=== PATIENT | female | born 1945 | race Caucasian/White ===

== ENCOUNTER 2016-08-22 13:06 | Outpatient (CLI) | payer MEDICARE, OTHER | END 2016-08-22 13:07 | disposition home or self-care (01) | DX: R30.0 Dysuria (principal) ==

== ENCOUNTER 2016-08-28 08:00 | Outpatient (CLI) | payer MEDICARE, OTHER | END 2016-08-28 23:59 | disposition home or self-care (01) | DX: N39.0 Urinary tract infection, site not specified (principal) ==

== ENCOUNTER 2016-09-12 | Outpatient (CLI) | payer MEDICARE, OTHER | END 2016-09-12 18:53 | disposition EMS.NT | DX: Z03.89 Encounter for observation for other suspected diseases and conditions ruled out (principal) ==

== ENCOUNTER 2016-10-30 10:32 | Outpatient (CLI) | payer MEDICARE, OTHER | END 2016-10-30 23:59 | DX: R30.0 Dysuria (principal) ==

== ENCOUNTER 2016-11-16 08:00 | Outpatient (CLI) | payer MEDICARE, OTHER | END 2016-11-16 08:01 | disposition home or self-care (01) | DX: R30.0 Dysuria (principal) ==

== ENCOUNTER 2017-03-28 08:00 | Outpatient (CLI) | payer MEDICARE, OTHER | END 2017-03-28 08:01 | disposition home or self-care (01) | LOC: LAB.WCP 08:00 | PROVIDERS: ATTEND Family Medicine | DX: D39.0 Neoplasm of uncertain behavior of uterus (principal); R19.09 Other intra-abdominal and pelvic swelling, mass and lump | CPT/HCPCS: 36415; 86304 ==

== ENCOUNTER 2017-04-18 08:42 | Outpatient (CLI) | payer MEDICARE, OTHER ==
[2017-04-18 10:07] LABS: INR 1.1 (0.8-1.2); PT - PROTHROMBIN TIME 12.3 secs (9.9-12.6)
[2017-04-18 10:14] LABS: PARTIAL THROMBOPLASTIN TIME 26.4 secs (24.9-33.3)
[2017-04-18] MEDS ORDERED: BUFFERED LIDOCAINE 10 ML SYRINGE IU ONE (11:42)
--- NOTE | 2017-04-18 13:29 | Ultrasound Report ---
ULTRASOUND-GUIDED LEFT THORACENTESIS: 04/18/2017 CLINICAL INDICATION: Likely ovarian cancer, cytology for diagnosis. FINDINGS: Following obtaining informed consent, a suitable site on the patient's left posterior thor ax was selected with ultrasound. The skin was prepped and draped in the usual sterile fashion. The sk in and soft tissues were anesthetized with lidocaine. A Kix-B-[id number] catheter was inserted into the left pleural space, and 500 mL of pleural fluid was removed without difficulty. The patient tolerate d the procedure well. No immediate complications. Fluid was submitted to the lab for cytology. IMPRESSION: SUCCESSFUL LEFT ULTRASOUND-GUIDED THORACENTESIS, YIELDING 500 mL OF FLUID. FLUID SUBMITT ED TO THE LAB FOR CYTOLOGY. JOB #: [id number] EXT JOB #:[id number]
[2017-04-18 15:09] VITALS: BP 149/57
[2017-04-18] MEDS ORDERED: IOPAMIDOL-300 100 ML VIAL IVP ONE (16:05)
--- NOTE | 2017-04-19 08:30 | CT Report ---
CT CHEST WITH AND WITHOUT CONTRAST: 04/18/2017 CLINICAL INDICATION: Large pelvic mass, effusion, evaluate for pulmonary metastatic disease. TECHNIQUE: Axial CT images of the chest were obtained prior to and following 50 mL Isovue-[address] intrav [address] No previous CT is available for comparison. In accordance with CT protocol optimization, one or more of the following dose reduction techniques w ere utilized for this exam: automated exposure control, adjustment of mA and/or KV based on patient size, or use of iterative reconstructive technique. FINDINGS: The heart and great vessels demonstrate atherosclerotic calcifications. A small hiatal he rnia is present. Calcified mediastinal lymph nodes are present. No adenopathy is seen. There is a small residual left pleural effusion (ultrasound-guided left thoracentesis performed prior to CT). T here is a possible left pleural nodule, measuring 1.6 cm, in the lateral costophrenic angle, and left lower lobe atelectasis. Calcified granuloma is noted. No right effusion is seen. No right pulmona ry nodule or mass lesion is appreciated. Osseous structures demonstrate degenerative changes. A cys t is noted in the left lobe of the thyroid. IMPRESSION: POSSIBLE LEFT PLEURAL-BASED NODULE, MEASURING 1.6 CM. SMALL RESIDUAL EFFUSION AND LEFT LOWER LOBE ATELECTASIS. CHANGES OF OLD GRANULOMATOUS DISEASE. JOB #: [id number] EXT JOB #:[id number]
--- NOTE | 2017-04-19 08:38 | CT Report ---
CT ABDOMEN AND PELVIS WITH CONTRAST: 04/18/2017 CLINICAL INDICATION: Large pelvic mass. COMPARISON: Outside CT 02/28/2017. TECHNIQUE: Axial CT images of the abdomen and pelvis were obtained with 50 mL Isovue-300 intravenous ly. In accordance with CT protocol optimization, one or more of the following dose reduction techniques w ere utilized for this exam: automated exposure control, adjustment of mA and/or KV based on patient size, or use of iterative reconstructive technique. FINDINGS: The liver demonstrates changes of old granulomatous disease. A 6-mm hypodensity persists in the left lobe, and a small focus of fatty infiltration is seen adjacent to the falciform ligament. No new hepatic lesion is seen. The spleen demonstrates changes of old granulomatous disease. A sm all splenule is seen in the splenic hilum. Nodular enlargement of the left adrenal gland is stable. The right adrenal gland is unremarkable. The kidneys are unremarkable. The gallbladder is not dila anjali. An IVC filter is noted. No bowel dilatation, free gas, or free fluid is seen. No abdominal ad enopathy is appreciated. Pelvis: The pelvis is dominated by a heterogeneous mass, with its epicenter just left of midline, me asuring approximately 24 x 12 x 15 cm. It demonstrates heterogeneous internal enhancement and cystic spaces, and a few calcifications. Trace free fluid is noted adjacent to the mass and in the cul-de- sac. It likely arose from the left ovary, and has not changed significantly from previous CT. The u terus appears separate from the mass, and appears unremarkable. No definite pelvic sidewall adenopat hy is appreciated. The osseous structures demonstrate degenerative changes. IMPRESSION: LARGE, HETEROGENEOUS MASS IN THE PELVIS, LIKELY ARISING FROM THE LEFT OVARY. TRACE FREE FLUID. NONSPECIFIC 6-MM HYPODENSE NODULE IN THE LEFT LOBE OF THE LIVER, STABLE. JOB #: [id number] EXT JOB #:[id number]
== END 2017-04-18 08:43 | disposition home or self-care (01) ==
LOC: DI 08:42
PROVIDERS: ATTEND Obstetrics & Gynecology Gynecologic Oncology
DX: J90 Pleural effusion, not elsewhere classified (principal); J98.11 Atelectasis; R91.8 Other nonspecific abnormal finding of lung field; R19.04 Left lower quadrant abdominal swelling, mass and lump; K76.9 Liver disease, unspecified
CPT/HCPCS: 32555; 36415; 71270; 74177; 85610; 85730; Q9967

== ENCOUNTER 2017-06-05 08:20 | Outpatient (CLI) | payer MEDICARE, OTHER ==
--- NOTE | 2017-06-06 08:16 | XRAY Report ---
PELVIS AND LEFT HIP: 06/05/2017 COMPARISON STUDY: None. INDICATION: Left hip pain. TECHNIQUE: Two views of the pelvis and left hip. FINDINGS: Normal alignment. No evidence of acute fracture or other acute bone findings. No appreci able degenerative changes. Vascular calcifications are noted. IMPRESSION: ESSENTIALLY NEGATIVE HIP AND PELVIS. 08:9:16 JOB #: [id number] EXT JOB #:[id number]
== END 2017-06-05 08:21 | disposition home or self-care (01) ==
LOC: DI 08:20
PROVIDERS: ATTEND Family Medicine
DX: M25.552 Pain in left hip (principal)

== ENCOUNTER 2017-07-16 15:00 | Outpatient (CLI) | payer MEDICARE, OTHER | END 2017-07-16 15:01 | disposition home or self-care (01) | LOC: LAB.R 15:00 | PROVIDERS: ATTEND Family Medicine | DX: N39.0 Urinary tract infection, site not specified (principal) | CPT/HCPCS: 87086 ==

== ENCOUNTER 2017-08-20 09:59 | Outpatient (CLI) | payer MEDICARE, OTHER ==
[2017-08-20 12:48] LABS: BASOPHILS % (AUTO) 0.6 %; EOSINOPHILS # (AUTO) 0.2 10^3/uL (0.0-0.7); EOSINOPHILS % (AUTO) 2.1 %; HGB - HEMOGLOBIN 13.1 g/dL (12.0-16.0); LYMPHOCYTES # (AUTO) 1.1 10^3/uL (1.5-3.5); MEAN CORPUSCULAR HEMOGLOBIN 29.7 pg (27.0-31.0); MEAN CORPUSCULAR HGB CONC 33.9 g/dL (32.0-36.0); MEAN CORPUSCULAR VOLUME 87.7 fL (81.0-99.0); MONOCYTES # (AUTO) 0.4 10^3/uL (0.0-1.0); MONOCYTES % (AUTO) 4.8 %; NEUTROPHILS # (AUTO) 6.9 10^3/uL (1.5-6.6); NEUTROPHILS % (AUTO) 79.5 %; PLT - PLATELET COUNT 225 10^3/uL (130-450); RED BLOOD COUNT 4.42 10^6/uL (4.20-5.40); RED CELL DISTRIBUTION WIDTH 14.2 % (12.0-15.0); WHITE BLOOD COUNT 8.7 x10^3/uL (4.8-10.8)
[2017-08-20 13:23] LABS: ALBUMIN 3.6 g/dL (3.2-5.5); ALKALINE PHOSPHATASE 75 IU/L (42-121); ALT ALANINE AMINOTRANSFERASE 12 IU/L (10-60); AST ASPARTATE AMINOTRANSFERASE 15 IU/L (10-42); BILIRUBIN,TOTAL 0.2 mg/dL (0.2-1.0); BUN - BLOOD UREA NITROGEN 19 mg/dL (6-20); CALCIUM 8.8 mg/dL (8.5-10.3); CARBON DIOXIDE - CO2 25 mmol/L (21-32); CHLORIDE 104 mmol/L (101-111); CHOL/HDL RATIO 4.3 (<4.4); CHOLESTEROL 152 mg/dL; CREATININE 1.1 mg/dL (0.4-1.0); GFR - MDRD 49 (>89); GLUCOSE 154 mg/dL (70-100); HDL CHOLESTEROL 35 mg/dL; LDL CHOLESTEROL,CALCULATED 83 mg/dL; LDL/HDL RATIO 2.4 (<4.4); SODIUM 137 mmol/L (135-145); TOTAL PROTEIN 7.3 g/dL (6.7-8.2); VLDL CHOLESTEROL 34 mg/dL
== END 2017-08-20 10:00 | disposition home or self-care (01) ==
LOC: LAB.WCP 09:59
PROVIDERS: ATTEND Family Medicine
DX: I10 Essential (primary) hypertension (principal); E78.5 Hyperlipidemia, unspecified
CPT/HCPCS: 36415; 80053; 80061; 84443; 85025

== ENCOUNTER 2017-11-20 08:00 | Outpatient (CLI) | payer MEDICARE, OTHER ==
[2017-11-20 19:40] LABS: ALBUMIN 3.7 g/dL (3.2-5.5); ALBUMIN/GLOBULIN RATIO 1.1 (1.0-2.2); ALKALINE PHOSPHATASE 70 IU/L (42-121); ALT ALANINE AMINOTRANSFERASE 10 IU/L (10-60); AST ASPARTATE AMINOTRANSFERASE 16 IU/L (10-42); BILIRUBIN,TOTAL 0.4 mg/dL (0.2-1.0); BUN - BLOOD UREA NITROGEN 16 mg/dL (6-20); CALCIUM 8.8 mg/dL (8.5-10.3); CARBON DIOXIDE - CO2 27 mmol/L (21-32); CHLORIDE 103 mmol/L (101-111); CHOL/HDL RATIO 4.2 (<4.4); CHOLESTEROL 143 mg/dL; CREATININE 1.1 mg/dL (0.4-1.0); GFR - MDRD 49 (>89); GLUCOSE 122 mg/dL (70-100); HDL CHOLESTEROL 34 mg/dL; LDL CHOLESTEROL,CALCULATED 86 mg/dL; LDL/HDL RATIO 2.5 (<4.4); SODIUM 138 mmol/L (135-145); TOTAL PROTEIN 7.2 g/dL (6.7-8.2); VLDL CHOLESTEROL 23 mg/dL
[2017-11-20 19:48] LABS: BASOPHILS % (AUTO) 0.5 %; EOSINOPHILS # (AUTO) 0.2 10^3/uL (0.0-0.7); EOSINOPHILS % (AUTO) 2.6 %; HGB - HEMOGLOBIN 12.6 g/dL (12.0-16.0); LYMPHOCYTES # (AUTO) 1.6 10^3/uL (1.5-3.5); LYMPHOCYTES % (AUTO) 18.1 %; MEAN CORPUSCULAR HEMOGLOBIN 28.3 pg (27.0-31.0); MEAN CORPUSCULAR HGB CONC 32.3 g/dL (32.0-36.0); MEAN CORPUSCULAR VOLUME 87.7 fL (81.0-99.0); MEAN PLATELET VOLUME 9.1 fL (7.9-10.8); MONOCYTES # (AUTO) 0.4 10^3/uL (0.0-1.0); MONOCYTES % (AUTO) 4.8 %; NEUTROPHILS # (AUTO) 6.6 10^3/uL (1.5-6.6); PLT - PLATELET COUNT 255 10^3/uL (130-450); RED BLOOD COUNT 4.45 10^6/uL (4.20-5.40); RED CELL DISTRIBUTION WIDTH 14.8 % (12.0-15.0); WHITE BLOOD COUNT 8.9 x10^3/uL (4.8-10.8)
[2017-11-20 20:03] LABS: HEMOGLOBIN A1C 0.68 g/dL; HEMOGLOBIN A1C % 6.6 % (4.6-6.2)
== END 2017-11-20 08:01 | disposition home or self-care (01) ==
LOC: LAB.WCP 08:00
PROVIDERS: ATTEND Family Medicine
DX: I10 Essential (primary) hypertension (principal); E11.9 Type 2 diabetes mellitus without complications; E78.5 Hyperlipidemia, unspecified; R30.0 Dysuria
CPT/HCPCS: 36415; 80053; 80061; 82043; 83036; 83721; 85025; 87480; 87510; 87660

== ENCOUNTER 2017-11-20 08:00 | Outpatient (CLI) | payer MEDICARE, OTHER | END 2017-11-20 08:01 | disposition home or self-care (01) | LOC: LAB.R 08:00 | PROVIDERS: ATTEND Family Medicine | DX: R30.0 Dysuria (principal) | CPT/HCPCS: 87480; 87510; 87660 ==

== ENCOUNTER 2017-11-25 08:00 | Outpatient (CLI) | payer MEDICARE, OTHER | END 2017-11-25 23:59 | LOC: LAB.WCP 08:00 | PROVIDERS: ATTEND Family Medicine | DX: E11.9 Type 2 diabetes mellitus without complications (principal) | CPT/HCPCS: 82043 ==

== ENCOUNTER 2017-12-11 08:00 | Outpatient (CLI) | payer MEDICARE, OTHER | END 2017-12-11 23:59 | disposition home or self-care (01) | LOC: LAB.WCP 08:00 | PROVIDERS: ATTEND Family Medicine | DX: E11.9 Type 2 diabetes mellitus without complications (principal) | CPT/HCPCS: 82043 ==

== ENCOUNTER 2017-12-21 16:59 | Outpatient (CLI) | payer MEDICARE, OTHER ==
--- NOTE | 2017-12-23 01:43 | Ultrasound Report ---
EXAM: RENAL ULTRASOUND EXAM DATE: 12/21/2017 06:06 PM. CLINICAL HISTORY: Diabetes mellitus type 2, abnornal labs, hypertension. COMPARISON: 04/18/2017. TECHNIQUE: Real-time scanning was performed with static images obtained. FINDINGS: Right Kidney: 9.5 x 4.6 x 5 cm. Normal echotexture with no stones, contour-deforming masses, or hydro nephrosis. Left Kidney: 8.5 x 4.9 x 5.8 cm. Normal echotexture with no stones, contour-deforming masses, or hydr onephrosis. Bladder: Neither ureteral jet well-seen. Patient voided during the course of the study. Bladder is co mpressed by a large complex 19 cm pelvic mass. Other: Moderately echogenic liver. Study limited given limited mobility of this patient. Patient was unable to cooperate. IMPRESSION: 1. Technically limited study. Patient had limited mobility and was unable to cooperate. 2. No renal mass, stones or hydronephrosis. 3. Large complex 19 cm pelvic mass. [facility] Referring Provider Line: [phone] SITE ID: [id number]
== END 2017-12-21 17:00 | disposition home or self-care (01) ==
LOC: DI 16:59
PROVIDERS: ATTEND Family Medicine
DX: E11.9 Type 2 diabetes mellitus without complications (principal); R89.9 Unspecified abnormal finding in specimens from other organs, systems and tissues; I10 Essential (primary) hypertension; R19.00 Intra-abdominal and pelvic swelling, mass and lump, unspecified site
CPT/HCPCS: 76770

== ENCOUNTER 2018-03-21 22:55 | Outpatient (CLI) | payer MEDICARE, OTHER | END 2018-03-21 22:56 | disposition critical access hospital (66) | LOC: EMS 22:55 | PROVIDERS: ATTEND Surgery | DX: M25.552 Pain in left hip (principal); W19.XXXA Unspecified fall, initial encounter | CPT/HCPCS: A0425; A0427 ==

== ENCOUNTER 2018-03-21 23:18 | Emergency (ER) | payer MEDICARE, OTHER ==
--- NOTE | 2018-03-21 23:29 | ED Physician Documentation ---
PD HPI LOWER EXT INJURY - Stated complaint Stated Complaint: GLF /HIP PAIN - Chief complaint Chief Complaint: Trauma Ext - History obtained from History obtained from: Patient - History of Present Illness PD HPI LOW EXT INJURY LOCATION: Left, Hip Type of injury: Fall Where injury occurred: Home Timing - onset: Today (earlier this afternoon) Timing - details: Abrupt onset Pain level max: 8 Pain level now: 3 Worsened by: Moving Contributing factors: Anticoagulated Similar symptoms before: Has not had sx before Recently seen: Not recently seen - Additional information Additional information: fell earlier today, has had worsening left hip pain since then. Her baseline is wheelchair-bound due to CVA. Given 50mcg Fentanyl en route with good relief. Review of Systems Cardiac: reports: Reviewed and negative Respiratory: reports: Reviewed and negative GI: reports: Reviewed and negative Musculoskeletal: reports: Joint pain (left hip). denies: Neck pain, Back pain Neurologic: reports: Focal weakness (chronic due to CVA; no new weakness). denies: Confused, Altered mental status, Headache, Head injury, LOC PD PAST MEDICAL HISTORY - Past Medical History Endocrine/Autoimmune: Type 2 diabetes GI: GERD Psych: Depression Musculoskeletal: Hemiplegia - Past Surgical History Past Surgical History: Yes HEENT: Tonsil/Adenoidectomy - Present Medications Home Medications: Ambulatory Orders Medication Instructions Recorded Confirmed Aspirin [Aspirin EC] 325 mg PO DAILY 08/22/13 08/22/13 Atorvastatin Calcium [Lipitor] 10 mg PO DAILY 08/22/13 08/22/13 Clopidogrel [Plavix] 75 mg PO DAILY 08/22/13 08/22/13 Gabapentin [Gralise] 600 mg PO DAILY 08/22/13 08/22/13 Levetiracetam [Keppra Xr] 750 mg PO BID #60 tab.er.24h 08/22/13 Mirtazapine [Remeron] 15 mg PO HS 08/22/13 08/22/13 Oxybutynin [Ditropan] 2.5 mg PO DAILY 08/22/13 08/22/13 Pantoprazole Sodium [Protonix] 40 mg PO 08/22/13 08/22/13 Sucralfate [Carafate] 1 gm PO ACHS 08/22/13 08/22/13 - Allergies Allergies/Adverse Reactions: Allergies Allergy/AdvReac Type Severity Reaction Status Date / Time No Known Drug Allergies Allergy Verified 08/22/13 19:47 - Social History Does the pt smoke?: Yes Smoking Status: Current every day smoker Does the pt drink ETOH?: No Does the pt have substance abuse?: No - Immunizations Immunizations are current?: Yes PD ED PE NORMAL - Vitals Vital signs reviewed: Yes - General General: Alert and oriented X 3, No acute distress, Well developed/nourished - Cardiac Cardiac: RRR, No murmur - Respiratory Respiratory: No respiratory distress, Clear bilaterally - Abdomen Abdomen: Soft, Non tender PD ED PE EXPANDED - Extremities Extremities: Tenderness (left hip (to compression of pelvis)), Pedal edema bilateral, Pedal Pulses Present Results - Vitals Vitals: Vital Signs - 24 hr 03/21/18 03/22/18 03/22/18 23:20 00:30 01:30 Temperature 36.2 C L Heart Rate 68 66 66 Respiratory 18 18 18 Rate Blood Pressure 170/55 H 162/58 H 166/60 H O2 Saturation 93 95 95 Oxygen O2 Source Room air - Labs Labs: Laboratory Tests 03/21/18 03/21/18 23:20 23:20 WBC 11.1 H RBC 4.28 Hgb 12.5 Hct 37.2 MCV 86.8 MCH 29.1 MCHC 33.6 RDW 14.8 Plt Count 249 MPV 8.4 Neut # (Auto) 7.7 H Lymph # (Auto) 2.1 [place]ath[place] # (Auto) 0.7 Eos # (Auto) 0.3 Baso # (Auto) 0.3 H Absolute Nucleated RBC 0.01 Nucleated RBC % 0.1 Sodium 136 Potassium 4.2 Chloride 104 Carbon Dioxide 25 Anion Gap 7.0 BUN 21 H Creatinine 1.5 H Estimated GFR (MDRD) 34 L Glucose 175 H Calcium 8.9 - Rads (name of study) chest xray Radiology: Prelim report reviewed, See rad report CTH Radiology: Prelim report reviewed, See rad report left hip xrays Radiology: Prelim report reviewed, See rad report pelvis CT Radiology: Prelim report reviewed, See rad report PD MEDICAL DECISION MAKING - ED course Complexity details: reviewed results, re-evaluated patient, considered differential, d/w patient ED course: Results d/w patient; she is relieved and reassured by unremarkable tests (no fractures seen). She is comfortable going home. - Sepsis Event Vital Signs: Vital Signs - 24 hr 03/21/18 03/22/18 03/22/18 23:20 00:30 01:30 Temperature 36.2 C L Heart Rate 68 66 66 Respiratory 18 18 18 Rate Blood Pressure 170/55 H 162/58 H 166/60 H O2 Saturation 93 95 95 Oxygen O2 Source Room air Departure - Departure Disposition: 01 Home, Self Care Clinical Impression: Fall, Contusion of left hip Condition: Good Instructions: ED Mechanical Fall, ED Contusion Hip Follow-Up: Belem Doe MD [Primary Care Provider] - Discharge Date/Time: 03/22/18 02:53
[2018-03-21 23:47] LABS: BASOPHILS # (AUTO) 0.3 10^3/uL (0.0-0.1); BASOPHILS % (AUTO) 2.6 %; EOSINOPHILS # (AUTO) 0.3 10^3/uL (0.0-0.7); EOSINOPHILS % (AUTO) 2.9 %; HGB - HEMOGLOBIN 12.5 g/dL (12.0-16.0); LYMPHOCYTES # (AUTO) 2.1 10^3/uL (1.5-3.5); LYMPHOCYTES % (AUTO) 18.9 %; MEAN CORPUSCULAR HEMOGLOBIN 29.1 pg (27.0-31.0); MEAN CORPUSCULAR HGB CONC 33.6 g/dL (32.0-36.0); MEAN CORPUSCULAR VOLUME 86.8 fL (81.0-99.0); MEAN PLATELET VOLUME 8.4 fL (7.9-10.8); MONOCYTES # (AUTO) 0.7 10^3/uL (0.0-1.0); MONOCYTES % (AUTO) 6.4 %; NEUTROPHILS # (AUTO) 7.7 10^3/uL (1.5-6.6); NEUTROPHILS % (AUTO) 69.2 %; PLT - PLATELET COUNT 249 10^3/uL (130-450); RED BLOOD COUNT 4.28 10^6/uL (4.20-5.40); RED CELL DISTRIBUTION WIDTH 14.8 % (12.0-15.0); WHITE BLOOD COUNT 11.1 x10^3/uL (4.8-10.8)
[2018-03-21 23:52] LABS: CALCIUM 8.9 mg/dL (8.5-10.3); CREATININE 1.5 mg/dL (0.4-1.0)
--- NOTE | 2018-03-22 00:33 | CT Report ---
Procedure Date: 03/22/2018 Accession Number: [id number] / [id number] Procedure: CT - Head W/O CPT Code: FULL RESULT: EXAM: CT HEAD EXAM DATE: 03/22/2018 12:18 AM. CLINICAL HISTORY: Fall, takes clopidogrel. COMPARISON: HEAD W/O 08/22/2013. TECHNIQUE: Multiaxial CT images were obtained from the foramen magnum to the vertex. Reformats: Sagittal and coronal. IV contrast: None. In accordance with CT protocol optimization, one or more of the following dose reduction techniques were utilized for this exam: automated exposure control, adjustment of mA and/or KV based on patient size, or use of iterative reconstructive technique. FINDINGS: Parenchyma: Large, old right MCA territory infarct. Interval development of dystrophic calcification within the area of injury. Extraaxial Spaces: Normal for age. No subdural or epidural collections identified. Ventricles: Normal in size and position. Sinuses and Orbits: Imaged paranasal sinuses, orbits, and mastoids show no significant abnormality. Bones: No evidence of fracture or calvarial defect. Other: None. IMPRESSION: Large, old right MCA territory infarct. No acute intracranial process identified. [facility]
--- NOTE | 2018-03-22 00:57 | CT Report ---
Procedure Date: 03/22/2018 Accession Number: [id number] / [id number] Procedure: CT - Pelvis W/O CPT Code: FULL RESULT: EXAM: CT BONY PELVIS WITHOUT CONTRAST EXAM DATE: 03/22/2018 12:28 AM. CLINICAL HISTORY: Fall, left hip pain. COMPARISON: ABDOMEN/PELVIS W/ 04/18/2017. TECHNIQUE: Thin-section axial images were acquired of the pelvis without contrast. Post-processing: Coronal and sagittal reformats. Other: None. In accordance with CT protocol optimization, one or more of the following dose reduction techniques were utilized for this exam: automated exposure control, adjustment of mA and/or KV based on patient size, or use of iterative reconstructive technique. FINDINGS: Bones: Osteopenia, which decreases sensitivity for detection of fractures. No definite acute fracture seen. Sacroiliac Joints: Mild degenerative changes. Symphysis Pubis: Mild degenerative changes. Right Hip: No dislocation seen. Vrnt-mf-pceexscw degenerative joint disease. Left Hip: No dislocation seen. Obyy-zy-qcjkkqjm degenerative joint disease. Musculature: Atrophy consistent with age. Pelvic Cavity: Large heterogeneous partially cystic pelvic mass again seen. This contains some calcifications. There is a mild amount of associated free fluid. Other: Severe atherosclerosis. Degenerative changes in the lower lumbar spine with spinal stenosis. IMPRESSION: 1. Osteopenia. No definite acute fracture or dislocation seen. 2. Degenerative changes in the lower lumbar spine with spinal stenosis. 3. Large heterogeneous partially cystic pelvic mass again seen with some internal calcifications and a mild amount of associated free fluid. [facility]
--- NOTE | 2018-03-22 00:58 | XRAY Report ---
Procedure Date: 03/22/2018 Accession Number: [id number] / [id number] Procedure: XR - Hip w/Pelvis 2-3V LT CPT Code: FULL RESULT: EXAM: LEFT HIP AND PELVIS RADIOGRAPHY EXAM DATE: 03/22/2018 12:23 AM. HISTORY: Fall, left hip pain. COMPARISONS: HIP W/PELVIS 2-3V LT 06/05/2017. TECHNIQUE: 1 view of the pelvis and 1 view of the hip. FINDINGS: Bones: Osteopenia. No acute fracture identified. Joints: No dislocation. Ihva-er-cqnycvdd degenerative joint disease in the hips. Soft Tissues: Severe atherosclerosis. IMPRESSION: 1. Osteopenia. No acute fracture or dislocation seen. [facility]
--- NOTE | 2018-03-22 01:01 | XRAY Report ---
Procedure Date: 03/22/2018 Accession Number: [id number] / [id number] Procedure: XR - Chest 1 View X-Ray CPT Code: 54721 FULL RESULT: EXAM: CHEST RADIOGRAPHY EXAM DATE: 03/22/2018 12:26 AM. CLINICAL HISTORY: Fall. COMPARISON: XR CHEST 1 VIEWS 08/28/2012. TECHNIQUE: 1 view. FINDINGS: Lungs/Pleura: Left basilar atelectasis or infiltrate. Small left pleural effusion. Possible trace right effusion. No pneumothorax identified. Mediastinum: Within exam limitations, heart appears borderline enlarged. Aortic atherosclerosis. Mitral annulus calcification. Other: None. IMPRESSION: 1. Borderline heart size with left basilar atelectasis or infiltrate and small left pleural effusion. [facility]
[2018-03-22 02:07] VITALS: BP 166/60
== END 2018-03-22 02:53 | disposition home or self-care (01) ==
LOC: EDUNIT# → ED 23:18
DX: S70.02XA Contusion of left hip, initial encounter (principal); Z79.82 Long term (current) use of aspirin; I69.359 Hemiplegia and hemiparesis following cerebral infarction affecting unspecified side; E11.9 Type 2 diabetes mellitus without complications; F17.200 Nicotine dependence, unspecified, uncomplicated; Z79.02 Long term (current) use of antithrombotics/antiplatelets; Y92.009 Unspecified place in unspecified non-institutional (private) residence as the place of occurrence of the external cause; W06.XXXA Fall from bed, initial encounter
CPT/HCPCS: 36415; 70450; 71045; 72192; 80048; 85025; 99283

== ENCOUNTER 2018-05-27 14:10 | Outpatient (CLI) | payer MEDICARE, OTHER ==
[2018-05-27 18:56] LABS: BASOPHILS % (AUTO) 0.5 %; EOSINOPHILS # (AUTO) 0.2 10^3/uL (0.0-0.7); EOSINOPHILS % (AUTO) 2.3 %; HGB - HEMOGLOBIN 12.3 g/dL (12.0-16.0); LYMPHOCYTES # (AUTO) 1.6 10^3/uL (1.5-3.5); LYMPHOCYTES % (AUTO) 16.9 %; MEAN CORPUSCULAR HEMOGLOBIN 29.5 pg (27.0-31.0); MEAN CORPUSCULAR HGB CONC 33.3 g/dL (32.0-36.0); MEAN CORPUSCULAR VOLUME 88.8 fL (81.0-99.0); MEAN PLATELET VOLUME 8.5 fL (7.9-10.8); MONOCYTES # (AUTO) 0.5 10^3/uL (0.0-1.0); MONOCYTES % (AUTO) 5.8 %; NEUTROPHILS # (AUTO) 6.8 10^3/uL (1.5-6.6); NEUTROPHILS % (AUTO) 74.5 %; PLT - PLATELET COUNT 255 10^3/uL (130-450); RED BLOOD COUNT 4.18 10^6/uL (4.20-5.40); RED CELL DISTRIBUTION WIDTH 15.4 % (12.0-15.0); WHITE BLOOD COUNT 9.2 x10^3/uL (4.8-10.8)
[2018-05-27 19:18] LABS: ALBUMIN 3.3 g/dL (3.2-5.5); ALKALINE PHOSPHATASE 68 IU/L (42-121); ALT ALANINE AMINOTRANSFERASE 12 IU/L (10-60); AST ASPARTATE AMINOTRANSFERASE 16 IU/L (10-42); BILIRUBIN,TOTAL 0.3 mg/dL (0.2-1.0); BUN - BLOOD UREA NITROGEN 16 mg/dL (6-20); CARBON DIOXIDE - CO2 28 mmol/L (21-32); CHLORIDE 99 mmol/L (101-111); CHOL/HDL RATIO 3.4 (<4.4); CHOLESTEROL 131 mg/dL; GFR - MDRD 55 (>89); GLUCOSE 167 mg/dL (70-100); HDL CHOLESTEROL 38 mg/dL; LDL CHOLESTEROL,CALCULATED 56 mg/dL; LDL/HDL RATIO 1.5 (<4.4); SODIUM 136 mmol/L (135-145); TOTAL PROTEIN 6.7 g/dL (6.7-8.2); VLDL CHOLESTEROL 37 mg/dL
[2018-05-27 19:33] LABS: HB2 TOTAL 12.5 g/dL; HEMOGLOBIN A1C 0.64 g/dL; HEMOGLOBIN A1C % 6.8 % (4.6-6.2)
== END 2018-05-27 14:11 | disposition home or self-care (01) ==
LOC: LAB.WCP 14:10
PROVIDERS: ATTEND Family Medicine
DX: I10 Essential (primary) hypertension (principal); E11.9 Type 2 diabetes mellitus without complications; E78.5 Hyperlipidemia, unspecified
CPT/HCPCS: 36415; 80053; 80061; 83036; 83721; 85025

== ENCOUNTER 2018-07-02 07:46 | Outpatient (CLI) | payer MEDICARE, OTHER | END 2018-07-02 07:47 | disposition critical access hospital (66) | LOC: EMS 07:46 | PROVIDERS: ATTEND Surgery | DX: R06.02 Shortness of breath (principal) | CPT/HCPCS: A0425; A0427 ==

== ENCOUNTER 2018-07-02 08:16 | Inpatient (IN) | payer MEDICARE, OTHER ==
[2018-07-02] MEDS ORDERED: ALBUTEROL NEB 2.5 MG/3 ML INH STA ×2 (08:28→11:00)
[2018-07-02] MEDS ORDERED: IOVERSOL 320 100 ML VIAL IVP ONE ×3 (08:40→13:22)
[2018-07-02] MEDS ORDERED: FUROSEMIDE 40 MG/4 ML VIAL IVP STA (09:20)
[2018-07-02] MEDS ORDERED: NITROGLYCERIN SL 0.4 MG TABLET SL STA (09:21)
--- NOTE | 2018-07-02 09:24 | XRAY Report ---
Reason: dyspnea and cough Procedure Date: 07/02/2018 Accession Number: [id number] / [id number] Procedure: XR - Chest 1 View X-Ray CPT Code: 88844 FULL RESULT: EXAM: CHEST RADIOGRAPHY EXAM DATE: 07/02/2018 08:50 AM. CLINICAL HISTORY: Dyspnea and cough. COMPARISON: 03/21/2018. TECHNIQUE: 1 view. FINDINGS: Lungs/Pleura: Interval increase in the previously small left pleural effusion, now moderate with opacification of the left lung base. Coarse interstitial lung markings suggest interstitial pulmonary edema. Mediastinum: The cardiomediastinal silhouette is overall similar to prior with a calcified aortic arch and partial distortion by the hiatal hernia. Other: Large hiatal hernia. IMPRESSION: Interval development of pulmonary edema and increase in the left pleural effusion. [facility]
--- NOTE | 2018-07-02 09:26 | ED Physician Documentation ---
PD HPI DYSPNEA - Stated complaint Stated Complaint: RESPIRATORY DISTRESS - Chief complaint Chief Complaint: Resp - History obtained from History obtained from: Patient, Family (spouse), EMS - History of Present Illness Timing - onset: How many days ago (Her states she has been having increasing shortness of breath over the last several days with some increased cough and then significantly worse this morning.) Timing - onset during: Rest, Light activity Timing - details: Gradual onset, Still present (Worsened breathing today and she is also generally weaker and sleepy.) Inciting event(s): URI (some cough over baseline the past few days), Immobilization/travel. No: Out of meds Improved by: Inhaler/neb (enroute by EMS) Associated symptoms: Cough, Wheezing, Bilateral edema. No: Fever, Chest pain / discomfort Similar symptoms before: Has not had sx before Recently seen: Not recently seen Review of Systems Unable to obtain: AMS, Other (info from as well) Ten Systems: 10 systems reviewed and negative Constitutional: reports: Chills, Myalgias, Fatigue (for few days, increasing). denies: Fever Nose: denies: Rhinorrhea / runny nose, Congestion Throat: denies: Sore throat Cardiac: denies: Chest pain / pressure, Palpitations Respiratory: reports: Dyspnea, Cough, Wheezing GI: denies: Abdominal Pain, Nausea, Vomiting, Diarrhea, Bloody / black stool : denies: Dysuria, Frequency Musculoskeletal: reports: Extremity swelling (chronic) PD PAST MEDICAL HISTORY - Past Medical History Past Medical History: Yes Cardiovascular: Hypertension, High cholesterol Respiratory: COPD Neuro: CVA (with left hemiparesis) Endocrine/Autoimmune: Type 2 diabetes GI: GERD Psych: Depression Musculoskeletal: Hemiplegia - Past Surgical History Past Surgical History: Yes HEENT: Tonsil/Adenoidectomy - Present Medications Home Medications: Ambulatory Orders Medication Instructions Recorded Confirmed Aspirin [Aspirin EC] 325 mg PO DAILY 08/22/13 08/22/13 Atorvastatin Calcium [Lipitor] 10 mg PO DAILY 08/22/13 08/22/13 Clopidogrel [Plavix] 75 mg PO DAILY 08/22/13 08/22/13 Gabapentin [Gralise] 600 mg PO DAILY 08/22/13 08/22/13 Levetiracetam [Keppra Xr] 750 mg PO BID #60 tab.er.24h 08/22/13 Mirtazapine [Remeron] 15 mg PO HS 08/22/13 08/22/13 Oxybutynin [Ditropan] 5 mg PO DAILY 08/22/13 08/22/13 Pantoprazole Sodium [Protonix] 40 mg PO 08/22/13 08/22/13 Sucralfate [Carafate] 1 gm PO ACHS 08/22/13 08/22/13 Lisinopril 20 mg ORAL DAILY 07/02/18 07/02/18 amLODIPine [Norvasc] 5 mg PO ONCE 07/02/18 07/02/18 - Allergies Allergies/Adverse Reactions: Allergies Allergy/AdvReac Type Severity Reaction Status Date / Time No Known Drug Allergies Allergy Verified 07/02/18 08:24 - Living Situation Living Situation: reports: With spouse/s.o. Living Arrangement: reports: At home - Social History Does the pt smoke?: Yes Smoking Status: Current every day smoker Does the pt drink ETOH?: No Does the pt have substance abuse?: No - Family History Family history: reports: Non contributory - Immunizations Immunizations are current?: Yes - POLST Patient has POLST: Yes POLST Status: Limited Interventions (does not want intubation, and I affirmed that with her and her verbally here in ER.) PD ED PE NORMAL - Vitals Vital signs reviewed: Yes - General General: Well developed/nourished. No: Alert and oriented X 3 (resonds to tactile and verbal, with simple answers) - HEENT HEENT: Moist mucous membranes, Pharynx benign - Neck Neck: Supple, no meningeal sign, No adenopathy, Other (JVD noted at 60 degrees) - Cardiac Cardiac: RRR, No murmur - Respiratory Respiratory: No: Clear bilaterally (Diffuse wheezing and prolonged exp phase. No retractions. Fine crackles at bases as well. ) - Abdomen Abdomen: Soft, Non tender, Non distended - Female Female : Deferred - Rectal Rectal: Deferred - Back Back: No CVA TTP - Derm Derm: Normal color - Extremities Extremities: No calf tenderness / cord, Other (2+ edema in both legs up to knees. ) - Neuro Neuro: Normal speech, Other (left sided weakness from prior CVA.). No: Alert and oriented X 3 Eye Opening: To Voice Motor: Obeys Commands Verbal: Confused GCS Score: 13 - Psych Psych: No: Normal affect (flat) Results - Vitals Vitals: Vital Signs - 24 hr 07/02/18 07/02/18 07/02/18 08:18 08:40 09:10 Temperature 36.6 C Heart Rate 86 90 90 Respiratory 29 H 23 28 H Rate Blood Pressure 153/49 H 150/92 H O2 Saturation 100 92 07/02/18 07/02/18 09:28 10:18 Temperature Heart Rate 95 92 Respiratory 29 H 20 Rate Blood Pressure 137/89 H 126/83 H O2 Saturation 93 95 Oxygen O2 Source BIPAP Oxygen Flow Rate 4 - Labs Labs: Laboratory Tests 07/02/18 07/02/18 07/02/18 09:25 09:35 09:35 WBC 10.7 RBC 4.24 Hgb 12.4 Hct 38.1 MCV 89.9 MCH 29.3 MCHC 32.6 RDW 15.4 H Plt Count 268 MPV 7.6 L Neut # (Auto) 9.5 H Lymph # (Auto) 0.8 L [place] # (Auto) 0.3 Eos # (Auto) 0.0 Baso # (Auto) 0.1 Absolute Nucleated RBC 0.00 Nucleated RBC % 0.0 Bld Gas Analysis Time 0927 Sample Site RIGHT RADIAL ABG pH 7.23 L ABG pCO2 70 H* ABG pO2 67 L ABG HCO3 28.8 H ABG Total CO2 31.0 H ABG O2 Saturation 90 L ABG Base Excess -0.3 Navdeep Test POSITIVE O2 Delivery Device NASAL CANNULA O2 Liters/Min 4.00 Sodium 138 Potassium 4.3 Chloride 104 Carbon Dioxide 25 Anion Gap 9.0 BUN 19 Creatinine 1.2 H Estimated GFR (MDRD) 44 L Glucose 219 H Lactic Acid Calcium 8.9 Magnesium 2.2 Total Bilirubin 0.5 AST 16 ALT 14 Alkaline Phosphatase 80 Troponin I B-Natriuretic Peptide Total Protein 7.5 Albumin 3.8 Globulin 3.7 Albumin/Globulin Ratio 1.0 Lipase 32 Urine Color Urine Clarity Urine pH Ur Specific Portal Urine Protein Urine Glucose (UA) Urine Ketones Urine Occult Blood Urine Nitrite Urine Bilirubin Urine Urobilinogen Ur Leukocyte Esterase Urine RBC Urine WBC Urine WBC Clumps Ur Squamous Epith Cells Urine Bacteria Ur Microscopic Review Urine Culture Comments 07/02/18 07/02/18 07/02/18 09:35 09:35 09:35 WBC RBC Hgb Hct MCV MCH MCHC RDW Plt Count MPV Neut # (Auto) Lymph # (Auto) Rosebud # (Auto) Eos # (Auto) Baso # (Auto) Absolute Nucleated RBC Nucleated RBC % Bld Gas Analysis Time Sample Site ABG pH ABG pCO2 ABG pO2 ABG HCO3 ABG Total CO2 ABG O2 Saturation ABG Base Excess Navdeep Test O2 Delivery Device O2 Liters/Min Sodium Potassium Chloride Carbon Dioxide Anion Gap BUN Creatinine Estimated GFR (MDRD) Glucose Lactic Acid 1.1 Calcium Magnesium Total Bilirubin AST ALT Alkaline Phosphatase Troponin I < 0.04 B-Natriuretic Peptide 142 H Total Protein Albumin Globulin Albumin/Globulin Ratio Lipase Urine Color Urine Clarity Urine pH Ur Specific Portal Urine Protein Urine Glucose (UA) Urine Ketones Urine Occult Blood Urine Nitrite Urine Bilirubin Urine Urobilinogen Ur Leukocyte Esterase Urine RBC Urine WBC Urine WBC Clumps Ur Squamous Epith Cells Urine Bacteria Ur Microscopic Review Urine Culture Comments 07/02/18 10:23 WBC RBC Hgb Hct MCV MCH MCHC RDW Plt Count MPV Neut # (Auto) Lymph # (Auto) [place] # (Auto) Eos # (Auto) Baso # (Auto) Absolute Nucleated RBC Nucleated RBC % Bld Gas Analysis Time Sample Site ABG pH ABG pCO2 ABG pO2 ABG HCO3 ABG Total CO2 ABG O2 Saturation ABG Base Excess Navdeep Test O2 Delivery Device O2 Liters/Min Sodium Potassium Chloride Carbon Dioxide Anion Gap BUN Creatinine Estimated GFR (MDRD) Glucose Lactic Acid Calcium Magnesium Total Bilirubin AST ALT Alkaline Phosphatase Troponin I B-Natriuretic Peptide Total Protein Albumin Globulin Albumin/Globulin Ratio Lipase Urine Color YELLOW Urine Clarity CLOUDY Urine pH 5.0 Ur Specific Portal >=1.030 H Urine Protein 100 H Urine Glucose (UA) NEGATIVE Urine Ketones NEGATIVE Urine Occult Blood SMALL H Urine Nitrite POSITIVE H Urine Bilirubin NEGATIVE Urine Urobilinogen 0.2 (NORMAL) Ur Leukocyte Esterase MODERATE H Urine RBC 0-5 Urine WBC >25 H Urine WBC Clumps PRESENT Ur Squamous Epith Cells FEW Squamous Urine Bacteria Moderate H Ur Microscopic Review INDICATED Urine Culture Comments INDICATED - Rads (name of study) chest xray Radiology: Prelim report reviewed (Interstitial edema consistent with CHF. There is small effusion noted. There is a moderate sized hiatal hernia not seen on prior x-ray. There are no focal infiltrates.) PD MEDICAL DECISION MAKING - ED course Complexity details: reviewed results (Her chest x-ray appears more like CHF. Interval findings are a possibly new hiatal hernia. There are no focal infiltrates seen to suggest pneumonia. She does have a normal white count and lactate and no fever. She has have a leg edema and some fine crackles at the bases of her lungs so there could be some element of pulmonary edema or congestive heart failure. She does have diffuse wheezing as well. So again some elements to sound like COPD, CHF, infectious process. We are treating along the lines of all of these. Her blood gas had shown some respiratory failure with a PCO2 of 70 and she was placed on BiPAP and is starting to have an improved alertness.), re-evaluated patient, considered differential (She has elements that sound like CHF as well as COPD and consider infectious cause as well. Has been gradual onset with worsening today. She does appear sleepy and harder to arouse. She has edema in both legs that her says is common. She has diffuse wheezing as well.), d/w patient - Critical Care Time(min): 45 Time Includes: Direct patient care, Coordinate care, Medical consult, Family consult for jul Data interpretation: Labs, Pulse ox, ABG, CXR Departure - Departure Disposition: 66 CAH DC/Xfer Clinical Impression: Respiratory distress, Acute exacerbation of COPD with asthma CHF (congestive heart failure) Qualifiers: Heart failure type: unspecified Heart failure chronicity: unspecified Qualified Code(s): I50.9 - Heart failure, unspecified Condition: Fair Record reviewed to determine appropriate education?: Yes
[2018-07-02 09:30] LABS: ABG PH 7.23 (7.35-7.45)
[2018-07-02 09:31] LABS: ABG BASE EXCESS -0.3 mmol/L (-2.0-3.0); ABG HCO3 28.8 mmol/L (22.0-26.0); ABG OXYGEN SATURATION 90 % (94-98); ABG PO2 67 mmHg (80-100); ALLEN TEST POSITIVE
[2018-07-02 09:34] LABS: ABG PCO2 70 mmHg (34-45)
[2018-07-02 09:38] LABS: BASOPHILS # (AUTO) 0.1 10^3/uL (0.0-0.1); BASOPHILS % (AUTO) 0.5 %; EOSINOPHILS % (AUTO) 0.5 %; HGB - HEMOGLOBIN 12.4 g/dL (12.0-16.0); LYMPHOCYTES # (AUTO) 0.8 10^3/uL (1.5-3.5); LYMPHOCYTES % (AUTO) 7.3 %; MEAN CORPUSCULAR HEMOGLOBIN 29.3 pg (27.0-31.0); MEAN CORPUSCULAR HGB CONC 32.6 g/dL (32.0-36.0); MEAN CORPUSCULAR VOLUME 89.9 fL (81.0-99.0); MEAN PLATELET VOLUME 7.6 fL (7.9-10.8); MONOCYTES # (AUTO) 0.3 10^3/uL (0.0-1.0); MONOCYTES % (AUTO) 3.2 %; NEUTROPHILS # (AUTO) 9.5 10^3/uL (1.5-6.6); NEUTROPHILS % (AUTO) 88.5 %; PLT - PLATELET COUNT 268 10^3/uL (130-450); RED BLOOD COUNT 4.24 10^6/uL (4.20-5.40); RED CELL DISTRIBUTION WIDTH 15.4 % (12.0-15.0); WHITE BLOOD COUNT 10.7 x10^3/uL (4.8-10.8)
[2018-07-02] MEDS ORDERED: DEXAMETHASONE 10 MG/ML VIAL IVP STA (09:50)
[2018-07-02 09:57] LABS: ALBUMIN 3.8 g/dL (3.2-5.5); BILIRUBIN,TOTAL 0.5 mg/dL (0.2-1.0); CALCIUM 8.9 mg/dL (8.5-10.3); CREATININE 1.2 mg/dL (0.4-1.0); MAGNESIUM 2.2 mg/dL (1.7-2.8); TOTAL PROTEIN 7.5 g/dL (6.7-8.2)
[2018-07-02] MEDS ORDERED: cefTRIAXone 1 GM VIAL IVP STA (10:26)
[2018-07-02] MEDS ORDERED: AZITHROMYCIN INJ 500 MG in SODIUM CHLORIDE 0.9% 250 ML IV STA (10:26)
[2018-07-02 10:36] LABS: BILIRUBIN,URINE NEGATIVE (NEGATIVE); GLUCOSE, URINE (UA) NEGATIVE (NEGATIVE); KETONES,URINE (UA) NEGATIVE (NEGATIVE); LEUKOCYTE ESTERASE, URINE MODERATE (NEGATIVE); NITRITE,URINE POSITIVE (NEGATIVE); OCCULT BLOOD,URINE SMALL (NEGATIVE); PROTEIN,URINE 100 mg/dL (NEGATIVE); UROBILINOGEN,URINE 0.2 (NORMAL) E.U./dL (NORMAL)
[2018-07-02 10:37] LABS: CLARITY,URINE CLOUDY (CLEAR)
[2018-07-02 10:46] LABS: BACTERIA,URINE Moderate /HPF (None Seen); RBC,URINE 0-5 /HPF (0-5); SQUAMOUS EPITHELIAL CELL,UR FEW Squamous (<= Few)
[2018-07-02 10:47] LABS: WBC CLUMPS,URINE PRESENT
[2018-07-02] MEDS ORDERED: PROMETHAZINE 25 MG/1 ML VIAL IM PRN (10:57)
[2018-07-02] MEDS ORDERED: ONDANSETRON 4 MG/2 ML VIAL IVP PRN (10:57)
[2018-07-02] MEDS ORDERED: PROCHLORPERAZINE 10 MG/2 ML VIAL IVP PRN (10:57)
[2018-07-02] MEDS ORDERED: amLODIPine 5 MG TABLET PO SCH (11:00)
--- NOTE | 2018-07-02 11:10 | HISTORY & PHYSICAL EXAMINATION ---
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 The patient is unable to provide me with history as she is on BiPAP and sedated at the time I saw her. The history is provided by the patient's . The patient's states that for the last 3-4 days he is noted that his has been having increasing lethargy. He states that she has been falling asleep in her wheelchair more and more frequently throughout the day. He also states that she is having increasing shortness of breath and audible wheezing. He states that she is got a productive cough that is been getting worse over the last 2-3 days. He states that today he became very concerned when the patient was not only lethargic but very weak. He states that normally he is able to get her to transfer out of her wheelchair with her using her right side to support him. He states today she was unable to help him at all. He also noticed that she became increasingly short of breath and lethargic throughout the morning. He noticed that she was having very loud wheezing and looked as though she was going to stop breathing. He states that her blood pressure was in the 190s this morning. He states that he became concerned and was not sure if she was going to make it so he called 911. He states that she was recently diagnosed with an ovarian tumor but she is not a surgical candidate so he states that at this point she is just waiting to from this tumor. He states that she continues to smoke 1 cigarette every 30 minutes while she is awake. He states that he is her primary caregiver and takes care of her activities of daily living alone at home. He states that she has been previously followed by palliative care but at this point he is not requiring any help in her care. Patient is unable to provide a review of systems due to being on BiPAP and sedated. On presentation to the emergency department the patient was afebrile, hypertensive with a blood pressure 153/49, tachypneic with respiratory rate of 29 and was brought in hypoxic on a nonrebreather. She was very lethargic on presentation to the emergency department and underwent an ABG which revealed that she was hypercapnic with a PCO2 of 70 and pH of 7.23. She was placed on BiPAP for hypercapnic respiratory failure. The patient's lab work revealed no leukocytosis, she did have a mildly elevated creatinine which was not far from her baseline and she was hyperglycemic with a glucose of 219. The patient's lactic acid was normal. She had a negative troponin and her BNP was 142. The patient's urinalysis was positive for nitrites, leukocyte esterase, greater than 25 WBCs and moderate bacteria. The patient underwent a chest x-ray which revealed pulmonary edema and increased left pleural effusion. The patient's chest CT angiogram revealed no evidence of a pulmonary embolism but did reveal a loculated moderate sized left pleural effusion and small to moderate simple appearing right pleural effusion with consolidation in the left lower lobe. The patient also had a 2.6 cm hypodense left thyroid nodule. The patient was admitted to the intensive care unit for hypercapnic respiratory failure secondary to pneumonia with parapneumonic effusion, pulmonary edema and COPD exacerbation. 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 Thyroid nodule - Past Surgical History HEENT: reports: Tonsil/Adenoidectomy - Family & Social History Family History: Mother: , Diabetes, Type 2, Father: , [place], Sister: Cancer (Sister had breast cancer) Living arrangement: At home Living Situation: With spouse/s.o. Social History Notes: Patient lives in [place] with her to whom she has been to for 46 years. They have 1 daughter who is 46 years old. 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 She was born in [place] and moved to [facility] 40 years ago. She is currently wheelchair bound and requires help with most of her activities of daily living from her . She is a smoker and smokes a pack a day has been doing so for over 50 years. She does not drink alcohol or use any illicit drugs. - POLST Patient has POLST: Yes POLST Status: Limited Interventions (does not want intubation, and I affirmed that with her and her verbally here in ER.) Meds/Allgy - Home Medications Home Medications: Ambulatory Orders Medication Instructions Recorded Confirmed Aspirin [Aspirin EC] 325 mg PO DAILY 08/22/13 08/22/13 Atorvastatin Calcium [Lipitor] 10 mg PO DAILY 08/22/13 08/22/13 Clopidogrel [Plavix] 75 mg PO DAILY 08/22/13 08/22/13 Gabapentin [Gralise] 600 mg PO DAILY 08/22/13 08/22/13 Levetiracetam [Keppra Xr] 750 mg PO BID #60 tab.er.24h 08/22/13 Mirtazapine [Remeron] 15 mg PO HS 08/22/13 08/22/13 Oxybutynin [Ditropan] 5 mg PO DAILY 08/22/13 08/22/13 Pantoprazole Sodium [Protonix] 40 mg PO 08/22/13 08/22/13 Sucralfate [Carafate] 1 gm PO ACHS 08/22/13 08/22/13 Lisinopril 20 mg ORAL DAILY 07/02/18 07/02/18 amLODIPine [Norvasc] 5 mg PO ONCE 07/02/18 07/02/18 - Allergies Allergies/Adverse Reactions: Allergies Allergy/AdvReac Type Severity Reaction Status Date / Time No Known Drug Allergies Allergy Verified 07/02/18 08:24 Review of Systems - Other Findings Other Findings: Patient unable to provide a complaints of review of systems secondary to being sedated and on BiPAP. The pertinent positives and negatives were provided by the patient's and are stated above in the HPI. Prior Level of Functionality: Patient is wheelchair-bound as she had a stroke 5 years ago and has severe left- sided weakness. She is dependent on her for her activities of daily living. Exam - Vital Signs Reviewed Vital Signs: Yes Vital Signs: Vital Signs x48h Temp Pulse Resp BP Pulse Ox 07/02/18 10:18 92 20 126/83 H 95 07/02/18 09:28 95 29 H 137/89 H 93 07/02/18 09:10 90 28 H 150/92 H 92 07/02/18 08:40 90 23 07/02/18 08:18 36.6 C 86 29 H 153/49 H 100 - Physical Exam General Appearance: positive: Other (Patient is on BiPAP and difficult to arouse. Currently she is not following commands.) Eyes Bilateral: positive: Normal inspection, PERRL, EOMI, No lid inflammation, Conjunctivae nml, No scleral icterus ENT: positive: ENT inspection nml, Pharynx nml, No signs of dehydration. negative: Purulent nasal drainage, Pharyngeal erythema, Oral lesions Neck: positive: Nml inspection, Thyroid nml, No JVD, Trachea midline. negative: Thyromegaly, Lymphadenopathy (R), Lymphadenopathy (L), Stiff neck, Carotid bruit, Tracheal deviation Respiratory: positive: Chest non-tender, Wheezes (Scattered throughout, expir atory), Rales (Bilateral worse in the left lung), Rhonchi (Left lower lobe), Other (On BiPAP) Cardiovascular: positive: Regular rate & rhythm, No gallop, Systolic murmur Peripheral Pulses: positive: 2+ Abdomen: positive: No organomegaly, Nml bowel sounds, Tenderness (Abdomen is tender on palpation diffusely, distended with palpable mass in the lower abdomen.), Guarding. negative: Rebound, Hepatomegaly Back: positive: Nml inspection. negative: CVA tenderness (R), CVA tenderness (L) Skin: positive: Color nml, No rash, Warm, Dry. negative: Diaphoresis, Pallor, Skin rash Extremities: positive: Non-tender, Full ROM, Pedal edema (Bilateral lower extremity edema 2+ pitting) Neurologic/Psychiatric: positive: Other (Unable to fully assess a neurologic exam due to patient being lethargic and sedated on BiPAP.) Conclusion/Plan - Problem List (1) Acute respiratory failure with hypercapnia Conclusion/Plan: Patient presented with several days of increasing shortness of breath, coughing increasing lethargy and weakness. On presentation the patient was found to be hypercapnic with a PCO2 of 70 and pH of 7.23. The patient's hypercapnia was thought to likely be multifactorial as the patient did appear to have a COPD exacerbation, also had pulmonary edema, a loculated left pleural effusion and consolidation concerning for pneumonia. The patient was placed on BiPAP in the emergency department. Plan: BiPAP Monitor ABGs IV antibiotics with ceftriaxone and azithromycin IV Lasix twice daily Supplemental oxygen DuoNeb's [id number] and as needed IV steroids Consider surgical consult for chest tube placement for the loculated effusion (2) Loculated pleural effusion Conclusion/Plan: The patient has a loculated left pleural effusion as is noted on the CT of her chest. This appears most likely to be a parapneumonic effusion given her underlying consolidation and presentation with hypercapnic respiratory failure. We will treat the patient with IV antibiotics and BiPAP for now. If the patient does not show improvement we will need to consult surgery for possible chest tube placement and further recommendations for this loculated pleural effusion. (3) CAP (community acquired pneumonia) Conclusion/Plan: The patient presented with hypercapnic respiratory failure. She has been having increasing shortness of breath, increasing cough with sputum production and lethargy over the last few days. The patient's CT scan shows that she has con solidation in the left lower lobe. This is consistent with pneumonia which is likely contributing to her hypercapnic respiratory failure. The patient will be treated with IV ceftriaxone and azithromycin and will be continued on treatment for COPD exacerbation. The patient appears to have a parapneumonic effusion in the left lung. We will need to consult surgery for possible chest tube placement once patient is off of BiPAP. Qualifiers: Laterality: left Lung location: lower lobe of lung Qualified Code(s): J18 .1 - Lobar pneumonia, unspecified organism (4) COPD exacerbation Conclusion/Plan: The patient has a history of COPD secondary to tobacco abuse. The patient is very wheezy on examination and has hypercapnic respiratory failure requiring BiPAP. Plan: Continue BiPAP Duo nebs [id number] and as needed IV Solu-Medrol 40 mg every 6 hours Supplemental oxygen IV azithromycin (5) Pulmonary edema Conclusion/Plan: The patient has bilateral pulmonary edema which appears likely secondary to hypertension and was likely flash pulmonary edema. The patient's echocardiogram does not show evidence of systolic or diastolic heart failure. The patient was given a dose of IV Lasix in the emergency department and placed on BiPAP for hypercapnic respiratory failure. Plan: IV Lasix twice daily Monitor BMP Continue BiPAP Qualifiers: Chronicity: acute Qualified Code(s): J81.0 - Acute pulmonary edema (6) UTI (urinary tract infection) Conclusion/Plan: The patient presented with acute respiratory failure and hypercapnia. The patient has been lethargic for the last 2-3 days along with having shortness of breath. The patient's urine analysis did reveal that she has a ongoing urinary tract infection. This may be partly why she has been lethargic for the last few days. Plan: IV ceftriaxone Await urine cultures Qualifiers: Urinary tract infection type: acute cystitis (7) Thyroid nodule Conclusion/Plan: The patient was found to have a incidental thyroid nodule on CT of her thorax. The nodule measures 2.6 cm. Plan: Thyroid ultrasound TSH, T3, T4 (8) Tobacco abuse Conclusion/Plan: The patient continues to smoke 1 pack/day. She likely has COPD. The patient will be counseled on the need to quit smoking once she is more awake and alert. We will place the patient on a nicotine patch while she is hospitalized. (9) Hypertension Conclusion/Plan: The patient has a history of uncontrolled hypertension. The patient's states that this morning the patient's blood pressure was elevated at 196 systolic. On presentation to the emergency department the patient's blood pressure was improved. The patient did have finding of pulmonary edema on her chest x-ray. This may have been secondary to uncontrolled hypertension. The patient's echocardiogram of appears to be normal without any systolic heart failure or significant valvular disease. The patient may have developed flash pulmonary edema from hypertension. Plan: Patient will be continued on her home antihypertensives once she is more alert and able to swallow. If patient continues to be lethargic we will need to place her on IV antihypertensives as needed We will continue to monitor the patient's blood pressure and titrate medications as needed. Qualifiers: Hypertension type: essential hypertension Qualified Code(s): I10 - Essen tial (primary) hypertension (10) Diabetes Conclusion/Plan: The patient has a history of diabetes but does not appear to be on any medications at home. On presentation to the emergency department she is hyperglycemic with a blood glucose of 219. The patient is going to be on steroids for treatment of COPD therefore expect that she will continue to be in creasingly hyperglycemic. Plan: Place patient on sliding scale insulin Check hemoglobin A1c Check blood glucose before meals at bedtime Diabetic diet Qualifiers: Diabetes mellitus type: type 2 Diabetes mellitus terminal operator insulin use: without fdc use Diabetes mellitus complication status: with hyperglycemia Qualified Code(s): E11.65 - Type 2 diabetes mellitus with hyperglycemia (11) Ovarian mass Conclusion/Plan: The patient has an ovarian mass for which she has been evaluated by oncology. The mass is 22 cm and she has an elevated CA 125 of 365. The recommendation was for her to have surgical removal of this mass however the patient's neurologist did not clear her for the procedure as he felt that there was too high risk of the patient developing another stroke. At this point the patient is not a surgical candidate. It appears that the patient discussed chemotherapy options with the oncologist but is also not a candidate for systemic chemotherapy. She was recommended for palliative care only. Plan: Consult palliative care (12) History of CVA (cerebrovascular accident) Conclusion/Plan: The patient has a history of a CVA about 5 years ago from which she has severe left-sided weakness and is wheelchair bound. Plan: Patient will be continued on her home doses of aspirin, Plavix and Lipitor. 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 (13) Goals of care, counseling/discussion Conclusion/Plan: Patient does not want to be intubated or resuscitated. She is a DNR/DNI. She has an ovarian mass which is likely cancerous but she is not a candidate for chemotherapy or surgery. She is being admitted for hypercapnic respiratory failure and has a loculated left pleural effusion. She has a very complicated patient and has a very high risk of mortality. If patient is not improving over the next couple of days we will need to discuss further with the family the goals of her care as it may not be of any benefit to the patient to aggressively care for the loculated pleural effusion. We will hold off on consulting surgery at this time until patient has either stabilized or in the case the pat ient is not improving. We will also consult palliative care as they have been involved in her case in the past. - Lab Results Lab results reviewed: Yes Fish Bones: 07/02/18 09:35 07/02/18 09:35 Other Lab Results: Laboratory Tests 07/02/18 07/02/18 07/02/18 09:25 09:35 09:35 WBC 10.7 RBC 4.24 Hgb 12.4 Hct 38.1 MCV 89.9 MCH 29.3 MCHC 32.6 RDW 15.4 H Plt Count 268 MPV 7.6 L Neut # (Auto) 9.5 H Lymph # (Auto) 0.8 L Rains # (Auto) 0.3 Eos # (Auto) 0.0 Baso # (Auto) 0.1 Absolute Nucleated RBC 0.00 Nucleated RBC % 0.0 Bld Gas Analysis Time 09 Sample Site RIGHT RADIAL ABG pH 7.23 L ABG pCO2 70 H* ABG pO2 67 L ABG HCO3 28.8 H ABG Total CO2 31.0 H ABG O2 Saturation 90 L ABG Base Excess -0.3 Navdeep Test POSITIVE O2 Delivery Device NASAL CANNULA O2 Liters/Min 4.00 Sodium 138 Potassium 4.3 Chloride 104 Carbon Dioxide 25 Anion Gap 9.0 BUN 19 Creatinine 1.2 H Estimated GFR (MDRD) 44 L Glucose 219 H Lactic Acid Calcium 8.9 Magnesium 2.2 Total Bilirubin 0.5 AST 16 ALT 14 Alkaline Phosphatase 80 Troponin I B-Natriuretic Peptide Total Protein 7.5 Albumin 3.8 Globulin 3.7 Albumin/Globulin Ratio 1.0 Lipase 32 Urine Color Urine Clarity Urine pH Ur Specific Caraway Urine Protein Urine Glucose (UA) Urine Ketones Urine Occult Blood Urine Nitrite Urine Bilirubin Urine Urobilinogen Ur Leukocyte Esterase Urine RBC Urine WBC Urine WBC Clumps Ur Squamous Epith Cells Urine Bacteria Ur Microscopic Review Urine Culture Comments 07/02/18 07/02/18 07/02/18 09:35 09:35 09:35 WBC RBC Hgb Hct MCV MCH MCHC RDW Plt Count MPV Neut # (Auto) Lymph # (Auto) Rains # (Auto) Eos # (Auto) Baso # (Auto) Absolute Nucleated RBC Nucleated RBC % Bld Gas Analysis Time Sample Site ABG pH ABG pCO2 ABG pO2 ABG HCO3 ABG Total CO2 ABG O2 Saturation ABG Base Excess Navdeep Test O2 Delivery Device O2 Liters/Min Sodium Potassium Chloride Carbon Dioxide Anion Gap BUN Creatinine Estimated GFR (MDRD) Glucose Lactic Acid 1.1 Calcium Magnesium Total Bilirubin AST ALT Alkaline Phosphatase Troponin I < 0.04 B-Natriuretic Peptide 142 H Total Protein Albumin Globulin Albumin/Globulin Ratio Lipase Urine Color Urine Clarity Urine pH Ur Specific Caraway Urine Protein Urine Glucose (UA) Urine Ketones Urine Occult Blood Urine Nitrite Urine Bilirubin Urine Urobilinogen Ur Leukocyte Esterase Urine RBC Urine WBC Urine WBC Clumps Ur Squamous Epith Cells Urine Bacteria Ur Microscopic Review Urine Culture Comments 07/02/18 10:23 WBC RBC Hgb Hct MCV MCH MCHC RDW Plt Count MPV Neut # (Auto) Lymph # (Auto) Rains # (Auto) Eos # (Auto) Baso # (Auto) Absolute Nucleated RBC Nucleated RBC % Bld Gas Analysis Time Sample Site ABG pH ABG pCO2 ABG pO2 ABG HCO3 ABG Total CO2 ABG O2 Saturation ABG Base Excess Navdeep Test O2 Delivery Device O2 Liters/Min Sodium Potassium Chloride Carbon Dioxide Anion Gap BUN Creatinine Estimated GFR (MDRD) Glucose Lactic Acid Calcium Magnesium Total Bilirubin AST ALT Alkaline Phosphatase Troponin I B-Natriuretic Peptide Total Protein Albumin Globulin Albumin/Globulin Ratio Lipase Urine Color YELLOW Urine Clarity CLOUDY Urine pH 5.0 Ur Specific Caraway >=1.030 H Urine Protein 100 H Urine Glucose (UA) NEGATIVE Urine Ketones NEGATIVE Urine Occult Blood SMALL H Urine Nitrite POSITIVE H Urine Bilirubin NEGATIVE Urine Urobilinogen 0.2 (NORMAL) Ur Leukocyte Esterase MODERATE H Urine RBC 0-5 Urine WBC >25 H Urine WBC Clumps PRESENT Ur Squamous Epith Cells FEW Squamous Urine Bacteria Moderate H Ur Microscopic Review INDICATED Urine Culture Comments INDICATED - Diagnostic Imaging Results Diagnostic Imaging Results: positive: Final report reviewed Diagnostic Imaging Results Comments: Chest x-ray Impression: Interval development of pulmonary edema and increase in the left pleural effusion CT/thorax angiogram Impression: Loculated moderate sized left pleural effusion and small to moderate simple appearing right pleural effusion. Consolidation in the left lower lobe. No pulmonary emboli. There is a 2.6 cm hypodense left thyroid nodule, recommend characterization by ultrasound if this has not been done. - EKG Results EKG Interpreted Independently: Yes EKG Findings: Anterior Q waves suggesting old anterior MT. No ST elevations or acute changes Core Measures - Anticipated LOS I expect patient to be DC'd or transferred within 96 hours.: Yes - DVT/VTE - Prophylaxis VTE/DVT Prophylaxis med ordered at admit?: Yes
[2018-07-02 11:22] LABS: ABG BASE EXCESS -2.6 mmol/L (-2.0-3.0); ABG HCO3 25.3 mmol/L (22.0-26.0); ABG PCO2 59 mmHg (34-45); ABG PH 7.25 (7.35-7.45); ABG PO2 65 mmHg (80-100); ABG TCO2 27.1 MMOL/L (21.0-29.0)
[2018-07-02 11:23] LABS: ABG OXYGEN SATURATION 90 % (94-98); ALLEN TEST POSITIVE
--- NOTE | 2018-07-02 13:02 | CT Report ---
Reason: Acute respiratory failure Procedure Date: 07/02/2018 Accession Number: [id number] / [id number] Procedure: CT - Chest Angio (PE) CPT Code: FULL RESULT: EXAM: CT ANGIOGRAM CHEST EXAM DATE: 07/02/2018 12:08 PM. CLINICAL HISTORY: Acute respiratory failure. COMPARISON: CHEST W/WO 04/18/2017 1:18 PM. TECHNIQUE: Routine helical imaging was performed through the chest in the pulmonary arterial phase. IV Contrast: ISOVUE 300 80mL. Reconstructions: Coronal 3-D MIP reconstructions.Sagittal and coronal. In accordance with CT protocol optimization, one or more of the following dose reduction techniques were utilized for this exam: automated exposure control, adjustment of mA and/or KV based on patient size, or use of iterative reconstructive technique. FINDINGS: Pulmonary Arteries: Diagnostic quality: Adequate through the segmental arteries. No evidence for acute or chronic pulmonary emboli. RV/LV is within normal limits. There is no interventricular septal bowing. There is no reflux of contrast material in the IVC. Lungs/Pleura: Loculated moderate-sized left pleural effusion and small to moderate simple-appearing right pleural effusion. Consolidation in the left lower lobe. Mediastinum: Marked three-vessel coronary calcifications, normal size of cardiac chambers. Thoracic Aorta: Markedly atherosclerotic without aneurysm. Upper Abdomen: Marked atherosclerotic disease as well as thickening of the left adrenal gland, stable compared to 2017. Prior granulomatous disease in liver and spleen is again seen. Other: There is a 2.3 x 2.6 cm hypodense left thyroid nodule. IMPRESSION: No pulmonary emboli. New right pleural effusion with the complex left pleural effusion stable to mildly increased in size, persistent consolidation in the left lower lobe compared to 2017. There is a 2.6 cm hypodense left thyroid nodule, recommend catheterization by ultrasound if this has not been done. RADIA
[2018-07-02] MEDS: methylPREDNISolone SUCCINATE 40 MG/ML VIAL IVP SCH ×2 (13:07→18:12)
[2018-07-02] MEDS: SODIUM CHLORIDE FLUSH 0.9% 10 ML SYRINGE IVP SCH ×2 (13:08→18:12)
[2018-07-02] MEDS ORDERED: IOPAMIDOL-300 100 ML VIAL IVP ONE (13:13)
[2018-07-02] MEDS: INSULIN REGULAR HUMAN 100 UNIT/1 ML 10 ML MDV SUBQ SCH ×2 (13:46→18:33)
[2018-07-02] MEDS: GABAPENTIN 300 MG CAPSULE PO STA ×2 (15:47→15:58)
[2018-07-02] MEDS: ACETAMINOPHEN 500 MG TABLET PO STA ×2 (15:47→15:57)
[2018-07-02] MEDS: INSULIN ASPART 300 UNIT/3 ML PEN SUBQ SCH ×2 (15:52→18:32)
[2018-07-02 17:19] LABS: ABG PH 7.29 (7.35-7.45)
[2018-07-02 17:20] LABS: ABG PO2 93 mmHg (80-100)
[2018-07-02 17:21] LABS: ABG BASE EXCESS 0.7 mmol/L (-2.0-3.0); ABG HCO3 28.4 mmol/L (22.0-26.0); ABG OXYGEN SATURATION 96 % (94-98); ABG TCO2 30.2 MMOL/L (21.0-29.0); ALLEN TEST POSITIVE
[2018-07-02 17:27] LABS: ABG PCO2 60 mmHg (34-45)
[2018-07-02] MEDS: SACCHAROMYCES BOULARDII 250 MG CAPSULE PO SCH (18:33)
[2018-07-02] MEDS ORDERED: BISACODYL 10 MG SUPP PR ONE (18:44)
[2018-07-02] MEDS: IPRATROPIUM/ALBUTEROL 3 ML NEB INH SCH ×2 (19:46→20:13)
[2018-07-02] MEDS ORDERED: FUROSEMIDE 40 MG/4 ML VIAL IVP SCH (21:00)
[2018-07-02] MEDS: FAMOTIDINE 20 MG/50 ML 50 ML IV SCH (21:14)
[2018-07-03] MEDS: INSULIN GLARGINE 300 UNIT/3 ML PEN SUBQ SCH ×2 (00:41→21:16)
[2018-07-03] MEDS: INSULIN REGULAR HUMAN 100 UNIT/1 ML 10 ML MDV SUBQ SCH ×3 (00:41→12:36)
[2018-07-03] MEDS: methylPREDNISolone SUCCINATE 40 MG/ML VIAL IVP SCH ×4 (00:42→18:07)
[2018-07-03] MEDS: SODIUM CHLORIDE FLUSH 0.9% 10 ML SYRINGE IVP SCH ×3 (00:44→17:03)
[2018-07-03] MEDS: INSULIN ASPART 300 UNIT/3 ML PEN SUBQ SCH ×5 (00:45→21:17)
[2018-07-03 05:08] LABS: BASOPHILS % (AUTO) 0.1 %; HGB - HEMOGLOBIN 11.4 g/dL (12.0-16.0); LYMPHOCYTES # (AUTO) 0.5 10^3/uL (1.5-3.5); LYMPHOCYTES % (AUTO) 7.6 %; MEAN CORPUSCULAR HGB CONC 31.6 g/dL (32.0-36.0); MEAN CORPUSCULAR VOLUME 91.6 fL (81.0-99.0); MEAN PLATELET VOLUME 7.9 fL (7.9-10.8); MONOCYTES # (AUTO) 0.1 10^3/uL (0.0-1.0); MONOCYTES % (AUTO) 2.1 %; NEUTROPHILS # (AUTO) 5.5 10^3/uL (1.5-6.6); NEUTROPHILS % (AUTO) 90.2 %; PLT - PLATELET COUNT 258 10^3/uL (130-450); RED BLOOD COUNT 3.93 10^6/uL (4.20-5.40); WHITE BLOOD COUNT 6.1 x10^3/uL (4.8-10.8)
[2018-07-03 05:11] LABS: INR 1.1 (0.8-1.2); PT - PROTHROMBIN TIME 12.9 secs (9.9-12.6)
[2018-07-03 05:20] LABS: ALBUMIN 3.3 g/dL (3.2-5.5); ALBUMIN/GLOBULIN RATIO 0.9 (1.0-2.2); BILIRUBIN,TOTAL 0.5 mg/dL (0.2-1.0); CALCIUM 8.7 mg/dL (8.5-10.3); CREATININE 1.4 mg/dL (0.4-1.0); MAGNESIUM 2.2 mg/dL (1.7-2.8); PHOSPHORUS 5.4 mg/dL (2.5-4.6); TOTAL PROTEIN 6.9 g/dL (6.7-8.2)
[2018-07-03 05:27] LABS: HB2 TOTAL 11.7 g/dL; HEMOGLOBIN A1C 0.56 g/dL; HEMOGLOBIN A1C % 6.5 % (4.6-6.2)
[2018-07-03] MEDS: IPRATROPIUM/ALBUTEROL 3 ML NEB INH SCH (07:45)
[2018-07-03] MEDS ORDERED: NICOTINE 21 MG PATCH TOP SCH (09:00)
[2018-07-03 09:17] LABS: ABG BASE EXCESS 1.8 mmol/L (-2.0-3.0); ABG OXYGEN SATURATION 96 % (94-98); ABG PCO2 51 mmHg (34-45); ABG PH 7.36 (7.35-7.45); ABG PO2 88 mmHg (80-100); ABG TCO2 29.5 MMOL/L (21.0-29.0); ALLEN TEST POSITIVE
[2018-07-03] MEDS: POTASSIUM CHLORIDE 20 MEQ TABLET PO SCH (09:25)
[2018-07-03] MEDS: SACCHAROMYCES BOULARDII 250 MG CAPSULE PO SCH ×2 (09:30→17:08)
[2018-07-03] MEDS: AZITHROMYCIN INJ 500 MG in SODIUM CHLORIDE 0.9% 250 ML IV SCH (09:45)
[2018-07-03] MEDS: cefTRIAXone 2 GM in SODIUM CHLORIDE 0.9% MINIBAG 100 ML IV SCH (09:46)
[2018-07-03] MEDS: SODIUM CHLORIDE FLUSH 0.9% 10 ML SYRINGE IVP PRN ×2 (09:46→10:52)
[2018-07-03] MEDS: FAMOTIDINE 20 MG/50 ML 50 ML IV SCH (10:30)
[2018-07-03] MEDS: ENOXAPARIN 40 MG/0.4 ML SYRINGE SUBQ SCH (10:35)
[2018-07-03] MEDS: MIN OIL/DIMETHICON/COCONUT OIL 92 GM TUBE TOP PRN (10:46)
[2018-07-03] MEDS: levETIRAcetam 250 MG TABLET PO SCH ×2 (10:56→21:15)
[2018-07-03] MEDS: SUCRALFATE 1 GM/10 ML UDC PO SCH ×3 (10:59→21:15)
[2018-07-03] MEDS ORDERED: LISINOPRIL 20 MG TABLET PO SCH (11:00)
[2018-07-03] MEDS ORDERED: SODIUM CHLORIDE 0.9% 1,000 ML IV SCH (11:00)
--- NOTE | 2018-07-03 12:02 | PROVIDER PROGRESS NOTE ---
Assessment/Plan - Problem List (1) Acute respiratory failure with hypercapnia Assessment/Plan: Patient presented with several days of increasing shortness of breath, coughing increasing lethargy and weakness. On presentation the patient was found to be hypercapnic with a PCO2 of 70 and pH of 7.23. The patient's hypercapnia was thought to likely be multifactorial as the patient did appear to have a COPD exacerbation, also had pulmonary edema, a loculated left pleural effusion and consolidation concerning for pneumonia. The patient was placed on BiPAP and admitted to ICU. Overnight the patient remained on BiPAP she was much more alert this am Repeat ABG shows PCO2 of 51 with pH of 7.36 which is much improved Will take patient off BiPAP this am and monitor May need to place patient back on BiPAP tonight therefore will keep her in ICU Plan: BiPAP prn IV antibiotics with ceftriaxone and azithromycin Supplemental oxygen DuoNeb's prn IV steroids (2) Loculated pleural effusion Conclusion/Plan: The patient has a loculated left pleural effusion as is noted on the CT of her chest. This appears most likely to be a parapneumonic effusion given her underl ashtyn consolidation and presentation with hypercapnic respiratory failure. We will treat the patient with IV antibiotics and BiPAP for now. Contacted surgery who recommends thoracentesis for removal of fluid by IR if needed. For now will continue treatment as above and monitor patients respiratory status to determine need for thoracentesis. Repeat CXR to monitor in the am (3) CAP (community acquired pneumonia) Conclusion/Plan: The patient presented with hypercapnic respiratory failure. She has been having increasing shortness of breath, increasing cough with sputum production and lethargy over the last few days. The patient's CT scan shows that she has consolidation in the left lower lobe. This is consistent with pneumonia which is likely contributing to her hypercapnic respiratory failure. The patient will be treated with IV ceftriaxone and azithromycin and will be continued on treatment for COPD exacerbation. The patient appears to have a parapneumonic effusion in the left lung. Plan: IV ceftriaxone and azithro day 2 IVFs Duonebs BiPAP as needed Thoracentesis if effusion persists Qualifiers: Laterality: left Lung location: lower lobe of lung Qualified Code(s): J18.1 - Lobar pneumonia, unspecified organism (4) COPD exacerbation Conclusion/Plan: The patient has a history of COPD secondary to tobacco abuse. The patient is very wheezy on examination and has hypercapnic respiratory failure requiring BiPAP. Off BiPAP this am Improving slowly Plan: Continue BiPAP Duo nebs [id number] and as needed IV Solu-Medrol 40 mg every 6 hours Supplemental oxygen IV azithromycin (5) Pulmonary edema Conclusion/Plan: Resolved Echo shows normal EF Will give IVFs as patient appears dry Qualifiers: Chronicity: acute Qualified Code(s): J81.0 - Acute pulmonary edema (6) UTI (urinary tract infection) Conclusion/Plan: The patient presented with acute respiratory failure and hypercapnia. The patient has been lethargic for the last 2-3 days along with having shortness of breath. The patient's urine analysis did reveal that she has a ongoing urinary tract infection. This may be partly why she has been lethargic for the last few days. Plan: IV ceftriaxone Urine cx growing E Coli with susceptibilities pending Qualifiers: Urinary tract infection type: acute cystitis (7) Thyroid nodule Conclusion/Plan: The patient was found to have a incidental thyroid nodule on CT of her thorax. The nodule measures 2.6 cm. Plan: Thyroid ultrasound as outpatient TSH normal Low T3 and T4 (8) Tobacco abuse Conclusion/Plan: The patient continues to smoke 1 pack/day. She likely has COPD. Patient counselled on need to quit smoking. We will place the patient on a nicotine patch while she is hospitalized. (9) Hypertension Conclusion/Plan: BP was elevated on presentation now it is low normal Will start patient on IVFs Will restart home PO BP meds Qualifiers: Hypertension type: essential hypertension Qualified Code(s): I10 - Essential (primary) hypertension (10) Diabetes Conclusion/Plan: The patient has a history of diabetes but does not appear to be on any medications at home. On presentation to the emergency department she is hyperglycemic with a blood glucose of 219. The patient is going to be on steroids for treatment of COPD therefore expect that she will continue to be increasingly hyperglycemic. BG is 188 this am Plan: Patient on Lantus 10 units nightly at home which is controlled Placed patient on sliding scale insulin hemoglobin A1c is 6.5 Check blood glucose before meals at bedtime Diabetic diet Qualifiers: Diabetes mellitus type: type 2 Diabetes mellitus intermediate card tender insulin use: without [facility] use Diabetes mellitus complication status: with hyperglycemia Qualified Code(s): E11.65 - Type 2 diabetes mellitus with hyperglycemia (11) Ovarian mass Conclusion/Plan: The patient has an ovarian mass for which she has been evaluated by oncology. The mass is 22 cm and she has an elevated CA 125 of 365. The recommendation was for her to have surgical removal of this mass however the patient's neurologist did not clear her for the procedure as he felt that there was too high risk of the patient developing another stroke. At this point the patient is not a surgical candidate. It appears that the patient discussed chemotherapy options with the oncologist but is also not a candidate for systemic chemotherapy. She was recommended for palliative care only. Plan: Consulted palliative care (12) History of CVA (cerebrovascular accident) Conclusion/Plan: The patient has a history of a CVA about 5 years ago from which she has severe left-sided weakness and is wheelchair bound. Plan: Patient will be continued on her home doses of aspirin, Plavix and Lipitor. 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 - Current Meds Current Meds: Current Medications Generic Name Dose Route Start Last Admin Trade Name Freq PRN Reason Stop Dose Admin Enoxaparin Sodium 40 mg 07/03/18 09:00 07/03/18 10:35 Lovenox SUBQ 40 mg DAILY DELMY Administration Azithromycin 500 mg/ Sodium 250 mls @ 250 mls/hr 07/03/18 09:00 07/03/18 10:54 Chloride IV Infused DAILY DELMY Infusion Ceftriaxone Sodium 2 gm/ 100 mls @ 200 mls/hr 07/03/18 09:00 07/03/18 10:16 Sodium Chloride IV Infused DAILY DELMY Infusion Famotidine 50 mls @ 100 mls/hr 07/02/18 21:00 07/03/18 11:06 Pepcid 20 Mg/50 Ml IV Infused DAILY DELMY Infusion Sodium Chloride 1,000 mls @ 83.333 mls/hr 07/03/18 11:00 07/03/18 10:58 Normal Saline 0.9% IV 07/03/18 22:59 83.333 mls/hr .Q12H DELMY Administration Insulin Aspart 1 - 5 unit 07/02/18 12:00 07/03/18 09:25 Novolog SUBQ Not Given 0800,1200,1700,2100 DELMY Protocol Insulin Glargine 10 unit 07/02/18 21:00 07/03/18 00:41 Lantus Solostar SUBQ 10 unit QPM DELMY Administration Insulin Human Regular 1 - 9 unit 07/03/18 00:00 07/03/18 06:12 Novolin R SUBQ 3 unit Q6HR DELMY Administration Protocol Levetiracetam 750 mg 07/03/18 10:30 07/03/18 10:56 Keppra PO 750 mg BID DELMY Administration Lisinopril 40 mg 07/03/18 11:00 07/03/18 11:01 Zestril PO Not Given DAILY DELMY Methylprednisolone 40 mg 07/02/18 12:00 07/03/18 06:12 Solu-Medrol (40mg Vial) IVP 40 mg Q6HR DELMY Administration Mineral Oil 1 applic 07/02/18 18:42 07/03/18 10:46 Cavilon TOP 1 applic PRN PRN Administration Skin Care Nicotine 1 patch 07/03/18 09:00 07/03/18 10:33 Nicoderm TOP 1 patch DAILY DELMY Administration Potassium Chloride 20 meq 07/03/18 08:00 07/03/18 09:25 K-Dur PO Not Given DAILYWM DELMY Saccharomyces Boulardii 250 mg 07/02/18 17:00 07/03/18 09:30 Florastor PO 250 mg BIDWM DELMY Administration Sodium Chloride 10 ml 07/02/18 17:00 07/03/18 10:37 Normal Saline Flush 0.9% IVP Not Given 0100,0900,1700 DELMY Sodium Chloride 10 ml 07/02/18 10:57 07/03/18 10:52 Normal Saline Flush 0.9% IVP 10 ml PRN PRN Administration NEEDED PER PROVIDER ORDERS Sucralfate 1 gm 07/03/18 11:00 07/03/18 10:59 Carafate PO 1 gm ACHS DELMY Administration - Lab Result Lab results reviewed: Yes Fish Bone Diagrams: 07/03/18 04:30 07/03/18 04:30 - Diagnostic Imaging Results Diagnostic Imaging Results: Final report reviewed - Additional Planning Condition/Complexity: Guarded My Orders: My Active Orders 07/02/18 10:57 Echo Transthoracic Complete [ECHO] Stat Acetaminophen [Tylenol] 650 mg PO Q4HR PRN Ipratropium/Albuterol [Duoneb] 3 ml INH RTQID PRN Ondansetron Inj [Zofran Inj] 4 mg IVP Q6HR PRN Prochlorperazine Inj [Compazine Inj] 10 mg IVP Q6HR PRN Promethazine Inj [Phenergan Inj] 25 mg IM Q6HR PRN Sodium Chloride Flush 0.9% [Normal Saline Flush 0.9%] 10 ml IVP PRN PRN 07/02/18 10:58 Activity Orders [RC] Routine CHF Class Post-Discharge [RC] .ONCE Daily Weight [RC] 0600 IO [RC] Q1HR Initiate Bowel Care Protocol [RC] QSHIFT Initiate ICU Electrolyte Prot. [RC] .protocol Initiate Line Care Protocol [RC] .protocol Initiate Personal Care Protoco [RC] .protocol Vital Signs [RC] Q1HR Code Status [OTHERS] Routine Condition of Patient [OTHERS] Routine DVT Prophylaxis [OTHERS] Routine 07/02/18 11:00 Alaniz Insertion [RC] Routine Oral Care - Nursing [RC] Routine Telemetry- [RC] Routine 07/02/18 11:03 Alaniz Insertion [RC] Routine 07/02/18 11:06 Blood Glucose Checks - Eating [RC] 0800,1200,1700,2100 Initiate Hypoglycemia Protocol [RC] .protocol 07/02/18 12:00 Insulin Aspart [NovoLOG] 1 - 5 unit SUBQ 0800,1200,1700,2100 methylPREDNISolone SUCCINATE [SOLU-Medrol (40MG VIAL)] 40 mg IVP Q6HR 07/02/18 17:00 Saccharomyces Boulardii [Florastor] 250 mg PO BIDWM Sodium Chloride Flush 0.9% [Normal Saline Flush 0.9%] 10 ml IVP 0100,0900,1700 07/02/18 18:13 Nebulizer/MDI Tx. [RC] QID 07/02/18 18:42 Min Oil/Dimeth/Coconut Oil Crm [Cavilon] 1 applic TOP PRN PRN 07/02/18 21:00 Famotidine 20 mg/50 ml [Pepcid 20 mg/50 ml] 50 ml IV DAILY Insulin Glargine [Lantus Solostar] 10 unit SUBQ QPM 07/02/18 Lunch Carb-controlled Diet [DIET] 07/03/18 00:00 Insulin Regular Human [NovoLIN R] 1 - 9 unit SUBQ Q6HR 07/03/18 08:00 Potassium Chloride [K-Dur] 20 meq PO DAILYWM 07/03/18 09:00 Azithromycin Inj [Zithromax Inj] 500 mg Sodium Chloride 0.9% [Normal Saline 0.9%] 250 ml IV DAILY Enoxaparin [Lovenox] 40 mg SUBQ DAILY Nicotine 21 mg Patch [Nicoderm] 1 patch TOP DAILY cefTRIAXone [Rocephin] 2 gm Sodium Chloride 0.9% Minibag [Normal Saline 0.9% Minibag] 100 ml IV DAILY 07/03/18 09:20 RT [Oxygen Therapy] [RC] .PRN 07/03/18 10:30 levETIRAcetam [Keppra] 750 mg PO BID 07/03/18 11:00 Lisinopril [Zestril] 40 mg PO DAILY Sodium Chloride 0.9% [Normal Saline 0.9%] 1,000 ml IV 83.333 mls/hr Sucralfate [Carafate] 1 gm PO ACHS 07/03/18 14:00 Gabapentin [Neurontin] 600 mg PO TID 07/03/18 21:00 Atorvastatin [Lipitor] 20 mg PO QPM Mirtazapine [Remeron] 15 mg PO QPM 07/04/18 05:00 BNP - B-NATRIURETIC PEPTIDE [IAI] DAILYLAB CBC - COMP BLD CT W/AUTO DIFF [HEME] DAILYLAB COMPREHENSIVE METABOLIC PANEL [CHEM] DAILYLAB MAGNESIUM [CHEM] DAILYLAB PHOSPHORUS [CHEM] DAILYLAB 07/04/18 08:00 Aspirin [Bassam] 325 mg PO DAILYWM 07/04/18 09:00 Clopidogrel [Plavix] 75 mg PO DAILY Oxybutynin [Ditropan] 2.5 mg PO DAILY amLODIPine [Norvasc] 10 mg PO DAILY 07/05/18 05:00 BNP - B-NATRIURETIC PEPTIDE [IAI] DAILYLAB CBC - COMP BLD CT W/AUTO DIFF [HEME] DAILYLAB COMPREHENSIVE METABOLIC PANEL [CHEM] DAILYLAB MAGNESIUM [CHEM] DAILYLAB PHOSPHORUS [CHEM] DAILYLAB 07/06/18 05:00 BNP - B-NATRIURETIC PEPTIDE [IAI] DAILYLAB CBC - COMP BLD CT W/AUTO DIFF [HEME] DAILYLAB COMPREHENSIVE METABOLIC PANEL [CHEM] DAILYLAB MAGNESIUM [CHEM] DAILYLAB PHOSPHORUS [CHEM] DAILYLAB 07/07/18 05:00 BNP - B-NATRIURETIC PEPTIDE [IAI] DAILYLAB CBC - COMP BLD CT W/AUTO DIFF [HEME] DAILYLAB COMPREHENSIVE METABOLIC PANEL [CHEM] DAILYLAB MAGNESIUM [CHEM] DAILYLAB PHOSPHORUS [CHEM] DAILYLAB 07/08/18 05:00 COMPREHENSIVE METABOLIC PANEL [CHEM] DAILYLAB Plan Discussed with:: Patient, Spouse Time Spent: 31-60 minutes Subjective - Subjective Patient Reports: Feeling Better, Cough (Improved), Shortness of Breath (Improved), Other (More alert and awake) Nursing Reports: No Complaints Objective Vital Signs: Vital Signs - 24 hr 07/02/18 07/02/18 07/02/18 12:20 13:00 13:39 Temperature 36.8 C Heart Rate Heart Rate [ 78 71 81 Monitoring electrodes] Respiratory 19 18 22 Rate Blood Pressure 95/80 111/77 101/66 [Left Brachial artery] O2 Saturation 99 99 99 07/02/18 07/02/18 07/02/18 14:00 15:00 16:00 Temperature 36.2 C L Heart Rate Heart Rate [ 85 76 78 Monitoring electrodes] Respiratory 26 H 21 23 Rate Blood Pressure 106/69 101/61 90/60 [Left Brachial artery] O2 Saturation 96 98 100 07/02/18 07/02/18 07/02/18 17:00 18:00 18:30 Temperature Heart Rate 74 Heart Rate [ 66 66 Monitoring electrodes] Respiratory 20 21 Rate Blood Pressure 84/57 L 80/52 L [Left Brachial artery] O2 Saturation 97 97 07/02/18 07/02/18 07/02/18 19:00 20:00 20:13 Temperature Heart Rate 62 Heart Rate [ 72 63 Monitoring electrodes] Respiratory 22 20 20 Rate Blood Pressure 122/74 82/54 L [Left Brachial artery] O2 Saturation 98 97 07/02/18 07/02/18 07/02/18 21:00 22:00 22:14 Temperature 36.4 C L Heart Rate 66 Heart Rate [ 70 61 Monitoring electrodes] Respiratory 19 18 Rate Blood Pressure 87/54 L 106/74 [Left Brachial artery] O2 Saturation 98 98 07/02/18 07/03/18 07/03/18 23:00 00:00 00:14 Temperature 36.7 C Heart Rate 63 Heart Rate [ 57 L 66 Monitoring electrodes] Respiratory 13 20 Rate Blood Pressure 118/79 94/63 [Left Brachial artery] O2 Saturation 97 97 07/03/18 07/03/18 07/03/18 01:00 02:00 02:08 Temperature Heart Rate 62 Heart Rate [ 62 62 Monitoring electrodes] Respiratory 20 20 Rate Blood Pressure 101/70 102/64 [Left Brachial artery] O2 Saturation 99 98 07/03/18 07/03/18 07/03/18 03:00 03:57 04:00 Temperature 36.8 C Heart Rate 67 Heart Rate [ 62 66 Monitoring electrodes] Respiratory 22 27 H Rate Blood Pressure 110/70 112/67 [Left Brachial artery] O2 Saturation 99 98 07/03/18 07/03/18 07/03/18 05:00 05:57 06:00 Temperature Heart Rate 59 L Heart Rate [ 58 L 67 Monitoring electrodes] Respiratory 20 25 H Rate Blood Pressure 95/58 L 112/73 [Left Brachial artery] O2 Saturation 98 100 07/03/18 07/03/18 07/03/18 07:45 08:00 08:45 Temperature 36.5 C Heart Rate 71 Heart Rate [ 67 66 Monitoring electrodes] Respiratory 23 19 23 Rate Blood Pressure 104/69 104/69 [Left Brachial artery] O2 Saturation 98 98 07/03/18 07/03/18 07/03/18 09:18 10:00 11:00 Temperature 36.8 C Heart Rate Heart Rate [ 69 88 71 Monitoring electrodes] Respiratory 12 28 H 26 H Rate Blood Pressure 91/62 94/64 [Left Brachial artery] O2 Saturation 96 98 99 Oxygen O2 Source Nasal cannula Oxygen Flow Rate 4 I&O (Last 24 Hrs): Intake and Output Totals x24h 07/01/18 07/02/18 07/03/18 23:59 23:59 23:59 Intake Total 300 1040 Output Total 391 302 Balance -91 738 General: Alert, Oriented x3, Cooperative, No acute distress, Other (Off BiPAP) HEENT: Atraumatic, PERRLA, EOMI, Other (Dry mucus membranes) Neck: Supple, No JVD, No thyromegaly, +2 carotid pulse wo bruit, No LAD Lymphatic: no adenopathy Neuro: Alert, Non Focal, CN 2-12 Grossly Intact, Oriented Times 3 Cardiovascular: Regular rate, Normal S1, Normal S2, No murmurs Respiratory: Chest non-tender, Wheezes (Improved), Rales (Bilateral lower lungs), Rhonchi (Left lung) Abdomen: Normal bowel sounds, Soft, No tenderness, No hepatospenomegaly Extremities: No clubbing, No cyanosis, Normal pulses, Other (Bilateral LE edema) Skin: No rashes, No breakdown - Results Results: Laboratory Results WBC 6.1 x10^3/uL (4.8-10.8) 07/03/18 04:30 RBC 3.93 10^6/uL (4.20-5.40) L 07/03/18 04:30 Hgb 11.4 g/dL (12.0-16.0) L 07/03/18 04:30 Hct 36.0 % (37.0-47.0) L 07/03/18 04:30 MCV 91.6 fL (81.0-99.0) 07/03/18 04:30 MCH 29.0 pg (27.0-31.0) 07/03/18 04:30 MCHC 31.6 g/dL (32.0-36.0) L 07/03/18 04:30 RDW 15.0 % (12.0-15.0) 07/03/18 04:30 Plt Count 258 10^3/uL (130-450) 07/03/18 04:30 MPV 7.9 fL (7.9-10.8) 07/03/18 04:30 Neut # (Auto) 5.5 10^3/uL (1.5-6.6) 07/03/18 04:30 Lymph # (Auto) 0.5 10^3/uL (1.5-3.5) L 07/03/18 04:30 [place] # (Auto) 0.1 10^3/uL (0.0-1.0) 07/03/18 04:30 Eos # (Auto) 0.0 10^3/uL (0.0-0.7) 07/03/18 04:30 Baso # (Auto) 0.0 10^3/uL (0.0-0.1) 07/03/18 04:30 Absolute Nucleated RBC 0.01 x10^3/uL 07/03/18 04:30 Nucleated RBC % 0.1 /100WBC 07/03/18 04:30 PT 12.9 secs (9.9-12.6) H 07/03/18 04:30 INR 1.1 (0.8-1.2) 07/03/18 04:30 Bld Gas Analysis Time 0845 07/03/18 08:45 Sample Site RIGHT RADIAL 07/03/18 08:45 ABG pH 7.36 (7.35-7.45) 07/03/18 08:45 ABG pCO2 51 mmHg (34-45) H 07/03/18 08:45 ABG pO2 88 mmHg (80-100) 07/03/18 08:45 ABG HCO3 28.0 mmol/L (22.0-26.0) H 07/03/18 08:45 ABG Total CO2 29.5 MMOL/L (21.0-29.0) H 07/03/18 08:45 ABG O2 Saturation 96 % (94-98) 07/03/18 08:45 ABG Base Excess 1.8 mmol/L (-2.0-3.0) 07/03/18 08:45 Navdeep Test POSITIVE 07/03/18 08:45 Respiration Rate 23 b/min 07/03/18 08:45 O2 Delivery Device BiPAP 07/03/18 08:45 O2 Liters/Min 4.00 LPM 07/02/18 09:25 Vent Mode SYNCHRONOUS/TIMES 07/03/18 08:45 FiO2 40.00 07/03/18 08:45 Tidal Volume 618 mL 07/03/18 08:45 Pressure Support Vent 8 cmH2O 07/03/18 08:45 EPAP 6 cmH2O 07/03/18 08:45 IPAP 14 cmH2O 07/03/18 08:45 Sodium 140 mmol/L (135-145) 07/03/18 04:30 Potassium 5.1 mmol/L (3.5-5.0) H 07/03/18 04:30 Chloride 103 mmol/L (101-111) 07/03/18 04:30 Carbon Dioxide 27 mmol/L (21-32) 07/03/18 04:30 Anion Gap 10.0 (6-13) 07/03/18 04:30 BUN 24 mg/dL (6-20) H 07/03/18 04:30 Creatinine 1.4 mg/dL (0.4-1.0) H 07/03/18 04:30 Estimated GFR (MDRD) 37 (>89) L 07/03/18 04:30 Glucose 200 mg/dL (70-100) H 07/03/18 04:30 Glycated Hemoglobin 6.5 % (4.6-6.2) H 07/03/18 04:30 Estim Average Glucose 140 (70-100) H 07/03/18 04:30 Lactic Acid 1.1 mmol/L (0.5-2.2) 07/02/18 09:35 Calcium 8.7 mg/dL (8.5-10.3) 07/03/18 04:30 Phosphorus 5.4 mg/dL (2.5-4.6) H 07/03/18 04:30 Magnesium 2.2 mg/dL (1.7-2.8) 07/03/18 04:30 Total Bilirubin 0.5 mg/dL (0.2-1.0) 07/03/18 04:30 AST 13 IU/L (10-42) 07/03/18 04:30 ALT 12 IU/L (10-60) 07/03/18 04:30 Alkaline Phosphatase 66 IU/L (42-121) 07/03/18 04:30 Troponin I < 0.04 ng/mL (<0.49) 07/02/18 20:45 B-Natriuretic Peptide 231 pg/mL (5-100) H 07/03/18 04:30 Total Protein 6.9 g/dL (6.7-8.2) 07/03/18 04:30 Albumin 3.3 g/dL (3.2-5.5) 07/03/18 04:30 Globulin 3.6 g/dL (2.1-4.2) 07/03/18 04:30 Albumin/Globulin Ratio 0.9 (1.0-2.2) L 07/03/18 04:30 Lipase 32 U/L (22-51) 07/02/18 09:35 TSH 1.12 uIU/mL (0.34-5.60) 07/03/18 04:30 Free T3 pg/mL 2.36 pg/mL (2.5-3.9) L 07/03/18 04:30 Total T3 0.47 ng/mL (0.87-1.78) L 07/03/18 04:30 Urine Color YELLOW 07/02/18 10:23 Urine Clarity CLOUDY (CLEAR) 07/02/18 10:23 Urine pH 5.0 PH (5.0-7.5) 07/02/18 10:23 Ur Specific [place] >=1.030 (1.002-1.030) H 07/02/18 10:23 Urine Protein 100 mg/dL (NEGATIVE) H 07/02/18 10:23 Urine Glucose (UA) NEGATIVE mg/dL (NEGATIVE) 07/02/18 10:23 Urine Ketones NEGATIVE mg/dL (NEGATIVE) 07/02/18 10:23 Urine Occult Blood SMALL (NEGATIVE) H 07/02/18 10:23 Urine Nitrite POSITIVE (NEGATIVE) H 07/02/18 10:23 Urine Bilirubin NEGATIVE (NEGATIVE) 07/02/18 10:23 Urine Urobilinogen 0.2 (NORMAL) E.U./dL (NORMAL) 07/02/18 10:23 Ur Leukocyte Esterase MODERATE (NEGATIVE) H 07/02/18 10:23 Urine RBC 0-5 /HPF (0-5) 07/02/18 10:23 Urine WBC >25 /HPF (0-5) H 07/02/18 10:23 Urine WBC Clumps PRESENT 07/02/18 10:23 Ur Squamous Epith Cells FEW Squamous (<= Few) 07/02/18 10:23 Urine Bacteria Moderate /HPF (None Seen) H 07/02/18 10:23 Ur Microscopic Review INDICATED 07/02/18 10:23 Urine Culture Comments INDICATED 07/02/18 10:23 Influenza A (Rapid) Negative (Negative) 07/02/18 13:30 Influenza B (Rapid) Negative (Negative) 07/02/18 13:30 ABX Reporting Has patient been on IV antibiotics over the past 48 hours?: No Current Medications - Current Medications Current Medications: Active Medications Generic Name Dose Route Start Last Admin Trade Name Freq PRN Reason Stop Dose Admin Acetaminophen 650 mg 07/02/18 10:57 Tylenol PO Q4HR PRN Pain 1 to 4 Albuterol/Ipratropium 3 ml 07/02/18 10:57 Duoneb INH RTQID PRN Wheezing Amlodipine Besylate 10 mg 07/04/18 09:00 Norvasc PO DAILY DELMY Aspirin 325 mg 07/04/18 08:00 Bassam PO DAILYWM DELMY Atorvastatin Calcium 20 mg 11/21/18 21:00 Lipitor PO QPM DELMY Clopidogrel Bisulfate 75 mg 07/04/18 09:00 Plavix PO DAILY DELMY Enoxaparin Sodium 40 mg 07/03/18 09:00 07/03/18 10:35 Lovenox SUBQ 40 mg DAILY DELMY Administration Gabapentin 600 mg 07/03/18 14:00 Neurontin PO TID DELMY Azithromycin 500 mg/ Sodium 250 mls @ 250 mls/hr 07/03/18 09:00 07/03/18 10:54 Chloride IV Infused DAILY DELMY Infusion Ceftriaxone Sodium 2 gm/ 100 mls @ 200 mls/hr 07/03/18 09:00 07/03/18 10:16 Sodium Chloride IV Infused DAILY DELMY Infusion Famotidine 50 mls @ 100 mls/hr 07/02/18 21:00 07/03/18 11:06 Pepcid 20 Mg/50 Ml IV Infused DAILY DELMY Infusion Sodium Chloride 1,000 mls @ 83.333 mls/hr 07/03/18 11:00 07/03/18 10:58 Normal Saline 0.9% IV 07/03/18 22:59 83.333 mls/hr .Q12H DELMY Administration Insulin Aspart 1 - 5 unit 07/02/18 12:00 07/03/18 09:25 Novolog SUBQ Not Given 0800,1200,1700,2100 [facility] Protocol Insulin Glargine 10 unit 07/02/18 21:00 07/03/18 00:41 Lantus Solostar SUBQ 10 unit QPM DELMY Administration Insulin Human Regular 1 - 9 unit 07/03/18 00:00 07/03/18 06:12 Novolin R SUBQ 3 unit Q6HR DELMY Administration Protocol Levetiracetam 750 mg 07/03/18 10:30 07/03/18 10:56 Keppra PO 750 mg BID DELMY Administration Lisinopril 40 mg 07/03/18 11:00 07/03/18 11:01 Zestril PO Not Given DAILY [facility] Methylprednisolone 40 mg 07/02/18 12:00 07/03/18 06:12 Solu-Medrol (40mg Vial) IVP 40 mg Q6HR DELMY Administration Mineral Oil 1 applic 07/02/18 18:42 07/03/18 10:46 Cavilon TOP 1 applic PRN PRN Administration Skin Care Mirtazapine 15 mg 07/03/18 21:00 Remeron PO QPM [facility] Nicotine 1 patch 07/03/18 09:00 07/03/18 10:33 Nicoderm TOP 1 patch DAILY DELMY Administration Ondansetron HCl 4 mg 07/02/18 10:57 Zofran Inj IVP Q6HR PRN Nausea / Vomiting Oxybutynin Chloride 2.5 mg 07/04/18 09:00 Ditropan PO DAILY [facility] Potassium Chloride 20 meq 07/03/18 08:00 07/03/18 09:25 K-Dur PO Not Given DAILYWM DELMY Prochlorperazine Edisylate 10 mg 07/02/18 10:57 Compazine Inj IVP Q6HR PRN Nausea / Vomiting Promethazine HCl 25 mg 07/02/18 10:57 Phenergan Inj IM Q6HR PRN Nausea / Vomiting Saccharomyces Boulardii 250 mg 07/02/18 17:00 07/03/18 09:30 Florastor PO 250 mg BIDWM DELMY Administration Sodium Chloride 10 ml 07/02/18 17:00 07/03/18 10:37 Normal Saline Flush 0.9% IVP Not Given 0100,0900,1700 DELMY Sodium Chloride 10 ml 07/02/18 10:57 07/03/18 10:52 Normal Saline Flush 0.9% IVP 10 ml PRN PRN Administration NEEDED PER PROVIDER ORDERS Sucralfate 1 gm 07/03/18 11:00 07/03/18 10:59 Carafate PO 1 gm ACHS [facility] Administration Aspirin [Aspirin EC] 325 mg PO DAILY 08/22/13 Clopidogrel [Plavix] 75 mg PO DAILY 08/22/13 Mirtazapine [Remeron] 15 mg PO QPM 08/22/13 Pantoprazole Sodium [Protonix] 40 mg PO QDAC 08/22/13 Sucralfate [Carafate] 1 gm PO ACHS 08/22/13 Fluticasone/Salmeterol [Advair 100-50 Diskus] 1 inh IH BID 07/02/18 Gabapentin [Neurontin] 600 mg PO TID 07/02/18 Insulin Glargine [Lantus Solostar] 10 unit SQ QPM 07/02/18 Lisinopril 20 mg PO BID 07/02/18 Oxybutynin [Ditropan] 2.5 mg PO DAILY 07/02/18 RX: Atorvastatin Calcium 20 mg PO QPM 07/02/18 Amlodipine Besylate 10 mg PO DAILY 07/03/18 RX: Albuterol Sulfate [Proair Hfa Inhaler] 2 puffs INH Q4H PRN 07/03/18 levETIRAcetam [Levetiracetam] 750 mg PO BID 07/03/18
[2018-07-03] MEDS: GABAPENTIN 300 MG CAPSULE PO SCH ×2 (14:15→21:15)
[2018-07-03] MEDS: IPRATROPIUM/ALBUTEROL 3 ML NEB INH PRN (18:16)
[2018-07-03] MEDS ORDERED: SODIUM CHLORIDE 0.9% 500 ML IV ONE (18:48)
[2018-07-03] MEDS ORDERED: INSULIN GLARGINE 300 UNIT/3 ML PEN SUBQ SCH (21:00)
[2018-07-03] MEDS: MIRTAZAPINE 15 MG TABLET PO SCH (21:15)
[2018-07-03] MEDS: ATORVASTATIN 10 MG TABLET PO SCH (21:15)
[2018-07-03] MEDS: ACETAMINOPHEN 325 MG TABLET PO PRN (23:32)
[2018-07-04] MEDS: methylPREDNISolone SUCCINATE 40 MG/ML VIAL IVP SCH ×5 (00:04→23:54)
[2018-07-04] MEDS ORDERED: NAPROXEN 250 MG TABLET PO PRN (02:05)
[2018-07-04 04:39] LABS: HGB - HEMOGLOBIN 11.4 g/dL (12.0-16.0); LYMPHOCYTES # (AUTO) 0.5 10^3/uL (1.5-3.5); LYMPHOCYTES % (AUTO) 4.8 %; MEAN CORPUSCULAR HEMOGLOBIN 29.2 pg (27.0-31.0); MEAN CORPUSCULAR HGB CONC 32.1 g/dL (32.0-36.0); MEAN CORPUSCULAR VOLUME 90.8 fL (81.0-99.0); MEAN PLATELET VOLUME 8.2 fL (7.9-10.8); MONOCYTES # (AUTO) 0.2 10^3/uL (0.0-1.0); MONOCYTES % (AUTO) 2.1 %; NEUTROPHILS # (AUTO) 9.7 10^3/uL (1.5-6.6); NEUTROPHILS % (AUTO) 93.1 %; PLT - PLATELET COUNT 277 10^3/uL (130-450); RED CELL DISTRIBUTION WIDTH 14.8 % (12.0-15.0); WHITE BLOOD COUNT 10.4 x10^3/uL (4.8-10.8)
[2018-07-04 04:52] LABS: ALBUMIN 3.1 g/dL (3.2-5.5); BILIRUBIN,TOTAL 0.4 mg/dL (0.2-1.0); CREATININE 1.5 mg/dL (0.4-1.0); MAGNESIUM 2.1 mg/dL (1.7-2.8); PHOSPHORUS 3.9 mg/dL (2.5-4.6); TOTAL PROTEIN 6.1 g/dL (6.7-8.2)
[2018-07-04] MEDS: LACTATED RINGERS 1,000 ML IV SCH ×2 (04:56→18:30)
[2018-07-04] MEDS: SODIUM CHLORIDE FLUSH 0.9% 10 ML SYRINGE IVP SCH ×4 (06:37→23:55)
[2018-07-04] MEDS: GABAPENTIN 300 MG CAPSULE PO SCH ×3 (06:38→20:41)
[2018-07-04] MEDS: IPRATROPIUM/ALBUTEROL 3 ML NEB INH PRN (07:54)
[2018-07-04] MEDS ORDERED: ASPIRIN 325 MG TABLET PO SCH (08:00)
[2018-07-04] MEDS: SUCRALFATE 1 GM/10 ML UDC PO SCH ×4 (08:06→20:42)
[2018-07-04] MEDS: INSULIN ASPART 300 UNIT/3 ML PEN SUBQ SCH ×4 (08:40→20:39)
[2018-07-04] MEDS ORDERED: CLOPIDOGREL 75 MG TABLET PO SCH (09:00)
[2018-07-04] MEDS: cefTRIAXone 2 GM in SODIUM CHLORIDE 0.9% MINIBAG 100 ML IV SCH (09:23)
[2018-07-04] MEDS: NICOTINE 14 MG PATCH TOP SCH (09:51)
[2018-07-04] MEDS: FAMOTIDINE 20 MG/50 ML 50 ML IV SCH (10:03)
[2018-07-04] MEDS: ENOXAPARIN 40 MG/0.4 ML SYRINGE SUBQ SCH (10:38)
[2018-07-04] MEDS: AZITHROMYCIN INJ 500 MG in SODIUM CHLORIDE 0.9% 250 ML IV SCH (10:57)
[2018-07-04] MEDS: levETIRAcetam 250 MG TABLET PO SCH ×2 (11:08→20:42)
[2018-07-04] MEDS: CLOPIDOGREL 75 MG TABLET PO SCH (11:11)
[2018-07-04] MEDS: amLODIPine 5 MG TABLET PO SCH (11:18)
[2018-07-04] MEDS: ASPIRIN EC 325 MG TABLET PO SCH (11:42)
[2018-07-04] MEDS: OXYBUTYNIN 5MG TABLET PO SCH (11:42)
[2018-07-04] MEDS: SODIUM CHLORIDE FLUSH 0.9% 10 ML SYRINGE IVP PRN (12:02)
[2018-07-04] MEDS: POTASSIUM CHLORIDE 20 MEQ TABLET PO SCH (12:22)
[2018-07-04] MEDS: SACCHAROMYCES BOULARDII 250 MG CAPSULE PO SCH ×2 (12:22→16:47)
--- NOTE | 2018-07-04 13:01 | XRAY Report ---
Reason: Monitor effusion and pneumonia Procedure Date: 07/04/2018 Accession Number: [id number] / [id number] Procedure: XR - Chest 1 View X-Ray CPT Code: 27002 FULL RESULT: EXAM: CHEST RADIOGRAPHY EXAM DATE: 07/04/2018 09:33 AM. CLINICAL HISTORY: Monitor effusion and pneumonia. COMPARISON: 07/02/2018 chest x-ray and CT. TECHNIQUE: 1 view. FINDINGS: Lungs/Pleura: Left greater than right pleural effusion with atelectasis versus consolidation greater at left lung base. Overall degree of pulmonary vascular distention, interstitial prominence and hazy airspace opacity decreased. No new consolidation. No pneumothorax. Mediastinum: Mild cardiomegaly with calcified atherosclerosis and valvular calcification. Other: None. IMPRESSION: 1. Decreased vascular, airspace and interstitial opacities bilaterally. 2. Persistent left greater than right pleural effusion and consolidation, not significantly changed. 3. Exam otherwise as above. RADIA
[2018-07-04 15:38] LABS: ABG PCO2 46 mmHg (34-45); ABG PO2 72 mmHg (80-100)
[2018-07-04 15:39] LABS: ABG BASE EXCESS 0.8 mmol/L (-2.0-3.0); ABG HCO3 26.4 mmol/L (22.0-26.0); ABG OXYGEN SATURATION 94 % (94-98); ABG TCO2 27.8 MMOL/L (21.0-29.0); ALLEN TEST POSITIVE
--- NOTE | 2018-07-04 16:58 | PROVIDER PROGRESS NOTE ---
Assessment/Plan - Problem List (1) Acute respiratory failure with hypercapnia Assessment/Plan: Patient continues to require BiPAP off and on. When taken off BiPAP patient seems to tolerate well for a few hours but with any kind of exertion like PT today she becomes tired out and requires BiPAP again. Patients ABGs look improved as PCO2 has improved from 70 down to 46 but she continued to be wheezy with respiratory distress today while on O2 alone therefore was placed back on BiPAP. Will need to continue to monitor in ICU with BiPAP as needed Plan: BiPAP prn IV antibiotics with ceftriaxone and azithromycin day 3 Supplemental oxygen DuoNeb's prn IV steroids Thoracentesis tomorrow as patient has persistent large left pleural effusion (2) Loculated pleural effusion Conclusion/Plan: The patient has a loculated left pleural effusion as is noted on the CT of her chest. This appears most likely to be a parapneumonic effusion given her underlying consolidation and presentation with hypercapnic respiratory failure. We will treat the patient with IV antibiotics and BiPAP for now. Contacted surgery who recommends thoracentesis for removal of fluid by IR if needed. CXR this morning shows persistent left lung pleural effusion Thoracentesis tomorrow will send fluid for analysis. (3) CAP (community acquired pneumonia) Conclusion/Plan: The patient presented with hypercapnic respiratory failure. She has been having increasing shortness of breath, increasing cough with sputum production and lethargy over the last few days. The patient's CT scan shows that she has consolidation in the left lower lobe. This is consistent with pneumonia which is likely contributing to her hypercapnic respiratory failure. The patient will be treated with IV ceftriaxone and azithromycin and will be continued on treatment for COPD exacerbation. The patient appears to have a parapneumonic effusion in the left lung. Guarded condition. Plan: IV ceftriaxone and azithro day 3 IVFs Duonebs BiPAP as needed Thoracentesis tomorrow Qualifiers: Laterality: left Lung location: lower lobe of lung Qualified Code(s): J18.1 - Lobar pneumonia, unspecified organism (4) COPD exacerbation Conclusion/Plan: The patient has a history of COPD secondary to tobacco abuse. The patient is very wheezy on examination and has hypercapnic respiratory failure requiring BiPAP. Off BiPAP this am but did not tolerate well and had to be placed back on BiPAP Improving very slowly Plan: Continue BiPAP prn Duo nebs as needed IV Solu-Medrol 40 mg every 6 hours Supplemental oxygen IV azithromycin (5) Pulmonary edema Conclusion/Plan: Resolved Echo shows normal EF Continue IVFs as patient appears dry Qualifiers: Chronicity: acute Qualified Code(s): J81.0 - Acute pulmonary edema (6) UTI (urinary tract infection) Conclusion/Plan: The patient presented with acute respiratory failure and hypercapnia. The patient has been lethargic for the last 2-3 days along with having shortness of breath. The patient's urine analysis did reveal that she has a ongoing urinary tract infection. This may be partly why she has been lethargic for the last few days. Plan: IV ceftriaxone day 3 Urine cx growing E Coli pansusceptible Qualifiers: Urinary tract infection type: acute cystitis (7) Thyroid nodule Conclusion/Plan: The patient was found to have a incidental thyroid nodule on CT of her thorax. The nodule measures 2.6 cm. Plan: Thyroid ultrasound as outpatient TSH normal Low T3 and T4 (8) Tobacco abuse Conclusion/Plan: The patient continues to smoke 1 pack/day. She likely has COPD. Patient counselled on need to quit smoking. We will place the patient on a nicotine patch while she is hospitalized. (9) Hypertension Conclusion/Plan: Stable Continue home meds Qualifiers: Hypertension type: essential hypertension Qualified Code(s): I10 - Essential (primary) hypertension (10) Diabetes Conclusion/Plan: The patient has a history of diabetes but does not appear to be on any medications at home. On presentation to the emergency department she is hyperglycemic with a blood glucose of 219. The patient is going to be on steroids for treatment of COPD therefore expect that she will continue to be increasingly hyperglycemic. 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 The mass is 22 cm and she has an elevated CA 125 of 365. The recommendation was for her to have surgical removal of this mass however the patient's neurologist did not clear her for the procedure as he felt that there was too high risk of the patient developing another stroke. At this point the patient is not a surgical candidate. It appears that the patient discussed chemotherapy options with the oncologist but is also not a candidate for systemic chemotherapy. She was recommended for palliative care only. Plan: Consulted palliative care (12) History of CVA (cerebrovascular accident) Conclusion/Plan: The patient has a history of a CVA about 5 years ago from which she has severe left-sided weakness and is wheelchair bound. Plan: Patient will be continued on her home doses of aspirin, Plavix and Lipitor. 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 - Current Meds Current Meds: Current Medications Generic Name Dose Route Start Last Admin Trade Name Freq PRN Reason Stop Dose Admin Acetaminophen 650 mg 07/02/18 10:57 07/03/18 23:32 Tylenol PO 650 mg Q4HR PRN Administration Pain 1 to 4 Albuterol/Ipratropium 3 ml 07/02/18 10:57 07/04/18 07:54 Duoneb INH 3 ml RTQID PRN Administration Wheezing Amlodipine Besylate 10 mg 07/04/18 09:00 07/04/18 11:18 Norvasc PO Not Given DAILY DELMY Aspirin 325 mg 07/04/18 09:00 07/04/18 11:42 Ecotrin PO 325 mg DAILY DELMY Administration Atorvastatin Calcium 20 mg 07/03/18 21:00 07/03/18 21:15 Lipitor PO 20 mg QPM DELMY Administration Clopidogrel Bisulfate 75 mg 07/04/18 09:00 07/04/18 11:11 Plavix PO 75 mg DAILY DELMY Administration Enoxaparin Sodium 40 mg 07/03/18 09:00 07/04/18 10:38 Lovenox SUBQ 40 mg DAILY DELMY Administration Gabapentin 600 mg 07/03/18 14:00 07/04/18 14:38 Neurontin PO 600 mg TID DELMY Administration Azithromycin 500 mg/ Sodium 250 mls @ 250 mls/hr 07/03/18 09:00 07/04/18 12:00 Chloride IV Infused DAILY DELMY Infusion Ceftriaxone Sodium 2 gm/ 100 mls @ 200 mls/hr 07/03/18 09:00 07/04/18 10:55 Sodium Chloride IV Infused DAILY DELMY Infusion Famotidine 50 mls @ 100 mls/hr 07/02/18 21:00 07/04/18 10:35 Pepcid 20 Mg/50 Ml IV Infused DAILY DELMY Infusion Lactated Ringer's 1,000 mls @ 83.333 mls/hr 07/04/18 03:00 07/04/18 04:56 Lr IV 83.333 mls/hr .Q12H DELMY Administration Insulin Glargine 10 unit 07/02/18 21:00 07/03/18 21:16 Lantus Solostar SUBQ 10 unit QPM DELMY Administration Levetiracetam 750 mg 07/03/18 10:30 07/04/18 11:08 Keppra PO 750 mg BID DELMY Administration Methylprednisolone 40 mg 07/02/18 12:00 07/04/18 12:14 Solu-Medrol (40mg Vial) IVP 40 mg Q6HR DELMY Administration Mineral Oil 1 applic 07/02/18 18:42 07/03/18 10:46 Cavilon TOP 1 applic PRN PRN Administration Skin Care Mirtazapine 15 mg 07/03/18 21:00 07/03/18 21:15 Remeron PO 15 mg QPM DELMY Administration Nicotine 1 patch 07/04/18 09:00 07/04/18 09:51 Nicoderm TOP 1 patch DAILY DELMY Administration Oxybutynin Chloride 2.5 mg 07/04/18 09:00 07/04/18 11:42 Ditropan PO 2.5 mg DAILY DELMY Administration Potassium Chloride 20 meq 07/03/18 08:00 07/04/18 12:22 K-Dur PO 20 meq DAILYWM DELMY Administration Saccharomyces Boulardii 250 mg 07/02/18 17:00 07/04/18 16:47 Florastor PO 250 mg BIDWM DELMY Administration Sodium Chloride 10 ml 07/02/18 17:00 07/04/18 09:54 Normal Saline Flush 0.9% IVP 10 ml 0100,0900,1700 DELMY Administration Sodium Chloride 10 ml 07/02/18 10:57 07/04/18 12:02 Normal Saline Flush 0.9% IVP 10 ml PRN PRN Administration NEEDED PER PROVIDER ORDERS Sucralfate 1 gm 07/03/18 11:00 07/04/18 16:47 Carafate PO 1 gm ACHS DELMY Administration - Lab Result Lab results reviewed: Yes Fish Bone Diagrams: 07/04/18 04:10 07/04/18 04:10 - Diagnostic Imaging Results Diagnostic Imaging Results: Final report reviewed - Additional Planning Condition/Complexity: Guarded My Orders: My Active Orders 07/03/18 21:00 Atorvastatin [Lipitor] 20 mg PO QPM Mirtazapine [Remeron] 15 mg PO QPM 07/04/18 01:00 Evaluate and Treat PT [PT] Routine 07/04/18 09:00 Aspirin EC [Ecotrin] 325 mg PO DAILY Clopidogrel [Plavix] 75 mg PO DAILY Oxybutynin [Ditropan] 2.5 mg PO DAILY amLODIPine [Norvasc] 10 mg PO DAILY 07/04/18 17:00 Insulin Aspart [NovoLOG] 2 - 10 unit SUBQ 0800,1200,1700,2100 07/05/18 05:00 BNP - B-NATRIURETIC PEPTIDE [IAI] DAILYLAB CBC - COMP BLD CT W/AUTO DIFF [HEME] DAILYLAB COMPREHENSIVE METABOLIC PANEL [CHEM] DAILYLAB MAGNESIUM [CHEM] DAILYLAB PHOSPHORUS [CHEM] DAILYLAB 07/05/18 09:00 Thoracentesis Puncture [US] Routine CELL COUNT, BF [BF] Routine CUL, ANAEROBIC (QUEST) [REFLAB] Routine CUL,BODY FLUID(AEROBIC) [RM] Routine Miscellaneous Laboratory Order [LAB] Urgent 07/06/18 05:00 BNP - B-NATRIURETIC PEPTIDE [IAI] DAILYLAB CBC - COMP BLD CT W/AUTO DIFF [HEME] DAILYLAB COMPREHENSIVE METABOLIC PANEL [CHEM] DAILYLAB MAGNESIUM [CHEM] DAILYLAB PHOSPHORUS [CHEM] DAILYLAB 07/07/18 05:00 BNP - B-NATRIURETIC PEPTIDE [IAI] DAILYLAB CBC - COMP BLD CT W/AUTO DIFF [HEME] DAILYLAB COMPREHENSIVE METABOLIC PANEL [CHEM] DAILYLAB MAGNESIUM [CHEM] DAILYLAB PHOSPHORUS [CHEM] DAILYLAB 07/08/18 05:00 COMPREHENSIVE METABOLIC PANEL [CHEM] DAILYLAB Plan Discussed with:: Patient, Spouse Time Spent: Greater than 60 minutes Subjective - Subjective Patient Reports: Fatigue, Shortness of Breath (With minimal exertion), Other (Wheezing, still feels weak) Nursing Reports: No Complaints Objective Vital Signs: Vital Signs - 24 hr 07/03/18 07/03/18 07/03/18 17:00 17:15 18:00 Temperature 37.6 C H Heart Rate 69 Heart Rate [ Activity] Heart Rate [ 68 86 Monitoring electrodes] Respiratory 26 H 22 Rate Respiratory Rate [With Activity] Blood Pressure [Activity] Blood Pressure 108/55 L 87/54 L [Left Brachial artery] O2 Saturation 98 96 O2 Saturation [ With Activity] 07/03/18 07/03/18 07/03/18 18:10 18:16 20:00 Temperature 36.3 C L Heart Rate 72 70 Heart Rate [ Activity] Heart Rate [ 69 Monitoring electrodes] Respiratory 28 H 25 H Rate Respiratory Rate [With Activity] Blood Pressure [Activity] Blood Pressure 97/51 L [Left Brachial artery] O2 Saturation 97 O2 Saturation [ With Activity] 07/03/18 07/03/18 07/03/18 21:00 22:00 23:00 Temperature Heart Rate Heart Rate [ Activity] Heart Rate [ 67 65 81 Monitoring electrodes] Respiratory 25 H 24 16 Rate Respiratory Rate [With Activity] Blood Pressure [Activity] Blood Pressure 103/60 99/58 L 102/55 L [Left Brachial artery] O2 Saturation 96 97 96 O2 Saturation [ With Activity] 07/04/18 07/04/18 07/04/18 00:00 01:00 02:00 Temperature Heart Rate Heart Rate [ Activity] Heart Rate [ 63 60 67 Monitoring electrodes] Respiratory 26 H 20 22 Rate Respiratory Rate [With Activity] Blood Pressure [Activity] Blood Pressure 107/58 L 111/57 L 115/61 [Left Brachial artery] O2 Saturation 96 96 93 O2 Saturation [ With Activity] 07/04/18 07/04/18 07/04/18 03:00 04:00 05:00 Temperature Heart Rate Heart Rate [ Activity] Heart Rate [ 61 62 61 Monitoring electrodes] Respiratory 25 H 20 21 Rate Respiratory Rate [With Activity] Blood Pressure [Activity] Blood Pressure 94/53 L 102/46 L 95/48 L [Left Brachial artery] O2 Saturation 91 L 97 93 O2 Saturation [ With Activity] 07/04/18 07/04/18 07/04/18 06:00 06:58 07:58 Temperature 37.1 C Heart Rate 72 Heart Rate [ Activity] Heart Rate [ 64 6 L Monitoring electrodes] Respiratory 22 25 H 24 Rate Respiratory Rate [With Activity] Blood Pressure [Activity] Blood Pressure 88/52 L 114/54 L [Left Brachial artery] O2 Saturation 94 93 O2 Saturation [ With Activity] 07/04/18 07/04/18 07/04/18 08:00 09:00 10:00 Temperature 36.7 C Heart Rate Heart Rate [ Activity] Heart Rate [ 62 74 65 Monitoring electrodes] Respiratory 20 28 H 22 Rate Respiratory Rate [With Activity] Blood Pressure [Activity] Blood Pressure 114/75 104/60 103/56 L [Left Brachial artery] O2 Saturation 94 93 91 L O2 Saturation [ With Activity] 07/04/18 07/04/18 07/04/18 12:06 12:28 13:00 Temperature 37.4 C Heart Rate Heart Rate [ 92 Activity] Heart Rate [ 79 68 Monitoring electrodes] Respiratory 30 H 18 Rate Respiratory 22 Rate [With Activity] Blood Pressure 116/68 [Activity] Blood Pressure 104/70 107/56 L [Left Brachial artery] O2 Saturation 88 L 96 O2 Saturation [ 94 With Activity] 07/04/18 07/04/18 07/04/18 13:01 15:00 15:38 Temperature 36.8 C Heart Rate 75 65 Heart Rate [ Activity] Heart Rate [ 65 Monitoring electrodes] Respiratory 19 Rate Respiratory Rate [With Activity] Blood Pressure [Activity] Blood Pressure 124/66 [Left Brachial artery] O2 Saturation 98 O2 Saturation [ With Activity] 07/04/18 16:00 Temperature Heart Rate Heart Rate [ Activity] Heart Rate [ 65 Monitoring electrodes] Respiratory 25 H Rate Respiratory Rate [With Activity] Blood Pressure [Activity] Blood Pressure 119/54 L [Left Brachial artery] O2 Saturation 93 O2 Saturation [ With Activity] Oxygen O2 Source [With Activity] Nasal cannula O2 Source Nasal cannula Oxygen Flow Rate 4 I&O (Last 24 Hrs): Intake and Output Totals x24h 07/02/18 07/03/18 07/04/18 23:59 23:59 23:59 Intake Total 300 2501.108 1050 Output Total 020 975 2809 Balance -91 1938.108 37 General: Alert, Moderate distress (Tachypnic using accessormy muscles of breathing when off the BiPAP), Other (Morbidly obese, pleasant) HEENT: Atraumatic, PERRLA, EOMI, Mucous membr. moist/pink Neck: Supple, No JVD, No thyromegaly, +2 carotid pulse wo bruit, No LAD Lymphatic: no adenopathy Neuro: Alert, Focal Deficits (LEft sided weakness), Oriented Times 3 Cardiovascular: Regular rate, Normal S1, Normal S2, No murmurs Respiratory: Wheezes (Diffuse, worse in upper airway), Rales (Worse at left base), Rhonchi (LEft lung) Abdomen: Normal bowel sounds, Soft, Other (Tenderness and Left lower quadrant mass palpated) Extremities: No clubbing, No cyanosis, Normal pulses, Other (Bilateral LE edema) Skin: No rashes, No breakdown - Results Results: Laboratory Results WBC 10.4 x10^3/uL (4.8-10.8) 07/04/18 04:10 RBC 3.90 10^6/uL (4.20-5.40) L 07/04/18 04:10 Hgb 11.4 g/dL (12.0-16.0) L 07/04/18 04:10 Hct 35.4 % (37.0-47.0) L 07/04/18 04:10 MCV 90.8 fL (81.0-99.0) 07/04/18 04:10 MCH 29.2 pg (27.0-31.0) 07/04/18 04:10 MCHC 32.1 g/dL (32.0-36.0) 07/04/18 04:10 RDW 14.8 % (12.0-15.0) 07/04/18 04:10 Plt Count 277 10^3/uL (130-450) 07/04/18 04:10 MPV 8.2 fL (7.9-10.8) 07/04/18 04:10 Neut # (Auto) 9.7 10^3/uL (1.5-6.6) H 07/04/18 04:10 Lymph # (Auto) 0.5 10^3/uL (1.5-3.5) L 07/04/18 04:10 [place] # (Auto) 0.2 10^3/uL (0.0-1.0) 07/04/18 04:10 Eos # (Auto) 0.0 10^3/uL (0.0-0.7) 07/04/18 04:10 Baso # (Auto) 0.0 10^3/uL (0.0-0.1) 07/04/18 04:10 Absolute Nucleated RBC 0.00 x10^3/uL 07/04/18 04:10 Nucleated RBC % 0.0 /100WBC 07/04/18 04:10 PT 12.9 secs (9.9-12.6) H 07/03/18 04:30 INR 1.1 (0.8-1.2) 07/03/18 04:30 Bld Gas Analysis Time 1536 07/04/18 15:30 Sample Site RIGHT RADIAL 07/04/18 15:30 ABG pH 7.40 (7.35-7.45) 07/04/18 15:30 ABG pCO2 46 mmHg (34-45) H 07/04/18 15:30 ABG pO2 72 mmHg (80-100) L 07/04/18 15:30 ABG HCO3 26.4 mmol/L (22.0-26.0) H 07/04/18 15:30 ABG Total CO2 27.8 MMOL/L (21.0-29.0) 07/04/18 15:30 ABG O2 Saturation 94 % (94-98) 07/04/18 15:30 ABG Base Excess 0.8 mmol/L (-2.0-3.0) 07/04/18 15:30 Navdeep Test POSITIVE 07/04/18 15:30 Respiration Rate 23 b/min 07/03/18 08:45 O2 Delivery Device BiPAP 07/04/18 15:30 O2 Liters/Min 4.00 LPM 07/02/18 09:25 Vent Mode SYNCHRONOUS/TIMES 07/03/18 08:45 FiO2 35.00 07/04/18 15:30 Tidal Volume 618 mL 07/03/18 08:45 Pressure Support Vent 8 cmH2O 07/03/18 08:45 EPAP 5 cmH2O 07/04/18 15:30 IPAP 12 cmH2O 07/04/18 15:30 Sodium 137 mmol/L (135-145) 07/04/18 04:10 Potassium 4.7 mmol/L (3.5-5.0) 07/04/18 04:10 Chloride 103 mmol/L (101-111) 07/04/18 04:10 Carbon Dioxide 26 mmol/L (21-32) 07/04/18 04:10 Anion Gap 8.0 (6-13) 07/04/18 04:10 BUN 36 mg/dL (6-20) H 07/04/18 04:10 Creatinine 1.5 mg/dL (0.4-1.0) H 07/04/18 04:10 Estimated GFR (MDRD) 34 (>89) L 07/04/18 04:10 Glucose 229 mg/dL (70-100) H 07/04/18 04:10 POC Whole Bld Glucose 305 mg/dL (70 - 100) H 07/04/18 11:55 Glycated Hemoglobin 6.5 % (4.6-6.2) H 07/03/18 04:30 Estim Average Glucose 140 (70-100) H 07/03/18 04:30 Lactic Acid 1.1 mmol/L (0.5-2.2) 07/02/18 09:35 Calcium 8.0 mg/dL (8.5-10.3) L 07/04/18 04:10 Phosphorus 3.9 mg/dL (2.5-4.6) 07/04/18 04:10 Magnesium 2.1 mg/dL (1.7-2.8) 07/04/18 04:10 Total Bilirubin 0.4 mg/dL (0.2-1.0) 07/04/18 04:10 AST 25 IU/L (10-42) 07/04/18 04:10 ALT 22 IU/L (10-60) 07/04/18 04:10 Alkaline Phosphatase 59 IU/L (42-121) 07/04/18 04:10 Troponin I < 0.04 ng/mL (<0.49) 07/02/18 20:45 B-Natriuretic Peptide 163 pg/mL (5-100) H 07/04/18 04:10 Total Protein 6.1 g/dL (6.7-8.2) L 07/04/18 04:10 Albumin 3.1 g/dL (3.2-5.5) L 07/04/18 04:10 Globulin 3.0 g/dL (2.1-4.2) 07/04/18 04:10 Albumin/Globulin Ratio 1.0 (1.0-2.2) 07/04/18 04:10 Lipase 32 U/L (22-51) 07/02/18 09:35 TSH 1.12 uIU/mL (0.34-5.60) 07/03/18 04:30 Free T3 pg/mL 2.36 pg/mL (2.5-3.9) L 07/03/18 04:30 Total T3 0.47 ng/mL (0.87-1.78) L 07/03/18 04:30 Urine Color YELLOW 07/02/18 10:23 Urine Clarity CLOUDY (CLEAR) 07/02/18 10:23 Urine pH 5.0 PH (5.0-7.5) 07/02/18 10:23 Ur Specific [place] >=1.030 (1.002-1.030) H 07/02/18 10:23 Urine Protein 100 mg/dL (NEGATIVE) H 07/02/18 10:23 Urine Glucose (UA) NEGATIVE mg/dL (NEGATIVE) 07/02/18 10:23 Urine Ketones NEGATIVE mg/dL (NEGATIVE) 07/02/18 10:23 Urine Occult Blood SMALL (NEGATIVE) H 07/02/18 10:23 Urine Nitrite POSITIVE (NEGATIVE) H 07/02/18 10:23 Urine Bilirubin NEGATIVE (NEGATIVE) 07/02/18 10:23 Urine Urobilinogen 0.2 (NORMAL) E.U./dL (NORMAL) 07/02/18 10:23 Ur Leukocyte Esterase MODERATE (NEGATIVE) H 07/02/18 10:23 Urine RBC 0-5 /HPF (0-5) 07/02/18 10:23 Urine WBC >25 /HPF (0-5) H 07/02/18 10:23 Urine WBC Clumps PRESENT 07/02/18 10:23 Ur Squamous Epith Cells FEW Squamous (<= Few) 07/02/18 10:23 Urine Bacteria Moderate /HPF (None Seen) H 07/02/18 10:23 Ur Microscopic Review INDICATED 07/02/18 10:23 Urine Culture Comments INDICATED 07/02/18 10:23 Influenza A (Rapid) Negative (Negative) 07/02/18 13:30 Influenza B (Rapid) Negative (Negative) 07/02/18 13:30 ABX Reporting Has patient been on IV antibiotics over the past 48 hours?: Yes Current Medications - Current Medications Current Medications: Active Medications Generic Name Dose Route Start Last Admin Trade Name Freq PRN Reason Stop Dose Admin Acetaminophen 650 mg 07/02/18 10:57 07/03/18 23:32 Tylenol PO 650 mg Q4HR PRN Administration Pain 1 to 4 Albuterol/Ipratropium 3 ml 07/02/18 10:57 07/04/18 07:54 Duoneb INH 3 ml RTQID PRN Administration Wheezing Amlodipine Besylate 10 mg 07/04/18 09:00 07/04/18 11:18 Norvasc PO Not Given DAILY DELMY Aspirin 325 mg 07/04/18 09:00 07/04/18 11:42 Ecotrin PO 325 mg DAILY DELMY Administration Atorvastatin Calcium 20 mg 07/03/18 21:00 07/03/18 21:15 Lipitor PO 20 mg QPM DELMY Administration Clopidogrel Bisulfate 75 mg 07/04/18 09:00 07/04/18 11:11 Plavix PO 75 mg DAILY DELMY Administration Enoxaparin Sodium 40 mg 07/03/18 09:00 07/04/18 10:38 Lovenox SUBQ 40 mg DAILY DELMY Administration Gabapentin 600 mg 07/03/18 14:00 07/04/18 14:38 Neurontin PO 600 mg TID DELMY Administration Azithromycin 500 mg/ Sodium 250 mls @ 250 mls/hr 07/03/18 09:00 07/04/18 12:00 Chloride IV Infused DAILY DELMY Infusion Ceftriaxone Sodium 2 gm/ 100 mls @ 200 mls/hr 07/03/18 09:00 07/04/18 10:55 Sodium Chloride IV Infused DAILY DELMY Infusion Famotidine 50 mls @ 100 mls/hr 07/02/18 21:00 07/04/18 10:35 Pepcid 20 Mg/50 Ml IV Infused DAILY DELMY Infusion Lactated Ringer's 1,000 mls @ 83.333 mls/hr 07/04/18 03:00 07/04/18 04:56 Lr IV 83.333 mls/hr .Q12H DELMY Administration Insulin Aspart 2 - 10 unit 07/04/18 17:00 Novolog SUBQ 0800,1200,1700,2100 DELMY Protocol Insulin Glargine 15 unit 07/04/18 21:00 Lantus Solostar SUBQ QPM DELMY Levetiracetam 750 mg 07/03/18 10:30 07/04/18 11:08 Keppra PO 750 mg BID DELMY Administration Methylprednisolone 40 mg 07/02/18 12:00 07/04/18 12:14 Solu-Medrol (40mg Vial) IVP 40 mg Q6HR DELMY Administration Mineral Oil 1 applic 07/02/18 18:42 07/03/18 10:46 Cavilon TOP 1 applic PRN PRN Administration Skin Care Mirtazapine 15 mg 07/03/18 21:00 07/03/18 21:15 Remeron PO 15 mg QPM DELMY Administration Naproxen 250 mg 07/04/18 02:05 Naprosyn PO TID PRN PAIN Nicotine 1 patch 07/04/18 09:00 07/04/18 09:51 Nicoderm TOP 1 patch DAILY DELMY Administration Ondansetron HCl 4 mg 07/02/18 10:57 Zofran Inj IVP Q6HR PRN Nausea / Vomiting Oxybutynin Chloride 2.5 mg 07/04/18 09:00 07/04/18 11:42 Ditropan PO 2.5 mg DAILY DELMY Administration Potassium Chloride 20 meq 07/03/18 08:00 07/04/18 12:22 K-Dur PO 20 meq DAILYWM DELMY Administration Prochlorperazine Edisylate 10 mg 07/02/18 10:57 Compazine Inj IVP Q6HR PRN Nausea / Vomiting Promethazine HCl 25 mg 07/02/18 10:57 Phenergan Inj IM Q6HR PRN Nausea / Vomiting Saccharomyces Boulardii 250 mg 07/02/18 17:00 07/04/18 16:47 Florastor PO 250 mg BIDWM DELMY Administration Sodium Chloride 10 ml 07/02/18 17:00 07/04/18 16:49 Normal Saline Flush 0.9% IVP 10 ml 0100,0900,1700 DELMY Administration Sodium Chloride 10 ml 07/02/18 10:57 07/04/18 12:02 Normal Saline Flush 0.9% IVP 10 ml PRN PRN Administration NEEDED PER PROVIDER ORDERS Sucralfate 1 gm 07/03/18 11:00 07/04/18 16:47 Carafate PO 1 gm ACHS DELMY Administration Aspirin [Aspirin EC] 325 mg PO DAILY 08/22/13 Clopidogrel [Plavix] 75 mg PO DAILY 08/22/13 Mirtazapine [Remeron] 15 mg PO QPM 08/22/13 Pantoprazole Sodium [Protonix] 40 mg PO QDAC 08/22/13 Sucralfate [Carafate] 1 gm PO ACHS 08/22/13 Atorvastatin Calcium 20 mg PO QPM 07/02/18 Fluticasone/Salmeterol [Advair 100-50 Diskus] 1 inh IH BID 07/02/18 Gabapentin [Neurontin] 600 mg PO TID 07/02/18 Insulin Glargine [Lantus Solostar] 10 unit SQ QPM 07/02/18 Lisinopril 20 mg PO BID 07/02/18 Oxybutynin [Ditropan] 2.5 mg PO DAILY 07/02/18 Albuterol Sulfate [Proair Hfa Inhaler] 2 puffs INH Q4H PRN 07/03/18 Amlodipine Besylate 10 mg PO DAILY 07/03/18 levETIRAcetam [Levetiracetam] 750 mg PO BID 07/03/18
[2018-07-04] MEDS: INSULIN GLARGINE 300 UNIT/3 ML PEN SUBQ SCH (20:40)
[2018-07-04] MEDS: ATORVASTATIN 10 MG TABLET PO SCH (20:41)
[2018-07-04] MEDS: MIRTAZAPINE 15 MG TABLET PO SCH (20:42)
[2018-07-05 05:02] LABS: BASOPHILS % (AUTO) 0.2 %; HGB - HEMOGLOBIN 11.4 g/dL (12.0-16.0); LYMPHOCYTES # (AUTO) 0.4 10^3/uL (1.5-3.5); LYMPHOCYTES % (AUTO) 5.6 %; MEAN CORPUSCULAR HEMOGLOBIN 29.2 pg (27.0-31.0); MEAN CORPUSCULAR HGB CONC 32.4 g/dL (32.0-36.0); MEAN CORPUSCULAR VOLUME 90.1 fL (81.0-99.0); MEAN PLATELET VOLUME 8.4 fL (7.9-10.8); MONOCYTES # (AUTO) 0.2 10^3/uL (0.0-1.0); MONOCYTES % (AUTO) 3.2 %; NEUTROPHILS # (AUTO) 6.7 10^3/uL (1.5-6.6); PLT - PLATELET COUNT 258 10^3/uL (130-450); RED BLOOD COUNT 3.92 10^6/uL (4.20-5.40); RED CELL DISTRIBUTION WIDTH 15.1 % (12.0-15.0); WHITE BLOOD COUNT 7.3 x10^3/uL (4.8-10.8)
[2018-07-05 05:08] LABS: ALBUMIN 2.9 g/dL (3.2-5.5); ALBUMIN/GLOBULIN RATIO 0.9 (1.0-2.2); BILIRUBIN,TOTAL 0.3 mg/dL (0.2-1.0); CALCIUM 7.8 mg/dL (8.5-10.3); CREATININE 1.4 mg/dL (0.4-1.0); MAGNESIUM 2.3 mg/dL (1.7-2.8); PHOSPHORUS 3.2 mg/dL (2.5-4.6); TOTAL PROTEIN 6.2 g/dL (6.7-8.2)
[2018-07-05] MEDS: GABAPENTIN 300 MG CAPSULE PO SCH ×3 (06:11→21:12)
[2018-07-05] MEDS: methylPREDNISolone SUCCINATE 40 MG/ML VIAL IVP SCH ×3 (06:11→21:16)
[2018-07-05] MEDS: SUCRALFATE 1 GM/10 ML UDC PO SCH ×4 (06:11→21:15)
[2018-07-05] MEDS: LACTATED RINGERS 1,000 ML IV SCH (06:23)
--- NOTE | 2018-07-05 09:21 | XRAY Report ---
Reason: Eval size of pleural effusion Procedure Date: 07/05/2018 Accession Number: [id number] / [id number] Procedure: XR - Chest 1 View X-Ray CPT Code: 83684 FULL RESULT: EXAM: CHEST RADIOGRAPHY EXAM DATE: 07/05/2018 09:03 AM. CLINICAL HISTORY: Eval size of pleural effusion. COMPARISON: CHEST 1 VIEW 07/04/2018 9:22 AM. TECHNIQUE: Upright AP view. FINDINGS: Lungs/Pleura: Small left pleural effusion, as before. Mild left basilar airspace opacity as before. Right lung essentially clear. No interstitial abnormality. No pneumothorax. Mediastinum: Within exam limitations, the cardiomediastinal contour is normal. Mitral annulus calcification. Moderate aortic arch calcification. Other: None. IMPRESSION: 1. Small left pleural effusion without significant change. 2. Mild left basilar airspace consolidation, as before. RADIA
[2018-07-05] MEDS: INSULIN ASPART 300 UNIT/3 ML PEN SUBQ SCH ×4 (09:23→21:07)
[2018-07-05] MEDS: ASPIRIN EC 325 MG TABLET PO SCH (09:28)
[2018-07-05] MEDS: OXYBUTYNIN 5MG TABLET PO SCH (09:28)
[2018-07-05] MEDS: SACCHAROMYCES BOULARDII 250 MG CAPSULE PO SCH ×2 (09:29→17:27)
[2018-07-05] MEDS: CLOPIDOGREL 75 MG TABLET PO SCH (09:29)
[2018-07-05] MEDS: levETIRAcetam 250 MG TABLET PO SCH ×2 (09:31→21:11)
[2018-07-05] MEDS: amLODIPine 5 MG TABLET PO SCH (09:31)
[2018-07-05] MEDS: AZITHROMYCIN INJ 500 MG in SODIUM CHLORIDE 0.9% 250 ML IV SCH (09:32)
[2018-07-05] MEDS: POTASSIUM CHLORIDE 20 MEQ TABLET PO SCH (09:32)
[2018-07-05] MEDS: MIN OIL/DIMETHICON/COCONUT OIL 92 GM TUBE TOP PRN ×2 (09:57→21:08)
[2018-07-05] MEDS: cefTRIAXone 2 GM in SODIUM CHLORIDE 0.9% MINIBAG 100 ML IV SCH (09:57)
[2018-07-05] MEDS: ENOXAPARIN 40 MG/0.4 ML SYRINGE SUBQ SCH (09:57)
[2018-07-05] MEDS: NICOTINE 14 MG PATCH TOP SCH (10:43)
[2018-07-05] MEDS: SODIUM CHLORIDE FLUSH 0.9% 10 ML SYRINGE IVP PRN ×3 (10:46→12:53)
[2018-07-05] MEDS: POLYETHYLENE GLYCOL 3350 17 GM PACKET PO SCH (10:46)
[2018-07-05] MEDS: FAMOTIDINE 20 MG/50 ML 50 ML IV SCH (11:23)
[2018-07-05] MEDS: SODIUM CHLORIDE FLUSH 0.9% 10 ML SYRINGE IVP SCH ×3 (11:29→21:12)
--- NOTE | 2018-07-05 11:35 | XRAY Report ---
Reason: post-thoracentesis Procedure Date: 07/05/2018 Accession Number: [id number] / [id number] Procedure: XR - Chest 1 View X-Ray CPT Code: 78950 FULL RESULT: EXAM: CHEST RADIOGRAPHY EXAM DATE: 07/05/2018 11:15 AM. CLINICAL HISTORY: Post-thoracentesis. COMPARISON: Chest 1 view 07/05/2018 8:51 AM. TECHNIQUE: 1 view. FINDINGS: Lungs/Pleura: There are bibasilar opacities left greater than right with bilateral small pleural effusions, greater on the right, where it may be loculated. The left pleural effusion is decreased. No pneumothorax is detected. Mediastinum: Cardiomediastinal silhouette is stable with persistent aortic arch calcifications. Other: None. IMPRESSION: No pneumothorax. RADIA
[2018-07-05 11:46] LABS: CC,BF RBC 31952 /mm^3
[2018-07-05] MEDS: guaiFENesin 600 MG TABLET PO SCH ×2 (11:46→21:15)
--- NOTE | 2018-07-05 11:54 | Ultrasound Report ---
Reason: Left lung effusion loculated, SOB and pneumonia Procedure Date: 07/05/2018 Accession Number: [id number] / [id number] Procedure: US - Thoracentesis Puncture CPT Code: FULL RESULT: EXAM: ULTRASOUND-GUIDED THORACENTESIS EXAM DATE: 07/05/2018 09:39 AM. CLINICAL HISTORY: Left lung effusion loculated, shortness of breath pneumonia. COMPARISON: 07/05/2018 11:41 AM. TECHNIQUE: Risks, benefits and alternatives to the procedure were discussed with the patient. All questions answered. Written and verbal consent obtained. Patient was placed in the sitting position and the skin overlying the effusion marked with sonographic guidance. The skin was sterilely prepped and draped, and 1% buffered lidocaine was used for local anesthesia. A 17-gauge Yueh was advanced into the pleural space and fluid aspirated. Upon completion, the catheter was removed. FINDINGS: A total of 650 mL of fluid was removed without immediate complication. Patient tolerated procedure well. A sample was submitted to pathology for analysis. IMPRESSION: Ultrasound-guided thoracentesis without immediate complications. RADIA
[2018-07-05 13:19] LABS: BF SOURCE PLEURAL; LYMPHOCYTES %,BODY FLUID 78; MESOTHELIAL %, BF 6 %
[2018-07-05 13:20] LABS: BF COLOR BLOODY
--- NOTE | 2018-07-05 13:38 | XRAY Report ---
Reason: post=thoracentesis Procedure Date: 07/05/2018 Accession Number: [id number] / [id number] Procedure: XR - Chest 1 View X-Ray CPT Code: 50052 FULL RESULT: EXAM: CHEST RADIOGRAPHY EXAM DATE: 07/05/2018 01:26 PM. CLINICAL HISTORY: Post-thoracentesis. COMPARISON: Prior radiograph obtained today. TECHNIQUE: 1 view. FINDINGS: Lungs/Pleura: Bilateral small pleural effusions are again seen, left is mildly increased compared to 2 hours ago. Lung zelaya are unchanged. Mediastinum: The cardiomediastinal silhouette with aortic arch calcification and mild cardiomegaly is unchanged. Other: None. IMPRESSION: Stable radiograph without pneumothorax. RADIA
--- NOTE | 2018-07-05 14:07 | PROVIDER PROGRESS NOTE ---
Assessment/Plan - Problem List (1) CAP (community acquired pneumonia) Qualifiers: Laterality: left Lung location: lower lobe of lung Qualified Code(s): J18.1 - Lobar pneumonia, unspecified organism Assessment/Plan: Pt on iv antibiotics. Will transition to po antibiotics tomorrow and plan a 7 day course. Also, Mucinex ordered for persistent wet cough. (2) Pleural effusion Assessment/Plan: Pt underwent successful thoracenresis, 700 cc of dark fluid removed and sent for studies, CXR showed no pneumothorax. Her resp status improved. Await cultures and protein analysis of pleural fluid. Will cancel BIPAP and decrease steroids. (3) History of CVA (cerebrovascular accident) Assessment/Plan: Pt has longstanding L sided weakness from a remote stroke. Pt did recommend physical therapy for strengthening the L side as much as can be dose, therefore will place a Home Health referral for Home RN, PT and OT. (4) Ovarian mass Assessment/Plan: Pt has pain in LLQ when tries to stand (plus old stroke with L leg weakness) make for difficult movement. (5) CKD (chronic kidney disease) stage 3, GFR 30-59 ml/min Assessment/Plan: Monitor BMP daily and stop daily K replacement. (6) Acute exacerbation of COPD with asthma Assessment/Plan: Resolved. Will decrease iv steroid frequency. Will plan DCh with Medrol dose Matt, for a tapering down schedule (possible DCh tomorrow). (7) CHF exacerbation Assessment/Plan: Resolved and Pt off diuretic. - Current Meds Current Meds: Current Medications Generic Name Dose Route Start Last Admin Trade Name Freq PRN Reason Stop Dose Admin Acetaminophen 650 mg 07/02/18 10:57 07/03/18 23:32 Tylenol PO 650 mg Q4HR PRN Administration Pain 1 to 4 Albuterol/Ipratropium 3 ml 07/02/18 10:57 07/04/18 07:54 Duoneb INH 3 ml RTQID PRN Administration Wheezing Amlodipine Besylate 10 mg 07/04/18 09:00 07/05/18 09:31 Norvasc PO 10 mg DAILY DELMY Administration Aspirin 325 mg 07/04/18 09:00 07/05/18 09:28 Ecotrin PO 325 mg DAILY DELMY Administration Atorvastatin Calcium 20 mg 07/03/18 21:00 07/04/18 20:41 Lipitor PO 20 mg QPM DELMY Administration Clopidogrel Bisulfate 75 mg 07/04/18 09:00 07/05/18 09:29 Plavix PO 75 mg DAILY DELMY Administration Enoxaparin Sodium 40 mg 07/03/18 09:00 07/05/18 09:57 Lovenox SUBQ 40 mg DAILY DELMY Administration Gabapentin 600 mg 07/03/18 14:00 07/05/18 13:46 Neurontin PO 600 mg TID DELMY Administration Guaifenesin 600 mg 07/05/18 11:15 07/05/18 11:46 Mucinex PO 600 mg BID DELMY Administration Azithromycin 500 mg/ Sodium 250 mls @ 250 mls/hr 07/03/18 09:00 07/05/18 11:22 Chloride IV Infused DAILY DELMY Infusion Ceftriaxone Sodium 2 gm/ 100 mls @ 200 mls/hr 07/03/18 09:00 07/05/18 11:22 Sodium Chloride IV Infused DAILY DELMY Infusion Famotidine 50 mls @ 100 mls/hr 07/02/18 21:00 07/05/18 11:54 Pepcid 20 Mg/50 Ml IV Infused DAILY DELMY Infusion Insulin Aspart 3 - 11 unit 07/05/18 12:00 07/05/18 12:53 Novolog SUBQ 9 unit 0800,1200,1700,2100 DELMY Administration Protocol Insulin Glargine 15 unit 07/04/18 21:00 07/04/18 20:40 Lantus Solostar SUBQ 15 unit QPM DELMY Administration Levetiracetam 750 mg 07/03/18 10:30 07/05/18 09:31 Keppra PO 750 mg BID DELMY Administration Methylprednisolone 40 mg 07/02/18 12:00 07/05/18 12:53 Solu-Medrol (40mg Vial) IVP 40 mg Q6HR DELMY Administration Mineral Oil 1 applic 07/02/18 18:42 07/05/18 09:57 Cavilon TOP 1 applic PRN PRN Administration Skin Care Mirtazapine 15 mg 07/03/18 21:00 07/04/18 20:42 Remeron PO 15 mg QPM DELMY Administration Nicotine 1 patch 07/04/18 09:00 07/05/18 10:43 Nicoderm TOP 1 patch DAILY DELMY Administration Oxybutynin Chloride 2.5 mg 07/04/18 09:00 07/05/18 09:28 Ditropan PO 2.5 mg DAILY DELMY Administration Polyethylene Glycol 17 gm 07/05/18 09:00 07/05/18 10:46 Miralax PO Not Given DAILY DELMY Saccharomyces Boulardii 250 mg 07/02/18 17:00 07/05/18 09:29 Florastor PO 250 mg BIDWM DELMY Administration Sodium Chloride 10 ml 07/02/18 17:00 07/05/18 11:29 Normal Saline Flush 0.9% IVP Not Given 0100,0900,1700 DELMY Sodium Chloride 10 ml 07/02/18 10:57 07/05/18 12:53 Normal Saline Flush 0.9% IVP 10 ml PRN PRN Administration NEEDED PER PROVIDER ORDERS Sucralfate 1 gm 07/03/18 11:00 07/05/18 11:46 Carafate PO 1 gm ACHS DELMY Administration - Lab Result Fish Bone Diagrams: 07/05/18 04:10 07/05/18 04:10 - Additional Planning My Orders: My Active Orders 07/05/18 Home Health Referral [CONS] Routine 07/05/18 11:15 guaiFENesin [Mucinex] 600 mg PO BID 07/05/18 13:53 Transfer [Admit \ Transfer \ Status] [RC] .ONCE Subjective - Subjective Patient Reports: Feeling Better, Resting Comfortably Nursing Reports: Other (Pt was able to sit up, dangling, when she had thoracentesis) Objective Vital Signs: Vital Signs - 24 hr 07/04/18 07/04/18 07/04/18 15:00 15:38 16:00 Temperature 36.8 C Heart Rate 65 Heart Rate [ 65 65 Monitoring electrodes] Respiratory 19 25 H Rate Blood Pressure 124/66 119/54 L [Left Brachial artery] O2 Saturation 98 93 07/04/18 07/04/18 07/04/18 17:00 17:01 18:00 Temperature 36.8 C Heart Rate 65 Heart Rate [ 65 92 Monitoring electrodes] Respiratory 24 Rate Blood Pressure 124/68 135/67 H [Left Brachial artery] O2 Saturation 96 95 92 07/04/18 07/04/18 07/04/18 19:00 19:21 20:00 Temperature 37 C Heart Rate 70 Heart Rate [ 71 68 66 Monitoring electrodes] Respiratory 20 26 H Rate Blood Pressure 86/64 L 115/73 [Left Brachial artery] O2 Saturation 92 95 95 07/04/18 07/04/18 07/04/18 21:00 22:00 23:00 Temperature Heart Rate 64 Heart Rate [ 69 65 65 Monitoring electrodes] Respiratory 20 22 24 Rate Blood Pressure 123/69 102/63 120/56 L [Left Brachial artery] O2 Saturation 99 94 93 07/05/18 07/05/18 07/05/18 00:00 01:00 02:00 Temperature 36.5 C Heart Rate Heart Rate [ 60 59 L 57 L Monitoring electrodes] Respiratory 23 20 20 Rate Blood Pressure 104/54 L 116/68 109/49 L [Left Brachial artery] O2 Saturation 96 96 97 07/05/18 07/05/18 07/05/18 02:31 03:00 04:00 Temperature 37 C Heart Rate 55 L Heart Rate [ 62 57 L Monitoring electrodes] Respiratory 19 20 Rate Blood Pressure 103/51 L 120/54 L [Left Brachial artery] O2 Saturation 94 96 07/05/18 07/05/18 07/05/18 05:00 05:49 06:00 Temperature Heart Rate 65 Heart Rate [ 58 L 57 L Monitoring electrodes] Respiratory 20 19 Rate Blood Pressure 121/48 L 121/56 L [Left Brachial artery] O2 Saturation 97 97 07/05/18 07/05/18 07/05/18 07:00 08:00 09:00 Temperature 36.4 C L Heart Rate Heart Rate [ 61 68 68 Monitoring electrodes] Respiratory 21 22 26 H Rate Blood Pressure 129/57 L 137/59 H 144/69 H [Left Brachial artery] O2 Saturation 90 L 94 96 07/05/18 07/05/18 07/05/18 10:00 11:00 12:00 Temperature Heart Rate Heart Rate [ 70 71 Monitoring electrodes] Respiratory 25 H 26 H 22 Rate Blood Pressure 129/61 108/48 L 131/69 H [Left Brachial artery] O2 Saturation 96 96 97 07/05/18 07/05/18 12:45 13:00 Temperature 37 C Heart Rate Heart Rate [ 71 Monitoring electrodes] Respiratory 16 Rate Blood Pressure 138/64 H [Left Brachial artery] O2 Saturation 94 Oxygen O2 Source [With Activity] Nasal cannula O2 Source Nasal cannula Oxygen Flow Rate 4 I&O (Last 24 Hrs): Intake and Output Totals x24h 07/03/18 07/04/18 07/05/18 23:59 23:59 23:59 Intake Total 2501.108 2763.877 2043.015 Output Total 563 1587 1184 Balance 6671.310 2726.877 859.015 HEENT: Mucous membr. moist/pink Neck: Supple, Other (obese) Neuro: Other (L side weak) Cardiovascular: Regular rate, No murmurs Respiratory: No respiratory distress, Breath sounds nml Abdomen: Soft, Other (Obese) Extremities: Other (Trace edema) - Results Results: Laboratory Results WBC 7.3 x10^3/uL (4.8-10.8) 07/05/18 04:10 RBC 3.92 10^6/uL (4.20-5.40) L 07/05/18 04:10 Hgb 11.4 g/dL (12.0-16.0) L 07/05/18 04:10 Hct 35.3 % (37.0-47.0) L 07/05/18 04:10 MCV 90.1 fL (81.0-99.0) 07/05/18 04:10 MCH 29.2 pg (27.0-31.0) 07/05/18 04:10 MCHC 32.4 g/dL (32.0-36.0) 07/05/18 04:10 RDW 15.1 % (12.0-15.0) H 07/05/18 04:10 Plt Count 258 10^3/uL (130-450) 07/05/18 04:10 MPV 8.4 fL (7.9-10.8) 07/05/18 04:10 Neut # (Auto) 6.7 10^3/uL (1.5-6.6) H 07/05/18 04:10 Lymph # (Auto) 0.4 10^3/uL (1.5-3.5) L 07/05/18 04:10 [place] # (Auto) 0.2 10^3/uL (0.0-1.0) 07/05/18 04:10 Eos # (Auto) 0.0 10^3/uL (0.0-0.7) 07/05/18 04:10 Baso # (Auto) 0.0 10^3/uL (0.0-0.1) 07/05/18 04:10 Absolute Nucleated RBC 0.00 x10^3/uL 07/05/18 04:10 Nucleated RBC % 0.0 /100WBC 07/05/18 04:10 PT 12.9 secs (9.9-12.6) H 07/03/18 04:30 INR 1.1 (0.8-1.2) 07/03/18 04:30 Bld Gas Analysis Time 1536 07/04/18 15:30 Sample Site RIGHT RADIAL 07/04/18 15:30 ABG pH 7.40 (7.35-7.45) 07/04/18 15:30 ABG pCO2 46 mmHg (34-45) H 07/04/18 15:30 ABG pO2 72 mmHg (80-100) L 07/04/18 15:30 ABG HCO3 26.4 mmol/L (22.0-26.0) H 07/04/18 15:30 ABG Total CO2 27.8 MMOL/L (21.0-29.0) 07/04/18 15:30 ABG O2 Saturation 94 % (94-98) 07/04/18 15:30 ABG Base Excess 0.8 mmol/L (-2.0-3.0) 07/04/18 15:30 Navdeep Test POSITIVE 07/04/18 15:30 Respiration Rate 23 b/min 07/03/18 08:45 O2 Delivery Device BiPAP 07/04/18 15:30 O2 Liters/Min 4.00 LPM 07/02/18 09:25 Vent Mode SYNCHRONOUS/TIMES 07/03/18 08:45 FiO2 35.00 07/04/18 15:30 Tidal Volume 618 mL 07/03/18 08:45 Pressure Support Vent 8 cmH2O 07/03/18 08:45 EPAP 5 cmH2O 07/04/18 15:30 IPAP 12 cmH2O 07/04/18 15:30 Sodium 136 mmol/L (135-145) 07/05/18 04:10 Potassium 4.9 mmol/L (3.5-5.0) 07/05/18 04:10 Chloride 105 mmol/L (101-111) 07/05/18 04:10 Carbon Dioxide 27 mmol/L (21-32) 07/05/18 04:10 Anion Gap 4.0 (6-13) L 07/05/18 04:10 BUN 42 mg/dL (6-20) H 07/05/18 04:10 Creatinine 1.4 mg/dL (0.4-1.0) H 07/05/18 04:10 Estimated GFR (MDRD) 37 (>89) L 07/05/18 04:10 Glucose 257 mg/dL (70-100) H 07/05/18 04:10 POC Whole Bld Glucose 304 mg/dL (70 - 100) H 07/05/18 12:39 Glycated Hemoglobin 6.5 % (4.6-6.2) H 07/03/18 04:30 Estim Average Glucose 140 (70-100) H 07/03/18 04:30 Lactic Acid 1.1 mmol/L (0.5-2.2) 07/02/18 09:35 Calcium 7.8 mg/dL (8.5-10.3) L 07/05/18 04:10 Phosphorus 3.2 mg/dL (2.5-4.6) 07/05/18 04:10 Magnesium 2.3 mg/dL (1.7-2.8) 07/05/18 04:10 Total Bilirubin 0.3 mg/dL (0.2-1.0) 07/05/18 04:10 AST 28 IU/L (10-42) 07/05/18 04:10 ALT 32 IU/L (10-60) 07/05/18 04:10 Alkaline Phosphatase 53 IU/L (42-121) 07/05/18 04:10 Troponin I < 0.04 ng/mL (<0.49) 07/02/18 20:45 B-Natriuretic Peptide 253 pg/mL (5-100) H 07/05/18 04:10 Total Protein 6.2 g/dL (6.7-8.2) L 07/05/18 04:10 Albumin 2.9 g/dL (3.2-5.5) L 07/05/18 04:10 Globulin 3.3 g/dL (2.1-4.2) 07/05/18 04:10 Albumin/Globulin Ratio 0.9 (1.0-2.2) L 07/05/18 04:10 Lipase 32 U/L (22-51) 07/02/18 09:35 TSH 1.12 uIU/mL (0.34-5.60) 07/03/18 04:30 Free T3 pg/mL 2.36 pg/mL (2.5-3.9) L 07/03/18 04:30 Total T3 0.47 ng/mL (0.87-1.78) L 07/03/18 04:30 Urine Color YELLOW 07/02/18 10:23 Urine Clarity CLOUDY (CLEAR) 07/02/18 10:23 Urine pH 5.0 PH (5.0-7.5) 07/02/18 10:23 Ur Specific [place] >=1.030 (1.002-1.030) H 07/02/18 10:23 Urine Protein 100 mg/dL (NEGATIVE) H 07/02/18 10:23 Urine Glucose (UA) NEGATIVE mg/dL (NEGATIVE) 07/02/18 10:23 Urine Ketones NEGATIVE mg/dL (NEGATIVE) 07/02/18 10:23 Urine Occult Blood SMALL (NEGATIVE) H 07/02/18 10:23 Urine Nitrite POSITIVE (NEGATIVE) H 07/02/18 10:23 Urine Bilirubin NEGATIVE (NEGATIVE) 07/02/18 10:23 Urine Urobilinogen 0.2 (NORMAL) E.U./dL (NORMAL) 07/02/18 10:23 Ur Leukocyte Esterase MODERATE (NEGATIVE) H 07/02/18 10:23 Urine RBC 0-5 /HPF (0-5) 07/02/18 10:23 Urine WBC >25 /HPF (0-5) H 07/02/18 10:23 Urine WBC Clumps PRESENT 07/02/18 10:23 Ur Squamous Epith Cells FEW Squamous (<= Few) 07/02/18 10:23 Urine Bacteria Moderate /HPF (None Seen) H 07/02/18 10:23 Ur Microscopic Review INDICATED 07/02/18 10:23 Urine Culture Comments INDICATED 07/02/18 10:23 Fluid Source PLEURAL 07/05/18 11:20 Fluid Color BLOODY 07/05/18 11:20 Fluid Clarity BLOODY 07/05/18 11:20 Fluid WBC 326 /mm^3 07/05/18 11:20 Fluid RBC 76159 /mm^3 07/05/18 11:20 Fluid Neutrophils % 16 % 07/05/18 11:20 Fluid Lymphocytes % 78 07/05/18 11:20 Fld Mesothelial Cell % 6 % 07/05/18 11:20 Influenza A (Rapid) Negative (Negative) 07/02/18 13:30 Influenza B (Rapid) Negative (Negative) 07/02/18 13:30
[2018-07-05] MEDS ORDERED: BUFFERED LIDOCAINE 10 ML SYRINGE IU ONE (17:18)
[2018-07-05] MEDS: IPRATROPIUM/ALBUTEROL 3 ML NEB INH PRN (18:04)
[2018-07-05] MEDS: INSULIN GLARGINE 300 UNIT/3 ML PEN SUBQ SCH (21:07)
[2018-07-05] MEDS: MIRTAZAPINE 15 MG TABLET PO SCH (21:12)
[2018-07-05] MEDS: FAMOTIDINE 20 MG TABLET PO SCH (21:12)
[2018-07-05] MEDS: ATORVASTATIN 10 MG TABLET PO SCH (21:12)
[2018-07-06] MEDS: ACETAMINOPHEN 325 MG TABLET PO PRN (02:18)
[2018-07-06] MEDS: SODIUM CHLORIDE FLUSH 0.9% 10 ML SYRINGE IVP PRN ×3 (02:22→09:09)
[2018-07-06 05:12] LABS: BASOPHILS % (AUTO) 0.3 %; HGB - HEMOGLOBIN 11.8 g/dL (12.0-16.0); LYMPHOCYTES # (AUTO) 0.5 10^3/uL (1.5-3.5); LYMPHOCYTES % (AUTO) 5.3 %; MEAN CORPUSCULAR HEMOGLOBIN 29.2 pg (27.0-31.0); MEAN CORPUSCULAR VOLUME 91.4 fL (81.0-99.0); MEAN PLATELET VOLUME 8.4 fL (7.9-10.8); MONOCYTES # (AUTO) 0.4 10^3/uL (0.0-1.0); MONOCYTES % (AUTO) 4.3 %; NEUTROPHILS # (AUTO) 7.7 10^3/uL (1.5-6.6); NEUTROPHILS % (AUTO) 90.1 %; PLT - PLATELET COUNT 254 10^3/uL (130-450); RED BLOOD COUNT 4.02 10^6/uL (4.20-5.40); RED CELL DISTRIBUTION WIDTH 14.7 % (12.0-15.0); WHITE BLOOD COUNT 8.6 x10^3/uL (4.8-10.8)
[2018-07-06 05:20] LABS: ALBUMIN 2.9 g/dL (3.2-5.5); ALBUMIN/GLOBULIN RATIO 0.9 (1.0-2.2); BILIRUBIN,TOTAL 0.3 mg/dL (0.2-1.0); CALCIUM 7.9 mg/dL (8.5-10.3); CREATININE 1.2 mg/dL (0.4-1.0); MAGNESIUM 2.3 mg/dL (1.7-2.8); PHOSPHORUS 2.9 mg/dL (2.5-4.6); TOTAL PROTEIN 6.1 g/dL (6.7-8.2)
[2018-07-06] MEDS: methylPREDNISolone SUCCINATE 40 MG/ML VIAL IVP SCH (06:36)
[2018-07-06] MEDS: GABAPENTIN 300 MG CAPSULE PO SCH (06:40)
[2018-07-06] MEDS: SUCRALFATE 1 GM/10 ML UDC PO SCH (06:50)
[2018-07-06 07:45] VITALS: BP 143/72
--- NOTE | 2018-07-06 08:54 | Discharge Plan ---
Discharge Plan Disposition: Home, Self Care Condition: Stable Prescriptions: Azithromycin [Zithromax] 250 mg PO BID #8 tablet Ciprofloxacin [Cipro] 250 mg PO BID #8 tablet Fluticasone/Salmeterol [Advair 250-50 Diskus] 2 each IH BID #45 blst.w.dev guaiFENesin [Mucinex] 600 mg PO BID #10 tablet Methylprednisolone [Medrol] 4 mg PO DAILY #1 tab.ds.pk Tiotropium [place] [Spiriva] 2 puffs IH BID #45 cap.w.dev Diet: Diabetic Activity Restrictions: Activity as Tolerated Shower Restrictions: No Driving Restrictions: Yes Weight Bearing: Partial Weight (Pivot) Additional Instructions or Follow Up instructions: You were admitted for a urinary tract infection that caused lethargy, and a pneumonia causing a COPD exacerbation. You are being discharged and should complete the prescribed courses of antibiotics for the UTI (using Cipro for 4 more days) and the pneumonia (using Zithromax for 4 more days). A tapering-down prescription of oral steroids for your lungs was also prescribed and Mucinex for the mucous production. You also have new prescriptions for 2 inhalers that you should use every day, residential and get refills from your PCP. Resume your other pre-hospital medications. You now need to be on supplemental oxygen at home, set at 2 L/min, via nasal cannula. This was ordered for you. Home Health visits from a nurse and Physical Therapist have been arranged for you. You should see your PCP in 1-2 weeks in follow-up. If you have new or worsening symptoms, come to the ER. Follow-Up Care: Home Health - PT, Home Health - OT No Smoking: If you smoke, Please STOP! Call for help. Follow-up with: Belem Doe MD [Primary Care Provider] -
[2018-07-06] MEDS: ENOXAPARIN 40 MG/0.4 ML SYRINGE SUBQ SCH (09:09)
[2018-07-06] MEDS: SODIUM CHLORIDE FLUSH 0.9% 10 ML SYRINGE IVP SCH (09:09)
[2018-07-06] MEDS: SACCHAROMYCES BOULARDII 250 MG CAPSULE PO SCH (09:09)
[2018-07-06] MEDS: POLYETHYLENE GLYCOL 3350 17 GM PACKET PO SCH (09:09)
[2018-07-06] MEDS: ASPIRIN EC 325 MG TABLET PO SCH (09:10)
[2018-07-06] MEDS: levETIRAcetam 250 MG TABLET PO SCH (09:10)
[2018-07-06] MEDS: OXYBUTYNIN 5MG TABLET PO SCH (09:10)
[2018-07-06] MEDS: guaiFENesin 600 MG TABLET PO SCH (09:10)
[2018-07-06] MEDS: amLODIPine 5 MG TABLET PO SCH (09:10)
[2018-07-06] MEDS: FAMOTIDINE 20 MG TABLET PO SCH (09:10)
[2018-07-06] MEDS: CLOPIDOGREL 75 MG TABLET PO SCH (09:13)
[2018-07-06] MEDS: AZITHROMYCIN INJ 500 MG in SODIUM CHLORIDE 0.9% 250 ML IV SCH (09:14)
[2018-07-06] MEDS: NICOTINE 14 MG PATCH TOP SCH (09:14)
[2018-07-06] MEDS: INSULIN ASPART 300 UNIT/3 ML PEN SUBQ SCH (10:17)
[2018-07-06] MEDS: cefTRIAXone 2 GM in SODIUM CHLORIDE 0.9% MINIBAG 100 ML IV SCH (10:37)
--- NOTE | 2018-07-11 15:34 | DISCHARGE SUMMARY ---
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 PRESENTATION: The patient was becoming weaker, more short of breath with a wet productive cough, and normally she can help her raise her out of the wheelchair by using her strong right side, but on this day, she was lethargic, had audible wheezing, and the thought she looked like she would stop breathing, and he therefore called 911. She was brought to the emergency room and was found to be hypercapnic with a pCO2 of 70, pH of 7.23, was placed on BiPAP, and workup showed a pneumonia and pleural effusion, and UTI. She had a CT angiogram done through the ER that revealed no evidence of a pulmonary embolism, and also a 2.6 cm hypodense left thyroid nodule. She was admitted to the ICU for management. HOSPITAL COURSE AND DISCHARGE DIAGNOSES 1. Community-acquired pneumonia. She had a left lower lobe infiltrate. This was treated with IV ceftriaxone. No sputum was obtained to produce a culture. Her blood cultures remained negative throughout this course. She was sent home to finish a course of antibiotics using Cipro 250 mg p.o. b.i.d. and Zithromax po. 2. Pleural effusion. The patient had diuresis, but continued to show a pleural effusion on CXR, and she underwent a diagnostic and therapeutic thoracentesis; 700 mL of dark fluid was removed and sent for studies, and there was no subsequent pneumothorax. The patient's respiratory status improved rapidly after this. The pleural fluid was sent for culture, but never grew any bacteria. 3. History of cerebrovascular accident. The patient has longstanding left- sided weakness from her remote stroke. She was seen by physical therapy once she was not short of breath, and PT advised that she have strengthening of her left side to be able to at least pivot. Discharge to a [place] [facility] facility was advised; however, the patient and declined this, and she was therefore arranged to have Home Health visits from an RN, PT, and OT. 4. Ovarian mass. The patient has occasional left lower quadrant pain when she tries to stand, making it difficult for movement. She knows this is inoperable because of her high risk. She has seen Palliative Care in the past. 5. Chronic kidney disease stage 3, GFR 30-59. The patient's admission creatinine was 1.4 and at discharge was 1.2 by managing of her fluid status. 6. Acute exacerbation of chronic obstructive pulmonary disease with asthma. The patient required nebulizers, IV steroids, BiPAP, and supplemental oxygen, and an ICU stay. Eventually, her respiratory status improved, the IV steroid frequency was decreased, and she was discharged to home with a Medrol DosePak for steroid tapering, as well as new Advair inhaler and Spiriva inhaler. Her underlying COPD is likely from her very heavy smoking history, as she was smoking "one cigarette every 30-60 minutes." She is very focused on this and refuses to quit. The daughter, who is in the medical profession, as well as have agreed to give her cigarettes on a timed schedule. I advised the patient, , and daughter that this should be tapered to off, but the patient refused. 8. Congestive heart failure exacerbation. The physical exam was consistent with anasarca, as well as pulmonary edema on admission. She responded to diuresis, and had no edema at discharge. Her pulmonary edema improved, but the pleural effusion required thoracentesis as described above. Her troponin values were negative, and she underwent an Echocardiogram here, showing LVEF of 60% to 65%, mild mid LV cavity gradient of 8 mmHg at rest, 38 mmHg with Valsalva maneuver (this is consistent with a type of IHSS). The right ventricular size and function were normal by Echocardiogram. 9. Congestive heart failure. This was felt to be from diastolic heart failure. Lasix was stopped after several days in order to prevent volume depletion and worsening renal function. 10. Urinary tract infection from Escherichia coli. Her lethargy was felt to be from the hypercapnia as well as pneumonia and UTI. She was transitioned to Levaquin after the ceftriaxone for coverage of E. coli that grew in the urine culture. The plan was to complete a 10-day total course. 11. IDDM. She was on a carb-controlled diet and Insulin coverage while here. LABORATORY AND IMAGING: Reviewed and summarized above. ALLERGIES: COCONUT. MEDICATIONS AT DISCHARGE 1. Adult dose aspirin daily. 2. Carafate before meals and at bedtime p.r.n. 3. Tylenol p.r.n. 4. Albuterol p.r.n. 5. ProAir inhaler p.r.n. 6. Amlodipine 10 mg daily. 7. Lipitor 20 mg every night. 8. Zithromax 250 mg b.i.d. for 3 more days. 9. Cipro 250 mg b.i.d. for 4 more days. 10. Plavix 75 mg daily. 11. Diltiazem CD 120 mg daily. 12. Advair inhaler b.i.d. 13. Neurontin 600 mg t.i.d. 14. Mucinex 600 mg b.i.d. for 5 more days. 15. Lantus insulin 10 units subcutaneous every p.m. 16. Imdur 30 mg daily. 17. Levetiracetam 750 mg b.i.d. 18. Lisinopril 20 mg b.i.d. 19. Medrol DosePak, tapering down schedule. 20. Remeron 15 mg every night for depression. 21. Nystatin topical cream p.r.n. 22. Ditropan 2.5 mg daily. 23. Protonix 40 mg daily p.r.n. 24. Spiriva inhaler scheduled b.i.d. CONDITION AT DISCHARGE: Stable. PHYSICAL EXAMINATION VITAL SIGNS: Blood pressure 140/70, heart rate 69, afebrile. Room air saturation was 87%, which improved to 93% on 2 liters nasal cannula. Therefore, I am ordering her to be on 2 liters nasal cannula continuously, which is a new order for her. The oxygen will be delivered to her house today. HEENT: Unremarkable. NECK: Without JVD, but she is obese. CHEST: Clear. HEART: Sounds distant. ABDOMEN: Obese with a pannus. EXTREMITIES: No edema. NEUROLOGIC: Left side has hemiplegia. CODE STATUS: DNI. FOLLOWUP: Patient advised to see her PCP within 1-2 weeks, and she is to have Home Health with visiting RN, PT, and OT. Time to complete this entire discharge, chart review, prescription orders, dictation: 65 minutes. cc: Belem Doe MD TD: 07/11/2018 14:43 BRAN
== END 2018-07-06 11:26 | disposition home health service (06) | DRG 193 ==
LOC: EDBD → EDUNIT# → ED 08:16 → ICU 10:58 → MS2 07-06 01:17
PROVIDERS: ADMIT Internal Medicine; ATTEND Internal Medicine
PROC: 0W9B3ZZ Drainage of Left Pleural Cavity, Percutaneous Approach (ICD-10-PCS; principal; 2018-07-05)
DX: J44.1 Chronic obstructive pulmonary disease with (acute) exacerbation (principal); I11.0 Hypertensive heart disease with heart failure; I50.9 Heart failure, unspecified; E11.9 Type 2 diabetes mellitus without complications; J18.1 Lobar pneumonia, unspecified organism; F17.200 Nicotine dependence, unspecified, uncomplicated; J96.02 Acute respiratory failure with hypercapnia; I50.33 Acute on chronic diastolic (congestive) heart failure; J96.01 Acute respiratory failure with hypoxia; I69.354 Hemiplegia and hemiparesis following cerebral infarction affecting left non-dominant side; I42.1 Obstructive hypertrophic cardiomyopathy; I13.0 Hypertensive heart and chronic kidney disease with heart failure and stage 1 through stage 4 chronic kidney disease, or unspecified chronic kidney disease; N30.00 Acute cystitis without hematuria; N17.9 Acute kidney failure, unspecified; J43.9 Emphysema, unspecified; E11.22 Type 2 diabetes mellitus with diabetic chronic kidney disease; N18.3 Chronic kidney disease, stage 3 (moderate); B96.20 Unspecified Escherichia coli [E. coli] as the cause of diseases classified elsewhere; I69.398 Other sequelae of cerebral infarction; G40.909 Epilepsy, unspecified, not intractable, without status epilepticus; E11.65 Type 2 diabetes mellitus with hyperglycemia; E11.51 Type 2 diabetes mellitus with diabetic peripheral angiopathy without gangrene; E66.01 Morbid (severe) obesity due to excess calories; D49.59 Neoplasm of unspecified behavior of other genitourinary organ; E78.5 Hyperlipidemia, unspecified; E04.1 Nontoxic single thyroid nodule; K21.9 Gastro-esophageal reflux disease without esophagitis; F32.9 Major depressive disorder, single episode, unspecified; J45.909 Unspecified asthma, uncomplicated; F17.210 Nicotine dependence, cigarettes, uncomplicated; Z51.5 Encounter for palliative care; Z66 Do not resuscitate; Z79.4 Long term (current) use of insulin; Z99.3 Dependence on wheelchair; Z79.82 Long term (current) use of aspirin; Z79.02 Long term (current) use of antithrombotics/antiplatelets; Z79.899 Other long term (current) drug therapy
CPT/HCPCS: 32555; 36415; 36600; 51702; 71045; 71275; 80053; 81001; 81003; 82803; 83036; 83605; 83690; 83735; 83880; 84100; 84443; 84480; 84481; 84484; 85025; 85610; 87070; 87086; 87150; 87181; 87205; 87275; 87276; 89051; 93005; 93306; 94640; 94660; 94761; 96374; 96375; 99284; 99291

== ENCOUNTER 2018-07-06 11:30 | Outpatient (CLI) | payer MEDICARE, OTHER | END 2018-07-06 11:31 | disposition home or self-care (01) | LOC: EMS 11:30 | PROVIDERS: ATTEND Surgery | DX: I69.954 Hemiplegia and hemiparesis following unspecified cerebrovascular disease affecting left non-dominant side (principal); J44.9 Chronic obstructive pulmonary disease, unspecified; Z74.01 Bed confinement status; Z99.81 Dependence on supplemental oxygen | CPT/HCPCS: A0425; A0428 ==

== ENCOUNTER 2018-07-07 10:15 | Outpatient (CLI) | payer MEDICARE, OTHER | END 2018-07-07 10:16 | disposition critical access hospital (66) | LOC: EMS 10:15 | PROVIDERS: ATTEND Surgery | DX: R06.00 Dyspnea, unspecified (principal); R53.1 Weakness | CPT/HCPCS: A0425; A0427 ==

== ENCOUNTER 2018-07-07 10:40 | Inpatient (IN) | payer MEDICARE, OTHER ==
--- NOTE | 2018-07-07 10:58 | ED Physician Documentation ---
History of Present Illness - Stated complaint Stated Complaint: WEAKNESS - Additonal information Additional information: hx from EMS and EMR and pt 73 f dc from yesterday was admitted for pna COPD UTI CHF pleural effusion she was txed with cipro levaquin zmax lasix had an echo and a thoracentesis she was on BiPAP for a while dc on cipro zmax steroids and home O2 per EMS is not doing well at home per EMS pt was in a chair incontinent of stool and family could not find her m edications (family arrived later and state she got meds filled but has not taken any today and she is too weak and soa to transfer on her own and to [facility] for them to safely assist) she was SOA and wheezing - pt states her home O2 was delivered and she has MDI but but not neb at home - been en route and improving BIBA and per EMS family wants her placed in a SNF pt denies pain except abd pain which she states is due to her abd tumor and is not new Review of Systems Constitutional: denies: Fever Cardiac: denies: Chest pain / pressure Respiratory: reports: Dyspnea, Cough, Wheezing GI: reports: Abdominal Pain (not new) Musculoskeletal: reports: Extremity swelling PD PAST MEDICAL HISTORY - Past Medical History Cardiovascular: Hypertension, High cholesterol, Peripheral Vascular Disease, Mur mur Respiratory: COPD, Emphysema Neuro: CVA (Residual left-sided weakness), Seizure disorder (Secondary to stroke) Endocrine/Autoimmune: Type 2 diabetes GI: GERD [employer]PERATOR: Ovarian cancer : Chronic bladder infection HEENT: Chronic vision loss Psych: Depression Musculoskeletal: Hemiplegia Derm: Psoriasis - Past Surgical History Past Surgical History: Yes HEENT: Tonsil/Adenoidectomy - Present Medications Home Medications: Ambulatory Orders Medication Instructions Recorded Confirmed Aspirin [Aspirin EC] 325 mg PO DAILY 08/22/13 07/07/18 Clopidogrel [Plavix] 75 mg PO DAILY 08/22/13 07/07/18 Mirtazapine [Remeron] 15 mg PO QPM 08/22/13 07/07/18 Pantoprazole Sodium [Protonix] 40 mg PO QDAC 08/22/13 07/07/18 Sucralfate [Carafate] 1 gm PO ACHS 08/22/13 07/07/18 Atorvastatin Calcium 20 mg PO QPM 07/02/18 07/07/18 Gabapentin [Neurontin] 600 mg PO TID 07/02/18 07/07/18 Insulin Glargine [Lantus Solostar] 10 unit SQ QPM 07/02/18 07/07/18 Lisinopril 20 mg PO BID 07/02/18 07/07/18 Oxybutynin [Ditropan] 2.5 mg PO DAILY 07/02/18 07/07/18 Albuterol Sulfate [Proair Hfa 2 puffs INH Q4H PRN 07/03/18 07/07/18 Inhaler] Amlodipine Besylate 10 mg PO DAILY 07/03/18 07/07/18 levETIRAcetam [Levetiracetam] 750 mg PO BID 07/03/18 07/07/18 Azithromycin [Zithromax] 250 mg PO BID #8 tablet 07/06/18 07/07/18 Ciprofloxacin [Cipro] 250 mg PO BID #8 tablet 07/06/18 07/07/18 Fluticasone/Salmeterol [Advair 2 each IH BID #45 blst.w.dev 07/06/18 07/07/18 250-50 Diskus] Methylprednisolone [Medrol] 4 mg PO DAILY #1 tab.ds.pk 07/06/18 07/07/18 Tiotropium [place] [Spiriva] 2 puffs IH BID #45 cap.w.dev 07/06/18 07/07/18 guaiFENesin [Mucinex] 600 mg PO BID #10 tablet 07/06/18 07/07/18 - Allergies Allergies/Adverse Reactions: Allergies Allergy/AdvReac Type Severity Reaction Status Date / Time coconut AdvReac Nausea Verified 07/03/18 11:47 - Social History Does the pt smoke?: Yes Smoking Status: Current every day smoker Does the pt drink ETOH?: No Does the pt have substance abuse?: No - Immunizations Immunizations are current?: Yes - POLST Patient has POLST: Yes POLST Status: Limited Interventions (does not want intubation, and I affirmed that with her and her verbally here in ER.) PD ED PE NORMAL - Vitals Vital signs reviewed: Yes - General General: Other (awake labored resp) - Neck Neck: Supple, no meningeal sign - Cardiac Cardiac: RRR - Respiratory Respiratory: Other (insp exp wheeze) - Abdomen Abdomen: Soft, Other (mod TTP s peritoneal sx) - Derm Derm: Normal color - Extremities Extremities: Other (jag marked edema) - Neuro Neuro: Other (alert cooperative) Results - Vitals Vitals: Vital Signs - 24 hr 07/07/18 07/07/18 07/07/18 10:45 11:23 12:30 Temperature 36.0 C L Heart Rate 68 72 73 Respiratory 22 26 H 14 Rate Blood Pressure 185/50 H 187/62 H O2 Saturation 94 93 07/07/18 14:34 Temperature 36.6 C Heart Rate 72 Respiratory 20 Rate Blood Pressure 196/56 H O2 Saturation 96 Oxygen O2 Source [With Activity] Nasal cannula O2 Source Room air - Rads (name of study) CXR Radiology: See rad report (worsening pna effusions and atelectasis) post line CXR Radiology: See rad report (no pneumo, line distal SVC, L effusion) PD MEDICAL DECISION MAKING - ED course ED course: intial plan was to try and place in SNF but CXR shows worsening CHF pna effusions and atelectasis spoke to hospitalist who will re-admit pt for further care and dispo - spoke at 1250 admission delayed 2/2 pt has no IV access - numerous ER nurses tried, I tried, anesthesia tried anestheisa also considered PICC but no periph access vis on sono so anesthesia kindly placed R IJ central line Departure - Departure Disposition: 66 [facility] DC/Xfer Clinical Impression: Weakness Dyspnea Qualifiers: Dyspnea type: unspecified Qualified Code(s): R06.00 - Dyspnea, unspecified Discharge Date/Time: 07/07/18 16:52
[2018-07-07] MEDS ORDERED: DEXAMETHASONE 10 MG/ML VIAL PO STA (11:03)
[2018-07-07] MEDS ORDERED: ALBUTEROL NEB 2.5 MG/3 ML INH STA (11:03)
--- NOTE | 2018-07-07 12:35 | XRAY Report ---
Reason: soa recent pna and CHF and pleural effusion Procedure Date: 07/07/2018 Accession Number: [id number] / [id number] Procedure: XR - Chest 2 View X-Ray CPT Code: 85409 FULL RESULT: EXAM: CHEST RADIOGRAPHY 2 VIEWS EXAM DATE: 07/07/2018. CLINICAL HISTORY: Shortness of breath. Wheezing. COMPARISON: 07/05/2018 at 1314. TECHNIQUE: AP and lateral views. FINDINGS: Lungs/Pleura: Normal vasculature. Moderate pleural effusions, probably larger than on the prior examination, especially on the left. Increase of bilateral lower lung atelectasis. No pneumothorax. Mediastinum: Cardiac and mediastinal contours are normal for the technique. Aortic atherosclerosis again demonstrated. Bones: Mild degenerative changes of the spine. IMPRESSION: Bilateral pleural effusions appear larger than on 07/05/2018, especially on the left. Increasing bilateral lower lung atelectasis or pneumonia. RADIA
[2018-07-07 16:37] LABS: BASOPHILS # (AUTO) 0.1 10^3/uL (0.0-0.1); BASOPHILS % (AUTO) 0.6 %; EOSINOPHILS % (AUTO) 0.2 %; HGB - HEMOGLOBIN 12.5 g/dL (12.0-16.0); LYMPHOCYTES # (AUTO) 0.4 10^3/uL (1.5-3.5); LYMPHOCYTES % (AUTO) 3.6 %; MEAN CORPUSCULAR HEMOGLOBIN 28.9 pg (27.0-31.0); MEAN CORPUSCULAR VOLUME 90.2 fL (81.0-99.0); MONOCYTES # (AUTO) 0.2 10^3/uL (0.0-1.0); MONOCYTES % (AUTO) 2.1 %; NEUTROPHILS # (AUTO) 10.8 10^3/uL (1.5-6.6); NEUTROPHILS % (AUTO) 93.5 %; PLT - PLATELET COUNT 267 10^3/uL (130-450); RED BLOOD COUNT 4.33 10^6/uL (4.20-5.40); RED CELL DISTRIBUTION WIDTH 14.9 % (12.0-15.0); WHITE BLOOD COUNT 11.6 x10^3/uL (4.8-10.8)
--- NOTE | 2018-07-07 16:44 | ANESTHESIA PROCEDURE NOTE ---
Anesth Central Line Template - Central Line Central Line Preparation: Consent Obtained, Time out completed, Ultrasound used, Sterile prep and drape Central line location: Right IJ Central line aftercare: Chlorhexidine disc placed, Secured (sutured), Placement confirmed (Dr. Daniel will check CXR), No complications, Bundle checklist complete, Pt tolerated well, Other (Central line placed for difficult IV access, numerous PIV attempts by RN's, ER physician and myself)
[2018-07-07 16:49] LABS: CALCIUM 8.2 mg/dL (8.5-10.3); CREATININE 1.1 mg/dL (0.4-1.0)
[2018-07-07] MEDS ORDERED: ALBUTEROL 6.7 GM INHALER INH PRN (18:51)
--- NOTE | 2018-07-07 18:51 | XRAY Report ---
Reason: Post line placement Procedure Date: 07/07/2018 Accession Number: [id number] / [id number] Procedure: XR - Chest for Line Placement CPT Code: FULL RESULT: EXAM: CHEST RADIOGRAPHY. EXAM DATE: 07/07/2018 05:26 PM. CLINICAL HISTORY: Post line placement. COMPARISON: Chest 2 view 07/07/2018 12:04 PM. TECHNIQUE: 1 view. FINDINGS: Lungs/Pleura: Moderate left pleural effusion. The right lung is clear. Interval placement of a right IJ central venous catheter with tip in the mid to lower SVC. No pneumothorax. Mediastinum: Within exam limitations, the cardiomediastinal contour is normal. Other: None. IMPRESSION: 1. Interval right IJ central line placement to mid to lower SVC. 2. No pneumothorax. 3. Moderate left pleural effusion. RADIA
[2018-07-07] MEDS ORDERED: amLODIPine 5 MG TABLET PO SCH (18:54)
[2018-07-07] MEDS ORDERED: IPRATROPIUM/ALBUTEROL 3 ML NEB INH PRN (19:14)
[2018-07-07] MEDS: SODIUM CHLORIDE FLUSH 0.9% 10 ML SYRINGE IVP SCH (20:01)
[2018-07-07] MEDS: AZITHROMYCIN INJ 500 MG in SODIUM CHLORIDE 0.9% 250 ML IV SCH (20:23)
[2018-07-07] MEDS: CIPROFLOXACIN 400 MG/200 ML 200 ML IV SCH (20:23)
--- NOTE | 2018-07-07 20:40 | HISTORY & PHYSICAL EXAMINATION ---
DATE OF SERVICE: 07/07/2018 Physician: Cyndi Gonsalez MD HISTORY OF PRESENT ILLNESS: This is a 73-year-old white female with history of obesity, diabetes on insulin, old stroke leaving her with severe left-sided weakness (she is mostly wheelchair bound), history of COPD, continues to smoke, history of diastolic heart failure. She was just discharged from here 1 day ago after an admission for COPD exacerbation due to community-acquired pneumonia as well as fluid overload from diastolic heart failure; she needed a thoracentesis for a pleural effusion. During that admission, she was diuresed, required nebulizers and IV steroids, was on IV antibiotics and discharged home on a tapering dose of steroids, to continue a course of antibiotics, needing new home oxygen at 2 liters, and continuation of her medications for wheezing as well as her diabetes. The patient was to have Home Health physical therapy start to get strengthening to be able to stand and at least pivot on the leg that has the severe weakness. The and daughter felt she could be managed at home. However, during the half day she was at home the patient did not get any of her ordered medications, she had no steroids, inhalers, or antibiotics because the [facility] pharmacy was not open and the family did not take the prescriptions to a local pharmacy because of the high copay costs. She was allowed to have a cigarette "once every hour" according to the family report. In the 12 to 20 hours that she was at home, she worsened as far as shortness of breath at rest, was more confused, coughing with a wet productive cough, and was brought to the emergency room. In the ER, she was found to have worsening of pulmonary congestion, bibasilar infiltrates were seen, she was hypertensive and desaturating. She received nebulizers and one dose of IV steroids in the emergency room. She also was incontinent of loose stool, which is a new complaint. She is being admitted for management of her COPD with wheezing, recurrent CHF, recurrent or worsening pneumonia, as well as new diarrhea, with the possibility of Clostridium difficile because of recent antibiotic use. PAST MEDICAL HISTORY 1. Hypertension. 2. Obesity. 3. Diabetes on Insulin. 4. Chronic obstructive pulmonary disease. 5. Continued heavy smoking. 6. Diastolic heart failure. 7. Stroke with left-sided weakness. ALLERGIES: COCONUTS. MEDICATIONS AT HOME She is supposed to be takin. Zithromax 500 mg daily. 2. Cipro 250 mg b.i.d. 3. Advair inhaler b.i.d. 4. Mucinex 600 mg b.i.d. 5. Medrol Dosepak, tapering down schedule. 6. Spiriva 2 puffs b.i.d. 6. ProAir inhaler q.4 h. p.r.n. 7. Amlodipine 10 mg daily. 8. Baby aspirin daily. 9. Lipitor 20 mg every night. 10. Plavix 75 mg daily. 11. Gabapentin 600 mg t.i.d. 12. Lantus insulin 10 units subcu every night. 13. Levetiracetam 750 mg b.i.d. 14. Lisinopril 20 mg b.i.d. 15. Remeron 15 mg every night. 16. Oxybutynin 2.5 mg daily. 17. Protonix 40 mg daily. REVIEW OF SYSTEMS: A comprehensive review of systems was performed, and the pertinent positives are listed in the HPI, the rest are negative. SOCIAL HISTORY: She lives at home; her is her caregiver. She is able to get her out of bed into a wheelchair and also go to the toilet with his assistance; he pulls her up with a belt. The patient continues to smoke 1 cigarette "every hour". The has timed her because she asks for cigarettes even more frequently. The patient has no alcohol intake use and no illicit drug use history. FAMILY HISTORY: No inherited diseases. PHYSICAL EXAMINATION GENERAL: Obese white female. She is in mild respiratory distress. VITAL SIGNS: Blood pressure 170/50, heart rate 60 in sinus rhythm, afebrile. Room air saturation is unknown, she was on 2 liters nasal cannula with saturation of 96%. HEENT: Moist oral mucosa. Her lips are cyanotic. NECK: Her neck is obese; I cannot rule out JVD. CHEST: Diffusely diminished breath sounds, poor air entry. No wheezing, no rales. HEART: Heart sounds are very distant. BREASTS: Pendulous. ABDOMEN: Obese with normal bowel sounds. No tenderness. I cannot rule out organomegaly or ascites. EXTREMITIES: Legs have 4+ edema to the posterior thighs. (When she left 1 day ago, she had no edema). There is no clubbing or cyanosis. NEUROLOGIC: Her left side is weak. She is awake and alert, but confused, she did not remember that she was in the hospital after her family left the room. LABORATORY FINDINGS Sodium 138, potassium 4.4, BUN 40, creatinine 1.1, (at discharge yesterday, her BUN was 43, creatinine 1.2). Glucose 212. Troponin not detectable. BNP 127 (at discharge yesterday, her BNP was 230). CBC shows a white count of 11.6, hemoglobin 12.5, normal MCV, normal platelet count of 267. No urinalysis was done. On the last admission, the pleural fluid that was removed by thoracentesis on the last admission was bloody; and there is no growth from that even as of yet. On the last admission, she had urinalysis that was positive for bacteria, and the urine culture on the last admission grew E. coli. Chest x-ray today: New right IJ line is placed, there is no pneumothorax, there is a moderate left-sided pleural effusion, there is bibasilar infiltrates, there is mild vascular congestion. No EKG was done. IMPRESSION/DIAGNOSES 1. Chronic obstructive pulmonary disease with wheezing, continuation of the last exacerbation. 2. Continued infiltrate on chest x-ray with the recent pneumonia. 3. Recurrent congestive heart failure with pulmonary vascular congestion, leg edema and recurrence of pleural effusion. 4. Recurrent pleural effusion, S/P recent thoracentesis; it has reaccumulated. 5. Obesity. 6. Diabetes, on insulin. 7. Stroke with significant paralysis causing marked weakness and inability to ambulate. 8. Continued heavy tobacco abuse despite new oxygen therapy being ordered for use in the house. The described that she was non-complaint with wearing the nasal cannula anyway. PLAN 1. Admit the patient to inpatient status on telemetry. 2. Restart her antibiotics via IV. 3. Restart IV diuretics. 4. Follow her daily weight, I's and O's, electrolytes, magnesium and renal function. 5. Follow her BMP daily. 6. Culture her blood if there is a fever. 7. Obtain a urinalysis to determine if bacteriuria has cleared. 8. Begin a diabetic diet, fingerstick glucoses checks, sliding scale insulin coverage and her Lantus evening insulin dose. 9. The has already indicated that he now realizes he is unable to care for her and is requesting that she be placed in a prison facility after this discharge. 10. Continue with her supplemental oxygen. 11. Continue with steroids and nebulizers and symptomatic treatment. 12. Continue her Mucinex. 13. Evaluate her stool for C. difficile. If this is negative, then begin Imodium and continue her Florastor for bowel health. CODE STATUS: FULL CODE, EXCEPT DO NOT INTUBATE. DVT PROPHYLAXIS: SCDs. ATTESTATION: Patient is expected to be discharged or transferred to another facility within 96 hours: Yes. TD: 07/07/2018 19:47 BRAN
[2018-07-07] MEDS: SACCHAROMYCES BOULARDII 250 MG CAPSULE PO SCH (21:04)
[2018-07-07] MEDS: FUROSEMIDE 20 MG/2 ML VIAL IVP SCH (21:04)
[2018-07-07] MEDS: INSULIN ASPART 300 UNIT/3 ML PEN SUBQ SCH (21:05)
[2018-07-07] MEDS: INSULIN GLARGINE 300 UNIT/3 ML PEN SUBQ SCH (21:06)
[2018-07-07] MEDS: ATORVASTATIN 10 MG TABLET PO SCH (21:07)
[2018-07-07] MEDS: guaiFENesin 600 MG TABLET PO SCH (21:07)
[2018-07-07] MEDS: NYSTATIN POWDER 15 GM TOP SCH (21:08)
[2018-07-07] MEDS: methylPREDNISolone SUCCINATE 40 MG/ML VIAL IVP SCH (21:08)
[2018-07-07] MEDS: MIRTAZAPINE 15 MG TABLET PO SCH (21:08)
[2018-07-07] MEDS: LISINOPRIL 20 MG TABLET PO SCH (21:08)
[2018-07-07] MEDS: levETIRAcetam 250 MG TABLET PO SCH (21:08)
[2018-07-07] MEDS: GABAPENTIN 300 MG CAPSULE PO SCH (21:09)
[2018-07-07] MEDS: SODIUM CHLORIDE FLUSH 0.9% 10 ML SYRINGE IVP PRN (21:29)
--- NOTE | 2018-07-08 01:27 | XRAY Report ---
Reason: central line righIJ placement or complication Procedure Date: 07/08/2018 Accession Number: [id number] / [id number] Procedure: XR - Chest 1 View X-Ray CPT Code: 70267 FULL RESULT: EXAM: CHEST RADIOGRAPHY EXAM DATE: 07/08/2018 12:50 AM. CLINICAL HISTORY: Central line right IJ placement or complication. COMPARISON: CHEST 1 VIEW 07/07/2018 5:03 PM. TECHNIQUE: 1 view. FINDINGS: Lungs/Pleura: Interval development of mild interstitial edema. There are small bilateral pleural effusions. No pneumothorax. Mediastinum: Normal heart size. Intimal calcifications noted at the aortic arch. Other: Right IJ central venous catheter placed to mid SVC. IMPRESSION: 1. Mild interstitial edema, increased since the comparison exam. 2. Small bilateral pleural effusions. 3. Right IJ central line placed to mid SVC. RADIA
[2018-07-08 06:38] LABS: BASOPHILS % (AUTO) 0.6 %; HGB - HEMOGLOBIN 12.1 g/dL (12.0-16.0); LYMPHOCYTES # (AUTO) 0.5 10^3/uL (1.5-3.5); LYMPHOCYTES % (AUTO) 5.6 %; MEAN CORPUSCULAR HEMOGLOBIN 29.6 pg (27.0-31.0); MEAN CORPUSCULAR HGB CONC 33.3 g/dL (32.0-36.0); MEAN CORPUSCULAR VOLUME 88.9 fL (81.0-99.0); MEAN PLATELET VOLUME 8.5 fL (7.9-10.8); MONOCYTES # (AUTO) 0.2 10^3/uL (0.0-1.0); MONOCYTES % (AUTO) 2.8 %; NEUTROPHILS # (AUTO) 7.8 10^3/uL (1.5-6.6); PLT - PLATELET COUNT 248 10^3/uL (130-450); RED BLOOD COUNT 4.08 10^6/uL (4.20-5.40); RED CELL DISTRIBUTION WIDTH 14.7 % (12.0-15.0); WHITE BLOOD COUNT 8.6 x10^3/uL (4.8-10.8)
[2018-07-08 06:48] LABS: CALCIUM 8.2 mg/dL (8.5-10.3); CREATININE 1.1 mg/dL (0.4-1.0)
[2018-07-08] MEDS: SODIUM CHLORIDE FLUSH 0.9% 10 ML SYRINGE IVP PRN ×6 (06:51→21:21)
[2018-07-08] MEDS: CIPROFLOXACIN 400 MG/200 ML 200 ML IV SCH ×2 (06:51→17:59)
[2018-07-08] MEDS: SODIUM CHLORIDE FLUSH 0.9% 10 ML SYRINGE IVP SCH ×3 (07:04→17:56)
[2018-07-08] MEDS: FUROSEMIDE 20 MG/2 ML VIAL IVP SCH ×2 (07:05→13:46)
[2018-07-08] MEDS: GABAPENTIN 300 MG CAPSULE PO SCH ×3 (07:05→21:08)
[2018-07-08] MEDS: PANTOPRAZOLE 40 MG TABLET PO SCH (07:05)
[2018-07-08] MEDS ORDERED: POLYETHYLENE GLYCOL 3350 17 GM PACKET PO SCH (09:00)
[2018-07-08] MEDS ORDERED: amLODIPine 5 MG TABLET PO SCH (09:00)
[2018-07-08] MEDS: methylPREDNISolone SUCCINATE 40 MG/ML VIAL IVP SCH ×2 (09:12→21:07)
[2018-07-08] MEDS: SACCHAROMYCES BOULARDII 250 MG CAPSULE PO SCH ×2 (09:12→17:47)
[2018-07-08] MEDS: levETIRAcetam 250 MG TABLET PO SCH ×2 (09:13→20:06)
[2018-07-08] MEDS: OXYBUTYNIN 5MG TABLET PO SCH (09:14)
[2018-07-08] MEDS: guaiFENesin 600 MG TABLET PO SCH ×2 (09:14→20:08)
[2018-07-08] MEDS: LISINOPRIL 20 MG TABLET PO SCH ×2 (09:14→20:09)
[2018-07-08] MEDS: NICOTINE 21 MG PATCH TOP SCH (09:14)
[2018-07-08] MEDS: ASPIRIN EC 325 MG TABLET PO SCH (09:14)
[2018-07-08] MEDS: CLOPIDOGREL 75 MG TABLET PO SCH (09:14)
[2018-07-08] MEDS: NYSTATIN POWDER 15 GM TOP SCH ×2 (09:15→21:08)
[2018-07-08] MEDS: INSULIN ASPART 300 UNIT/3 ML PEN SUBQ SCH ×4 (09:16→21:14)
[2018-07-08] MEDS ORDERED: ALBUTEROL NEB 2.5 MG/3 ML INH PRN (10:39)
[2018-07-08] MEDS: BUDESONIDE 0.5 MG/2 ML NEB INH SCH ×2 (13:21→20:12)
[2018-07-08] MEDS: FORMOTEROL FUMARATE NEB 20 MCG/2 ML INH SCH ×2 (13:22→20:12)
[2018-07-08] MEDS: IPRATROPIUM 0.2 MG/ML NEB INH SCH ×4 (13:22→20:12)
--- NOTE | 2018-07-08 17:13 | PROVIDER PROGRESS NOTE ---
Assessment/Plan - Problem List (1) Acute exacerbation of COPD with asthma Assessment/Plan: Continue nebs and steroids. Continue Mucinex. Continue O2 if needed. Continue Nicotine patch. (2) CAP (community acquired pneumonia) Qualifiers: Assessment/Plan: Continue iv Zithromax and Cipro, to finish the course of antibiotics which was planned at the last [facility] 2 day ago. DShe has 3 more days planned. Continue Mucinex. (3) Pleural effusion Assessment/Plan: Reaccumulation of pleural fluid by admission CXR was seen. Will obtain evaluation for thoracentesis, with a decubitus CXR. The thoracentesis done on last admissio releaved her SOB quickly. (4) Acute on chronic diastolic congestive heart failure Assessment/Plan: Continue with gentle diuresis. Will stop diuretic tomorrow in order not to worsen her LV outflow tract obstruction, from IHSS, which was found on the last admission (Echo dome 07/02/18). (5) IHSS (idiopathic hypertrophic subaortic stenosis) Assessment/Plan: As in #4 above. Also, afterload reducers will increase the LVOT gradient, therefore will stop the Amlodipine and maximize B-1 selective B-alexis or use Cardizem (both for their negative inotropic and HR-controlling effects), for her BP control. 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 (7) Diarrhea due to drug Assessment/Plan: C. diff was neg. Will add Imodium and continue Florastor. Stop Miralax. (8) Left hemiplegia Assessment/Plan: Continue her post-stroke management: ASA, Plavix, statin. Physical Therapy was planned with Home Health for strengthening, but the now admits he cannot handle her. Will order PT eval starting tomorrow, now that the respiratory status has stabilized. The now agrees that she should go to SNF for PT aftrer this [facility]. Social Work was informed of this new plan. (9) Ovarian mass Assessment/Plan: She has an "inoperable mass" according to the daughter, who is a PA. There is pain in the LLQ with any attempts at weight bearing on that weak L leg. PT to try to work with patient, was requested. (10) Tobacco abuse Assessment/Plan: The patient is focused on when she can have her next cigarette when she is at home. The and daughter have agreed to allow her to smoke, but no more than 1 cigarette per hour. Will continue Nicotine patch while here and at SNF. - Current Meds Current Meds: Current Medications Generic Name Dose Route Start Last Admin Trade Name Nina PRN Reason Stop Dose Admin Amlodipine Besylate 10 mg 07/08/18 09:00 07/08/18 09:12 Norvasc PO 10 mg DAILY DELMY Administration Aspirin 325 mg 07/08/18 09:00 07/08/18 09:14 Ecotrin PO 325 mg DAILY DELMY Administration Atorvastatin Calcium 20 mg 07/07/18 21:00 07/07/18 21:07 Lipitor PO 20 mg QPM DELMY Administration Budesonide 0.5 mg 07/08/18 07:00 07/08/18 13:21 Pulmicort INH Not Given RTBID DELMY Clopidogrel Bisulfate 75 mg 07/08/18 09:00 07/08/18 09:14 Plavix PO 75 mg DAILY DELMY Administration Formoterol Fumarate 20 mcg 07/08/18 07:00 07/08/18 13:22 Perforomist INH Not Given RTBID DELMY Furosemide 20 mg 07/07/18 20:00 07/08/18 13:46 Lasix Inj 20mg Vial IVP 20 mg BIDDIURETIC DELMY Administration Gabapentin 600 mg 07/07/18 22:00 07/08/18 13:46 Neurontin PO 600 mg TID DELMY Administration Guaifenesin 600 mg 07/07/18 21:00 07/08/18 09:14 Mucinex PO 600 mg BID DELMY Administration Azithromycin 500 mg/ Sodium 250 mls @ 250 mls/hr 07/07/18 19:00 07/07/18 21:39 Chloride IV Infused Q24H DELMY Infusion Ciprofloxacin 200 mls @ 200 mls/hr 07/07/18 19:00 07/08/18 08:05 Cipro 400 Mg/200 Ml IV Infused Q12H DELMY Infusion Insulin Aspart 1 - 9 unit 07/07/18 21:00 07/08/18 12:11 Novolog SUBQ 3 unit 0800,1200,1700,2100 DELMY Administration Protocol Insulin Glargine 10 unit 07/07/18 21:00 07/07/18 21:06 Lantus Solostar SUBQ 10 unit QPM DELMY Administration Ipratropium [place] 0.5 mg 07/08/18 07:00 07/08/18 15:00 Atrovent INH Not Given RTQID DELMY Levetiracetam 750 mg 07/07/18 21:00 07/08/18 09:13 Keppra PO 750 mg BID DELMY Administration Lisinopril 20 mg 07/07/18 21:00 07/08/18 09:14 Zestril PO 20 mg BID DELMY Administration Methylprednisolone 40 mg 07/07/18 21:00 07/08/18 09:12 Solu-Medrol (40mg Vial) IVP 40 mg BID DELMY Administration Mirtazapine 15 mg 07/07/18 21:00 07/07/18 21:08 Remeron PO 15 mg QPM DELMY Administration Nicotine 1 patch 07/08/18 09:00 07/08/18 09:14 Nicoderm TOP 1 patch DAILY DELMY Administration Nystatin 1 applic 07/07/18 21:00 07/08/18 09:15 Nystop TOP 1 applic BID DELMY Administration Oxybutynin Chloride 2.5 mg 07/08/18 09:00 07/08/18 09:14 Ditropan PO 2.5 mg DAILY DELMY Administration Pantoprazole Sodium 40 mg 07/08/18 07:00 07/08/18 07:05 Protonix PO 40 mg QDAC DELMY Administration Polyethylene Glycol 17 gm 07/08/18 09:00 07/08/18 09:15 Miralax PO 17 gm DAILY DELMY Administration Saccharomyces Boulardii 250 mg 07/07/18 19:16 07/08/18 09:12 Florastor PO 250 mg BIDWM DELMY Administration Sodium Chloride 10 ml 07/07/18 15:38 07/08/18 06:51 Normal Saline Flush 0.9% IVP 10 ml PRN PRN Administration NEEDED PER PROVIDER ORDERS Sodium Chloride 10 ml 07/07/18 17:00 07/08/18 09:12 Normal Saline Flush 0.9% IVP 10 ml 0100,0900,1700 DELMY Administration - Lab Result Fish Bone Diagrams: 07/08/18 06:05 07/08/18 06:05 - Additional Planning My Orders: My Active Orders 07/07/18 17:00 Sodium Chloride Flush 0.9% [Normal Saline Flush 0.9%] 10 ml IVP 0100,0900,1700 07/07/18 17:37 UA, MICROSCOPIC & CULT IF [URIN] Stat 07/07/18 19:00 Miscellaenous Nursing Order [RC] QSHIFT Azithromycin Inj [Zithromax Inj] 500 mg Sodium Chloride 0.9% [Normal Saline 0.9%] 250 ml IV Q24H Ciprofloxacin 400 mg/200 ml [Cipro 400 mg/200 ml] 200 ml IV Q12H 07/07/18 19:14 Nebulizer/MDI Tx. [RC] PRN 07/07/18 19:16 Blood Glucose Checks - Eating [RC] 0800,1200,1700,2100 Initiate Hypoglycemia Protocol [RC] .protocol Saccharomyces Boulardii [Florastor] 250 mg PO BIDWM 07/07/18 20:00 FUROSEMIDE INJ 20mg VIAL [LASIX INJ 20mg VIAL] 20 mg IVP BIDDIURETIC 07/07/18 21:00 Atorvastatin [Lipitor] 20 mg PO QPM Insulin Aspart [NovoLOG] 1 - 9 unit SUBQ 0800,1200,1700,2100 Insulin Glargine [Lantus Solostar] 10 unit SUBQ QPM Lisinopril [Zestril] 20 mg PO BID Mirtazapine [Remeron] 15 mg PO QPM Nystatin [Nystop] 1 applic TOP BID guaiFENesin [Mucinex] 600 mg PO BID levETIRAcetam [Keppra] 750 mg PO BID methylPREDNISolone SUCCINATE [SOLU-Medrol (40MG VIAL)] 40 mg IVP BID 07/07/18 22:00 Gabapentin [Neurontin] 600 mg PO TID 07/07/18 Dinner Carb-controlled Diet [DIET] 07/08/18 07:00 Budesonide [Pulmicort] 0.5 mg INH RTBID Formoterol Fumarate [Perforomist] 20 mcg INH RTBID Ipratropium [Atrovent] 0.5 mg INH RTQID Pantoprazole [Protonix] 40 mg PO QDAC 07/08/18 09:00 Aspirin EC [Ecotrin] 325 mg PO DAILY Clopidogrel [Plavix] 75 mg PO DAILY Nicotine 21 mg Patch [Nicoderm] 1 patch TOP DAILY Oxybutynin [Ditropan] 2.5 mg PO DAILY Polyethylene Glycol 3350 [Miralax] 17 gm PO DAILY amLODIPine [Norvasc] 10 mg PO DAILY 07/08/18 10:39 Albuterol 2.5 mg INH RTQ4H PRN 07/09/18 05:00 BMP - BASIC METABOLIC PANEL [CHEM] DAILYLAB CBC - COMP BLD CT W/AUTO DIFF [HEME] DAILYLAB 07/10/18 05:00 BMP - BASIC METABOLIC PANEL [CHEM] DAILYLAB CBC - COMP BLD CT W/AUTO DIFF [HEME] DAILYLAB Subjective - Subjective Patient Reports: Resting Comfortably, No Complaints Objective Vital Signs: Vital Signs - 24 hr 07/07/18 07/07/18 07/07/18 18:15 18:40 20:05 Temperature Heart Rate 74 Heart Rate [ Brachial] Heart Rate [ Radial] Respiratory 16 Rate Blood Pressure [Left Brachial artery] Blood Pressure 169/94 H 177/49 H [Right Brachial artery] Blood Pressure [Right Radial artery] O2 Saturation 07/07/18 07/08/18 07/08/18 23:30 00:00 04:00 Temperature 36.8 C 36.8 C Heart Rate Heart Rate [ 84 81 72 Brachial] Heart Rate [ Radial] Respiratory 18 18 Rate Blood Pressure 149/81 H 117/52 L [Left Brachial artery] Blood Pressure [Right Brachial artery] Blood Pressure [Right Radial artery] O2 Saturation 94 96 95 07/08/18 07/08/18 07/08/18 07:47 08:22 11:00 Temperature 36.8 C 36.7 C Heart Rate 66 Heart Rate [ 66 66 Brachial] Heart Rate [ Radial] Respiratory 22 20 20 Rate Blood Pressure [Left Brachial artery] Blood Pressure [Right Brachial artery] Blood Pressure 184/58 H 161/53 H [Right Radial artery] O2 Saturation 94 94 07/08/18 07/08/18 13:30 16:24 Temperature 36.7 C 36.7 C Heart Rate 66 Heart Rate [ Brachial] Heart Rate [ 63 Radial] Respiratory 20 20 Rate Blood Pressure [Left Brachial artery] Blood Pressure [Right Brachial artery] Blood Pressure 174/62 H [Right Radial artery] O2 Saturation 94 93 Oxygen O2 Source [With Activity] Nasal cannula O2 Source Nasal cannula I&O (Last 24 Hrs): Intake and Output Totals x24h 07/06/18 07/07/18 07/08/18 23:59 23:59 23:59 Intake Total 770 420 Balance 770 420 General: Other (Sleepy) HEENT: Mucous membr. moist/pink Neck: Supple, Other (Obese) Neuro: Other (L sided weakness) Cardiovascular: Regular rate, Other (2/6 systolic murmur at base, no RV heave) Respiratory: No respiratory distress, Breath sounds nml, Other (Diminished BS at bases) Abdomen: Soft, No tenderness, Other (Obese with pannus) Extremities: Other (2+ edema to knees (dowm from 4+ edema to posterior thighs yesterday)) - Results Results: Laboratory Results WBC 8.6 x10^3/uL (4.8-10.8) 07/08/18 06:05 RBC 4.08 10^6/uL (4.20-5.40) L 07/08/18 06:05 Hgb 12.1 g/dL (12.0-16.0) 07/08/18 06:05 Hct 36.3 % (37.0-47.0) L 07/08/18 06:05 MCV 88.9 fL (81.0-99.0) 07/08/18 06:05 MCH 29.6 pg (27.0-31.0) 07/08/18 06:05 MCHC 33.3 g/dL (32.0-36.0) 07/08/18 06:05 RDW 14.7 % (12.0-15.0) 07/08/18 06:05 Plt Count 248 10^3/uL (130-450) 07/08/18 06:05 MPV 8.5 fL (7.9-10.8) 07/08/18 06:05 Neut # (Auto) 7.8 10^3/uL (1.5-6.6) H 07/08/18 06:05 Lymph # (Auto) 0.5 10^3/uL (1.5-3.5) L 07/08/18 06:05 Dane # (Auto) 0.2 10^3/uL (0.0-1.0) 07/08/18 06:05 Eos # (Auto) 0.0 10^3/uL (0.0-0.7) 07/08/18 06:05 Baso # (Auto) 0.0 10^3/uL (0.0-0.1) 07/08/18 06:05 Absolute Nucleated RBC 0.01 x10^3/uL 07/08/18 06:05 Nucleated RBC % 0.1 /100WBC 07/08/18 06:05 Sodium 136 mmol/L (135-145) 07/08/18 06:05 Potassium 4.6 mmol/L (3.5-5.0) 07/08/18 06:05 Chloride 105 mmol/L (101-111) 07/08/18 06:05 Carbon Dioxide 28 mmol/L (21-32) 07/08/18 06:05 Anion Gap 3.0 (6-13) L 07/08/18 06:05 BUN 36 mg/dL (6-20) H 07/08/18 06:05 Creatinine 1.1 mg/dL (0.4-1.0) H 07/08/18 06:05 Estimated GFR (MDRD) 49 (>89) L 07/08/18 06:05 Glucose 198 mg/dL (70-100) H 07/08/18 06:05 Calcium 8.2 mg/dL (8.5-10.3) L 07/08/18 06:05 Troponin I < 0.04 ng/mL (<0.49) 07/07/18 16:30 B-Natriuretic Peptide 127 pg/mL (5-100) H 07/07/18 16:30
[2018-07-08] MEDS ORDERED: LOPERAMIDE 2 MG CAPSULE PO PRN (18:13)
[2018-07-08] MEDS: AZITHROMYCIN INJ 500 MG in SODIUM CHLORIDE 0.9% 250 ML IV SCH (18:24)
[2018-07-08] MEDS: ATORVASTATIN 10 MG TABLET PO SCH (20:06)
[2018-07-08] MEDS: MIRTAZAPINE 15 MG TABLET PO SCH (21:08)
[2018-07-08] MEDS: INSULIN GLARGINE 300 UNIT/3 ML PEN SUBQ SCH (21:10)
[2018-07-09 00:13] LABS: BILIRUBIN,URINE NEGATIVE (NEGATIVE); GLUCOSE, URINE (UA) 250 mg/dL (NEGATIVE); KETONES,URINE (UA) NEGATIVE (NEGATIVE); LEUKOCYTE ESTERASE, URINE NEGATIVE (NEGATIVE); NITRITE,URINE NEGATIVE (NEGATIVE); OCCULT BLOOD,URINE SMALL (NEGATIVE); PROTEIN,URINE >=300 mg/dL (NEGATIVE); UROBILINOGEN,URINE 0.2 (NORMAL) E.U./dL (NORMAL)
[2018-07-09 00:17] LABS: CLARITY,URINE HAZY (CLEAR)
[2018-07-09 00:37] LABS: BACTERIA,URINE Few /HPF (None Seen); RBC,URINE 0-5 /HPF (0-5); SQUAMOUS EPITHELIAL CELL,UR FEW Squamous (<= Few); YEAST,URINE PRESENT
[2018-07-09] MEDS: SODIUM CHLORIDE FLUSH 0.9% 10 ML SYRINGE IVP SCH ×2 (01:23→10:21)
[2018-07-09] MEDS: ISOSORBIDE MONONITRATE ER 30 MG TABLET PO SCH ×2 (01:25→10:20)
[2018-07-09 06:08] LABS: BASOPHILS % (AUTO) 0.1 %; HGB - HEMOGLOBIN 11.9 g/dL (12.0-16.0); LYMPHOCYTES # (AUTO) 0.7 10^3/uL (1.5-3.5); LYMPHOCYTES % (AUTO) 6.8 %; MEAN CORPUSCULAR HEMOGLOBIN 29.1 pg (27.0-31.0); MEAN CORPUSCULAR HGB CONC 32.8 g/dL (32.0-36.0); MEAN CORPUSCULAR VOLUME 88.6 fL (81.0-99.0); MEAN PLATELET VOLUME 8.5 fL (7.9-10.8); MONOCYTES # (AUTO) 0.3 10^3/uL (0.0-1.0); NEUTROPHILS % (AUTO) 90.1 %; PLT - PLATELET COUNT 267 10^3/uL (130-450); RED BLOOD COUNT 4.09 10^6/uL (4.20-5.40); RED CELL DISTRIBUTION WIDTH 14.6 % (12.0-15.0)
[2018-07-09 06:22] LABS: CALCIUM 8.2 mg/dL (8.5-10.3)
[2018-07-09] MEDS: PANTOPRAZOLE 40 MG TABLET PO SCH (06:44)
[2018-07-09] MEDS: GABAPENTIN 300 MG CAPSULE PO SCH ×2 (06:44→14:03)
[2018-07-09] MEDS: FUROSEMIDE 20 MG/2 ML VIAL IVP SCH (06:45)
[2018-07-09] MEDS: SODIUM CHLORIDE FLUSH 0.9% 10 ML SYRINGE IVP PRN (06:46)
[2018-07-09] MEDS: CIPROFLOXACIN 400 MG/200 ML 200 ML IV SCH (06:58)
[2018-07-09] MEDS ORDERED: diltiaZEM CD 120 MG CAPSULE PO SCH (09:00)
--- NOTE | 2018-07-09 09:15 | XRAY Report ---
Reason: Decubitus film to evaluate the pleural effusion Procedure Date: 07/09/2018 Accession Number: [id number] / [id number] Procedure: XR - Chest 1 View X-Ray CPT Code: 07619 FULL RESULT: EXAM: CHEST RADIOGRAPHY EXAM DATE: 07/09/2018 08:42 AM. CLINICAL HISTORY: Pleural effusion. Evaluate. COMPARISON: 07/08/2018. 07/07/2018. TECHNIQUE: 1 view. FINDINGS: Lungs/Pleura: Portions of the left hemithorax are obscured. Small free flowing left pleural effusion. Small right pleural effusion. Bibasilar opacities. Mediastinum: Heart size and mediastinal contour are unchanged. Aortic atherosclerosis. Other: Right IJ catheter is obscured. IMPRESSION: 1. Small left pleural effusion. RADIA
[2018-07-09] MEDS: INSULIN ASPART 300 UNIT/3 ML PEN SUBQ SCH ×2 (09:49→11:21)
[2018-07-09] MEDS: NICOTINE 21 MG PATCH TOP SCH (10:20)
[2018-07-09] MEDS: methylPREDNISolone SUCCINATE 40 MG/ML VIAL IVP SCH (10:20)
[2018-07-09] MEDS: LISINOPRIL 20 MG TABLET PO SCH (10:20)
[2018-07-09] MEDS: levETIRAcetam 250 MG TABLET PO SCH (10:20)
[2018-07-09] MEDS: SACCHAROMYCES BOULARDII 250 MG CAPSULE PO SCH (10:20)
[2018-07-09] MEDS: NYSTATIN POWDER 15 GM TOP SCH (10:21)
[2018-07-09] MEDS: CLOPIDOGREL 75 MG TABLET PO SCH (10:21)
[2018-07-09] MEDS: guaiFENesin 600 MG TABLET PO SCH (10:21)
[2018-07-09] MEDS: ASPIRIN EC 325 MG TABLET PO SCH (10:21)
[2018-07-09] MEDS: OXYBUTYNIN 5MG TABLET PO SCH (10:21)
[2018-07-09] MEDS ORDERED: ZINC OXIDE 20% OINT 28.35 GM TUBE TOP PRN (10:22)
[2018-07-09] MEDS: BUDESONIDE 0.5 MG/2 ML NEB INH SCH (10:30)
[2018-07-09] MEDS: FORMOTEROL FUMARATE NEB 20 MCG/2 ML INH SCH (10:30)
[2018-07-09] MEDS: IPRATROPIUM 0.2 MG/ML NEB INH SCH ×2 (10:30→15:00)
--- NOTE | 2018-07-09 14:02 | Discharge Plan ---
"Discharge Plan for SNF / TAI - Discharge Plan And Transition Orders Disposition: 03 SNF DC/Xfer Condition: Good Allergies and Adverse Reactions: Allergies Allergy/AdvReac Type Severity Reaction Status Date / Time coconut AdvReac Nausea Verified 07/03/18 11:47 - SNF / ASSISTED Transition Orders Admit to (Facility): [facility] Under the care of (Name): Belem Doe MD Discharge Diagnosis: 1. Community-acquired pneumonia 2. Resolved COPD exacerbation. 3. acute on chronic diastolic congestive heart failure (status post thoracocentesis with previous admission) 4. 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 Hypertension 6. Obesity 7. Type 2 diabetes mellitus, with complications, on long-term use of insulin 8. Tobacco abuser 9. Depression with anger Medicare Certification Statement: I certify that [facility] is medically necessary on a continuing basis for any of the conditions for which she/he is receiving care during hospitalization. Notify PCP of admission and forward orders to primary provider for signature. Weight on admission and: Daily Call PCP immediately if weight increases by: 2.2 kg Other Notification Orders: Call PCP immediately if patient develops dyspnea, chest pain/tightness or edema. House Bowel Program: Yes Additional Bowel Program Orders: If no BM after 2 days, nurse may give M.O.M. 30ml PO PRN and/or ducolax Supp 1 HI and/or MARIZA 250mg P.O., and/or senna 1-2 tabs PO. On day 3 nurse may give repeat above order until residents constipation is resolved. Annual Influenza Vaccine (between Apr 13 and November 10): Yes Two-step PPD per [facility] [id number] or approved exception documents: Yes Treatments & Other Orders: DuoNeb via nebulizer 4 times daily Oxygen Orders: Nasal cannula oxygen to keep O2 sat above 90% but below 92% Lab Tests or X-ray Orders: BMP and BNP July 16 Medication Orders: PLEASE REFER TO THE DISCHARGE MEDICATION LIST. - Medications New Prescriptions: Acetaminophen [Tylenol] 650 mg PO Q6H PRN #1 tab PRN Reason: Pain - Diet Type: No added sugar Texture: Regular Liquids: Thin May have monthly special meal: Yes - Therapies | Activity Therapy: Evaluation | Treat if indicated: Speech, PT, OT Rehabilitation Potential: Return to independent living Activity: Activity as Tolerated Weight Bearing: Full Weight Assistance Devices: Wheelchair, Walker Additional Instructions: She is a 73-year-old white female who is obese, diabetic, and has the residual of severe left-sided weakness from an old stroke, continues to smoke daily and has COPD. She also has diastolic congestive heart failure. She was just discharged July 06 for community-acquired pneumonia and COPD exacerbation. She required a thoracentesis. She returned on July 07 because of pharmacy was not open. She did not have any of her medications to take. As such she did not receive any diuretics, antibiotics, nebulizer treatments and went back into mild CHF, COPD exacerbation. To keep her calm, her family was giving her a cigarette an hour. She needs to finish her antibiotic therapy. Continue to be diuresed. Prior to admission she was able to transfer from laying to sitting. Stand and be weightbearing on her good right side. Transfer to a chair. Be wheeled to a toilet. Stand to be transferred to a toilet and do her activities with regards to hygiene. She was then able to be transferred back to wheelchair and to be bathe, fed, etc. With the admission for pneumonia and COPD exacerbation and diastolic congestive heart failure she is weak. She is unable to do the basic sit to transfer technique that she is able to do in the past. It is the family's goal that she get her strength back up again to be able to go from a laying to sitting position, standing position, standing one leg, transfer to a chair. Follow Up: See Dr. Belem Doe in follow-up when she leaves [facility] Insulin Orders - [facility] Basal | Correction | Custom Orders: Diagnosis: Diabetes Initiate hypo and hyperglycemia protocols for BG <70 and BG >375. May check BG PRN for signs/symptoms of dysglycemia. Frequency of BG checks: [AC/Meal/HS] Basal Insulin: [X] Lantus 100 units / ml inject subq as follows: [10 units SQ nightly] [] Other: [] Correction Insulin: - Select the type of insulin below [Choose: Humalog]100 units /ml insulin inject subq per orders indicate below [X] LOW DOSE [] MODERATE DOSE [] MODERATE/HIGH DOSE [] HIGH DOSE GB UNITS GB UNITS GB UNITS GB UNITS 61-140 0 UNITS 61-140 0 UNITS 61-140 0 UNITS 61-140 0 UNITS 141-175 1 UNITS 141-175 1 UNITS 141-175 2 UNITS 141-175 3 UNITS 176-225 2 UNITS 176-225 3 UNITS 176-225 4 UNITS 176-225 5 UNITS 226-275 3 UNITS 226-275 5 UNITS 226-275 6 UNITS 226-275 7 UNITS 276-325 4 UNITS 276-325 7 UNITS 276-325 8 UNITS 276-325 9 UNITS 326-375 5 UNITS 326-375 9 UNITS 326-375 10 UNITS 326-375 11 UNITS >375 CONTACT MD >375 CONTACT MD >375 CONTACT MD >375 CONTACT MD Custom Dosing: [Choose: Novolog/Humalog] 100 units/ml Insulin inject subq as follows: GB Units 61-140 [] Units 141-175 [] Units 176-225 [] Units 226-275 [] Units 276-325 []Units 326-375 [] Units >375 Contact MD"
[2018-07-09] MEDS ORDERED: PETROLATUM WHITE 5 GM PACKET TOP ONE (14:24)
[2018-07-09 15:51] VITALS: BP 155/57
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
--- NOTE | 2018-07-09 20:37 | DISCHARGE SUMMARY ---
Physician: Violetta Williamson MD DATE OF ADMISSION: 07/07/2018 DATE OF DISCHARGE: 07/09/2018 DISCHARGE DIAGNOSES: 1. Chronic obstructive pulmonary disease exacerbation. 2. Community-acquired pneumonia. 3. Morbid obesity. 4. Left hemiplegia due to old stroke. 5. Type 2 diabetes mellitus, controlled, with complications, on long-term use of insulin. 6. Tobacco abuse. 7. Acute on chronic diastolic congestive heart failure, [place] Heart Association class II. DISCHARGE MEDICATIONS: 1. Aspirin 325 mg daily. 2. Sucralfate 1 g p.o. before meals and at bedtime. 3. Tylenol 650 mg p.o. every 6 hours p.r.n. pain, fever, headache. 4. Albuterol via nebulizer every 4 hours as needed. 5. ProAir HFA inhaler two puffs every 4 hours as needed. 6. Amlodipine 10 mg daily. 7. Atorvastatin 20 mg daily. 8. Azithromycin 250 mg p.o. b.i.d. 9. Cipro 250 mg p.o. b.i.d. 10. Plavix 75 mg p.o. daily. 11. Diltiazem CD 120 mg p.o. daily. 12. Advair 254/52 puffs b.i.d. 13. Gabapentin 600 mg p.o. t.i.d. 14. Mucinex 600 mg p.o. b.i.d. 15. Lantus 10 units subcutaneous q.p.m. 16. Imdur 30 mg p.o. daily. 17. Levetiracetam 750 mg p.o. b.i.d. 18. Lisinopril 20 mg p.o. b.i.d. 19. Medrol Dosepak taper as instructed on package. 20. Remeron 15 mg p.o. q.p.m. 21. Nicotine patch 21 mg for 7 days, then 14 mg for 7 days, then 7 mg for 7 days. 22. Nystatin to intertriginous folds b.i.d. as needed. 23. Ditropan 2.5 mg daily. 24. Protonix 40 mg daily. 25. Spiriva 18 mcg capsules, 2 puffs inhaled b.i.d. PRINCIPAL PROCEDURES: 1. Chest x-ray 07/07/2018 with bilateral pleural effusions, increasing bilateral lower lung atelectasis or pneumonia. 2. Right IJ central line placement. 3. Chest x-rays on 07/07/2018, 07/08/2018, 07/09/2018 showing small flowing left pleural effusion, small right pleural effusion, bibasilar opacities. 4. Clostridium difficile by PCR and stool negative. HOSPITAL COURSE: This is an unfortunate 73-year-old white female who suffered a stroke a few years ago and has had a residual hemiplegia since then. acknowledges that her quality of life sharply deteriorated and she has become very angry and withdrawn person. To show her anger and displeasure she will refuse to speak to him at times. Nevertheless, he has been able to take care of her. She is able to come to a sitting position, stand after she has been sitting at the edge of the bed. Stand on the one good leg, transfer to a chair. He can then transfer her via wheelchair to bedside commode, eating, or to a shower. She came to the hospital on 07/02/2018, short of breath. The patient was so severely short of breath she was put on BiPAP. She was felt to have acute respiratory failure with hypercapnia from community-acquired pneumonia and chronic obstructive pulmonary disease exacerbation. She had a loculated pleural effusion resulting in thoracentesis. Pleural fluid culture was negative and no organisms or white cell count was seen. Urine did grow out Escherichia coli. Echocardiogram done during that admission showed maintain left ventricular ejection fraction, with probable diastolic dysfunction on physical exam. She was diuresed, treated with antibiotics, and discharge on 07/06/2018 to go home. She was discharged on Cipro and zithromax. Unfortunately, her prescriptions were sent to the pharmacy on the [facility]. The pharmacy was not open. The patient did not want her prescriptions transferred to another pharmacy because of cost. She went without prescriptions for close to 24 hours. In order to keep her calm and not angry she was given a cigarette every hour. She then returned short of breath about 24 hours later. She was more confused, had increasing cough, and in the emergency room was found to have worsening pulmonary congestion, bibasilar infiltrates, hypertensive, and hypoxic. She was treated with steroids, nebulizers, Lasix. She was incontinent of loose stool and C. difficile was negative. Hospital course consisted of resuming the medications she was supposed to on. She was given IV antibiotics, IV steroids, nebulizers, and her respiratory distress abated considerably. Chest x-ray showed a left pleural effusion, but when it was done in a decubitus fashion her pleural effusion was actually not as large as we thought it was on the last admission. She had a central line placed for antibiotics. Review of culture from her previous admission was done and not helpful. Her diabetes was not well controlled because of steroids. She remained around 280-243 during her stay on Lantus and sliding scale. She was transitioned from IV steroids to oral steroids at discharge. Repeat urinalysis was clear. She continues to have a residual hemiplegia from her old stroke. She is manifesting her depression/anger by refusing to cooperate with rehabilitation. says that she has been getting worse with her anger. She will refuse to speak to us, refused to speak to him, but have a long conversation on the phone with her daughter. Daughter was pretty blunt with her mom and asked her if she wanted to live or . The patient stated that she really did not know if she wanted to live or . Advanced care planning conversation was held with . The patient was in the room and silent and listened to our conversation. She has been told, as has her , that if she cannot get her strength back up, she may not be able to regain some of her independence that she already had it. She needed to make a decision about whether she wanted to work with physical therapy and improve her strength so that she could return to home or not. If she did not want to improve her strength, I asked if we could transition her palliative care, she was not sure and nor was her . She is transferred to shelter facility for continued rehabilitation. At discharge, she was awake, alert, watching TV. Refusing to speak to us, but did speak to her daughter on the phone. PHYSICAL EXAM: Temperature was 36.8, pulse rate was 65, blood pressure 155/57, blood pressure and she was 92% on 3 liters. She is a morbidly obese, white female. says that she had gotten down to 130 pounds when she was ill a few years ago and has been steadily gaining weight. She has diminished breath sounds at the bases, but no increased respiratory effort. No wheezing. No use of accessory muscles. She has a regular rate and rhythm. Abdomen is obese, soft, nondistended. She has resolving Anat intertrigo in her pannus, in her folds that has been treated with nystatin. There is no skin breakdown of decubitus ulcer or shins. She has a left hemiplegia. She is incontinent of urine. At discharge, her IJ line was removed. She does use her right arm for purposeful movement, to readjust herself in the bed and the sheets to make herself more comfortable. She is dyspneic with light exertion, cannot lie flat. When she coughs it is difficult for her to clear her secretions. Last bowel movement was 07/09/2018, today. She has large legs with no pitting. She is transferred in stable condition. It is hoped that she will continue her rehabilitation so that she can return to home. That is the expectation of her and daughter. She will need further advanced care planning discussions to decide she wants to transition to palliative care in the outpatient setting. Greater than 30 minutes was spent coordinating discharge. TD: 07/09/2018 19:12 BRAN
== END 2018-07-09 16:33 | DRG 190 ==
LOC: EDUNIT# → ED 10:40 → MS2 15:38
PROVIDERS: ADMIT Internal Medicine; ATTEND Specialist
PROC: 02HV33Z Insertion of Infusion Device into Superior Vena Cava, Percutaneous Approach (ICD-10-PCS; principal; 2018-07-07)
DX: J44.1 Chronic obstructive pulmonary disease with (acute) exacerbation (principal); J18.9 Pneumonia, unspecified organism; I50.9 Heart failure, unspecified; N39.0 Urinary tract infection, site not specified; J43.9 Emphysema, unspecified; D49.89 Neoplasm of unspecified behavior of other specified sites; E11.51 Type 2 diabetes mellitus with diabetic peripheral angiopathy without gangrene; I50.33 Acute on chronic diastolic (congestive) heart failure; I69.398 Other sequelae of cerebral infarction; G40.909 Epilepsy, unspecified, not intractable, without status epilepticus; K21.9 Gastro-esophageal reflux disease without esophagitis; F17.200 Nicotine dependence, unspecified, uncomplicated; I69.354 Hemiplegia and hemiparesis following cerebral infarction affecting left non-dominant side; I42.1 Obstructive hypertrophic cardiomyopathy; K52.1 Toxic gastroenteritis and colitis; E66.01 Morbid (severe) obesity due to excess calories; R09.02 Hypoxemia; I11.0 Hypertensive heart disease with heart failure; T36.8X6A Underdosing of other systemic antibiotics, initial encounter; T36.3X6A Underdosing of macrolides, initial encounter; T38.0X6A Underdosing of glucocorticoids and synthetic analogues, initial encounter; T48.6X6A Underdosing of antiasthmatics, initial encounter; Z91.120 Patient's intentional underdosing of medication regimen due to financial hardship; Y92.009 Unspecified place in unspecified non-institutional (private) residence as the place of occurrence of the external cause; E11.65 Type 2 diabetes mellitus with hyperglycemia; R82.71 Bacteriuria; R15.9 Full incontinence of feces; F32.9 Major depressive disorder, single episode, unspecified; R45.4 Irritability and anger; B37.2 Candidiasis of skin and nail; R32 Unspecified urinary incontinence; J44.0 Chronic obstructive pulmonary disease with (acute) lower respiratory infection; N83.9 Noninflammatory disorder of ovary, fallopian tube and broad ligament, unspecified; Z68.36 Body mass index [BMI] 36.0-36.9, adult; Z79.4 Long term (current) use of insulin; Z99.3 Dependence on wheelchair; Z72.0 Tobacco use; Z79.82 Long term (current) use of aspirin; Z79.899 Other long term (current) drug therapy; Z79.02 Long term (current) use of antithrombotics/antiplatelets; Z91.19 Patient's noncompliance with other medical treatment and regimen
CPT/HCPCS: 36415; 36556; 71045; 71046; 80048; 81001; 81003; 83880; 84484; 85025; 87086; 87493; 94640; 99283; 99284

== ENCOUNTER 2018-07-09 16:16 | Outpatient (CLI) | payer MEDICARE, OTHER | END 2018-07-09 16:17 | disposition home or self-care (01) | LOC: EMS 16:16 | PROVIDERS: ATTEND Surgery | DX: I69.959 Hemiplegia and hemiparesis following unspecified cerebrovascular disease affecting unspecified side (principal); E66.01 Morbid (severe) obesity due to excess calories; R52 Pain, unspecified | CPT/HCPCS: A0425; A0428 ==

== ENCOUNTER 2018-07-16 08:00 | Outpatient (CLI) | payer MEDICARE, OTHER ==
[2018-07-17 01:34] LABS: CALCIUM 8.7 mg/dL (8.5-10.3); CREATININE 1.3 mg/dL (0.4-1.0)
== END 2018-07-16 23:59 ==
LOC: LAB.R 08:00
DX: J90 Pleural effusion, not elsewhere classified (principal); I10 Essential (primary) hypertension; J44.9 Chronic obstructive pulmonary disease, unspecified
CPT/HCPCS: 80048; 83880

== ENCOUNTER 2018-07-19 12:30 | Outpatient (CLI) | payer MEDICARE, OTHER ==
--- NOTE | 2018-07-19 17:17 | CONSULTATION NOTE ---
Palliative Care Follow Up - Referral Referring Provider: Jose D Hendricks Time of Visit: 6552-1146 Referral setting: Al[facility] Facility Referral Reason: Failure to Thrive/COPD/Ovarian Cancer/Goals of Care - Information Sources Records reviewed: RN notes reviewed, Previous records reviewed History/Review of Systems obtained from: Patient, Family ( Bill at most of visit), Caregiver (consult with Dr. Hendricks) Exam limitations: Clinical condition (Patient presents with cognitive deficits/disorientated to time and STM issues) - History of Present Illness Update Brief HPI Update: This is a 73-year-old woman who has a fairly long complex history, with recent acute hospitalization now residing in a senior living facility with the goal for rehab. She was initially admitted to [facility] from 07/04-07/06, With pulmonary edema, hypercapnic respiratory failure, congestive heart failure and anasarca, and UTI. She was discharged home on 07/06, did not receive her medications, continue to smoke, and was rehospitalized the diagnosis of pneumonia and COPD exacerbation, diastolic heart failure, and transition of her senior living facility. This was as a result of patient's ongoing functional decline, and dependence on as she does have left hemiplegia as a result of stroke 5 years ago. Her other complicating factor, she does have an ovarian mass, she has had for several years, but was having increased pain and discomfort with this and did have a referral to the oncologist in February 2018. The pelvic mass was measured at 19 cm, she does have a known elevated CA 125 at 365 and 8 of 2017. Patient presents with ongoing anasarca, swelling in her upper extremities, taut lower extremities. She also has a obese and taut abdomen, and known if this is related to her heart failure, obesity, or possible ascites. She does have significant tenderness with any kind of palpation, she is most comfortable laying somewhat flat, but needs her head up related to her cough and shortness of breath. She has had difficulty the last few days in participating in rehab therapy because she has felt poorly. Palliative care has been consulted to follow-up with patient and regarding goals of care. Social History - Living Situation Living arrangement: At home Living Situation: With spouse/s.o. Support System: has been primary caregiver for last 5 years since patient's severe stroke, as patient has gained weight and has had functional decline has become more difficult. Has been very resistant for a variety of reasons of having help in the home, they do have a daughter who visits every few weeks but is not actively involved in her care. Patient has a history of being a hoarder, have been in home a couple of years ago clean but in some disrepair, has been is somewhat hesitant for having people in the home, but reassured. 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 Maday has a 14 yr old dog "Kenzie" that is quite sick and worries and misses it. Medications/Allergies - Medications Home Medications: Ambulatory Orders Medication Instructions Recorded Confirmed Aspirin [Aspirin EC] 325 mg PO DAILY 08/22/13 07/21/18 Sucralfate [Carafate] 1 gm PO ACHS 08/22/13 07/21/18 guaiFENesin [Mucinex] 600 mg PO BID #10 tablet 07/06/18 07/21/18 Acetaminophen [Tylenol] 650 mg PO Q6H PRN #1 tab 07/09/18 07/21/18 Albuterol 2.5 mg INH RTQ4H PRN neb 07/09/18 Amlodipine Besylate 10 mg PO DAILY #0 07/09/18 07/21/18 Clopidogrel [Plavix] 75 mg PO DAILY #0 07/09/18 07/21/18 Fluticasone/Salmeterol [Advair 2 each IH BID #45 blst.w.dev 07/09/18 07/21/18 250-50 Diskus] Gabapentin [Neurontin] 600 mg PO TID #0 07/09/18 07/21/18 Isosorbide Mononitrate ER [Imdur] 30 mg PO DAILY tablet 07/09/18 07/21/18 Lisinopril 20 mg PO BID #0 07/09/18 07/21/18 Mirtazapine [Remeron] 15 mg PO QPM #0 07/09/18 07/21/18 Nicotine 21 mg Patch [Nicoderm] 1 patch TOP DAILY patch 07/09/18 07/21/18 Nystatin [Nystop] 1 applic TOP BID bottle 07/09/18 07/21/18 Oxybutynin [Ditropan] 2.5 mg PO DAILY #0 07/09/18 07/21/18 Pantoprazole Sodium [Protonix] 40 mg PO QDAC #0 07/09/18 07/21/18 Tiotropium [place] [Spiriva] 2 puffs IH BID #45 cap.w.dev 07/09/18 07/21/18 diltiaZEM CD [Cardizem Cd] 120 mg PO DAILY capsule 07/09/18 07/21/18 levETIRAcetam [Levetiracetam] 750 mg PO BID #0 07/09/18 07/21/18 Insulin Glargine [Lantus Solostar] 15 unit SQ QPM 07/21/18 07/21/18 Ipratropium/Albuterol [Duoneb] 1 vial INH QID 07/21/18 07/21/18 - Allergies Allergies/Adverse Reactions: Allergies Allergy/AdvReac Type Severity Reaction Status Date / Time coconut AdvReac Nausea Verified 07/03/18 11:47 Review of Systems - Constitutional Constitutional: reports: Fatigue. denies: Fever, Chills - Eyes Eyes: reports: Vision loss - Ears, Nose & Throat Ears, Nose & Throat: reports: Hearing loss (mild), Hoarseness - Cardiovascular Cardiovascular: reports: Edema - Respiratory Respiratory: reports: Wheezing, SOB at rest, SOB with exertion - Gastrointestinal Gastrointestinal: reports: Abdominal pain, Abdominal distention, Good appetite - Genitourinary Genitourinary: reports: Incontinence - Musculoskeletal Musculoskeletal: reports: Stiffness, Limited range of motion, Muscle weakness, Transfer issues - Integumentary Integumentary: reports: Rash, Dryness - Neurological Neurological: reports: General weakness, Memory problems - Psychiatric Psychiatric: reports: Depression, Anxiety - Endocrine Endocrine: reports: Diabetes type 2 - Hematologic/Lymphatic Hematologic/Lymphatic: reports: Anemia, Recurrent infections (pneumonia) - All Other Systems All Other Systems: reports: Other (limited ROS with patient STM) Physical Exam - Vital Signs Temperature: 97.2 C Pulse Rate: 76 Respiratory Rate: 20 O2 Saturation: 97 (2 liters) - Physical Exam General Appearance: positive: Moderate distress, Anxious Eyes Bilateral: positive: Normal inspection ENT: positive: Other (edentulous) Neck: positive: Trachea midline, Other (thickened neck;full) Cardiovascular: positive: Regular rate & rhythm, Systolic murmur Respiratory: positive: Diminished throughout (anteriorly; patient with loose moist cough; unable to clear secretions) Abdomen: positive: Tenderness (with palpaltion throughout; taut; unable to discern if obese or added ascites/increased abd girth from fluid retention; patient feels it is more distended), Distended, Taut, Obese Skin: positive: Other (right arm with diffuse pink erythema throughout arm; tender to touch; no obvious openinings or wounds but reports had been difficult venous access in hospital; pooling edema in upper arm/elbow and forearm; left arm pooling with brusing in hand as well as arm; skin taut) Extremities: positive: Pedal edema (taut swollen lower extremities up to mid thigh area; painful in extremities to palpation; patient with known severe peripheral neuropathies as well as left sided central stroke syndrome) Neurologic/Psychiatric: positive: Disoriented to time, Slurred/abnml speech (difficult to understand), Depressed mood/affect, Flat affect, Other (Patient with fluctuating mood, does get easily overwhelmed, and will "shut down". She does intermittently refused to cooperate with care, questions need to be slow and purposeful for patient to participate.) Palliative Care - POLST Patient has POLST: Yes POLST Status: DNR, Selective Treatment Pain: Pain worsening, Location (Currently patient is on her gabapentin 600 mg 3 times daily, and Levetriracetam 750 mg BID. Patient has left-sided central pain syndrome, very tender to touch with sharp shooting pains. Patient also presents with vague abdominal ache and pain, reports worsening over the last several months. Patient does have known ovarian mass, and has reported increased discomfort.) Tiredness/Fatigue: Severe (7-10) Drowsiness/Sedation: Moderate (4-6) Depression: Severe (7-10) Anxiety: Severe (7-10) Dyspnea: Severe (7-10) Anorexia: Mild (1-3) Sleep: Variable sleep pattern Feelings of wellbeing/Perceived Quality of Life: Poor, Worsening Performance Status: Patient has been wheelchair-bound for the last 5 years since her original stroke, has been has always been primary caregiver, patient is a unable to stand and pivot transfer but her care has become more difficult. When she has been incontinent of bowel and bladder in the bed, has been very difficult to manage her as far as turning and. Care. With her first acute hospitalization and returned they were unable to manage her progressive deficits, she is currently in [facility], with the goal to focus on strengthening to see if can resume transfers. At this point this is been quite difficult, will follow-up if they are working on Moon transfers, at this juncture has been does not feel would be able to manage patient at home unless she was bedbound and with assistance - Palliative Care Discussion: Patient states "I want to go home, but do not think they will let me". Patient reports feeling poorly, does not see herself is getting better, when asked what she worries about most, it is her 14-year-old dog. She does understand Luis cannot care for her and her current state of weakness, but her reports this is fluctuating in her understanding, and gets angry at him for not being will take care of her at times as well as take her home. Patient has limited but some insight into the seriousness of her illness, she does understand she has an ovarian mass, and in the context of this they both just "been waiting for her to ". They have not really thought through what this might look like. The goal had been for the mcc stay, to allow for patient to stabilize and hopefully get stronger, though this was initially seen as possible as she was improving, she today presents is quite weak, more shortness of breath, anasarca, and increased abdominal pain and discomfort. I did meet with Luis, we did discuss in the context of the Maday's wishes to go home, if she would continue to do poorly would he be willing to consider transitioning her home with hospice. In discussion with Luis he felt like in previous conversations, he was asked to "pull the plug", and though Maday has limited ability but she has participated in the conversations and has been somewhat ambiguous in her goals and answers. Counseling provided what this might look like for them at home, if she is not able to do safe transfers, she will essentially be bedbound. Hospice can provide the bed, as well as have a Alaniz placed so as to ease caregiving distress regarding incontinence, provide bathing, and support for patient's ongoing decline. We did discuss given most likely her progressive cancer, that we will go ahead and follow-up work this up further, as well as her breathlessness at rest with her COPD, recurrent heart failure, and ongoing functional and cognitive decline she would meet hospice criteria. But it would need to be in the congruence with both patients and has been's goals for focus on comfort and staying at home. In conclusion we left it that would try and address some of her swelling, discomfort, if she continued to decline would reapproach with Maday going home with hospice for support with a focus on comfort. Results - Lab Results Lab and Imaging Results: Plan to add CA-125 to recently drawn labs and get further imaging to track ovarian cancer/mass Impression and Recommendations - Palliative Care Impression: This is a 73-year-old woman has severe underlying health problems including but not limited to severe COPD with recent exacerbation, recent pneumonia, diastolic heart failure and anasarca, diabetes, chronic kidney disease stage III, decreasing functional and cognitive status. Patient does have known ovarian mass, clinically assumed to be cancer, with increased pain, and abdominal tightness with possible ascites. Palliative care to provide support and definition of goals of care given the complexity of her situation. Recommendations/Counseling Done: 1. Anasarca. Consult with Dr. Hendricks regarding adding diuretics to see if can improve patient's current situation and comfort, recent labs reflect kidney function, will be adding torsemide and evaluate response. This is most likely multifactorial in origin, including recent steroid use, hospitalization with fluid overload, underlying heart failure. 2. Ovarian mass. Clinically presenting with elevated [id number] as ovarian cancer/pelvic tumor. Patient with increasing discomfort, possible ascites, patient with recent pleural effusion. Given this may impact prognosis and goals of care, will repeat Ca1 25 as well as further evaluation of pelvic mass, patient may need to be reevaluated for better pain control if escalates. 3. COPD exacerbation. Patient continues with moist cough, shortness of breath, now oxygen dependent. Patient has completed antibiotics and prednisone, currently on nebulizers only. Given her compromised state, mostly bedbound status, high risk for recurrence and concern for aspiration. 4. Advanced care planning. Patient's goals are to go home, though unable to elicit goals around end of life at this point in time. We did agree to focus on things that might make her feel better, as well as to get a further idea of what is happening with her tumor, she was in agreement with this. Patient does have a DOUG ST in place which is DNR/DNI. Counseling was provided to , regarding the patient continues to worsen, transitioning to hospice team if does want to bring her home. We will continue to monitor over the next week or 2, and revisit transition plan and goals of care based on patient's response and outcome of tests. Time Spent: 75 minutes with greater 50% of this done in counseling regarding goals of care, further information needed and barriers regarding meeting goals of care, and anticipatory guidance. Coordination of care with Dr. Hendricks and clinical staff.
== END 2018-07-19 12:31 | disposition home or self-care (01) ==
LOC: PC 12:30
PROVIDERS: ATTEND Nurse Practitioner Adult Health
DX: Z51.5 Encounter for palliative care (principal); R60.1 Generalized edema; N83.9 Noninflammatory disorder of ovary, fallopian tube and broad ligament, unspecified; J44.9 Chronic obstructive pulmonary disease, unspecified; Z66 Do not resuscitate; I69.354 Hemiplegia and hemiparesis following cerebral infarction affecting left non-dominant side; F17.200 Nicotine dependence, unspecified, uncomplicated; Z79.82 Long term (current) use of aspirin; E11.9 Type 2 diabetes mellitus without complications; Z79.4 Long term (current) use of insulin; F32.9 Major depressive disorder, single episode, unspecified; F41.9 Anxiety disorder, unspecified; Z99.3 Dependence on wheelchair
CPT/HCPCS: 99310

== ENCOUNTER 2018-07-22 06:28 | Outpatient (CLI) | payer MEDICARE, OTHER | END 2018-07-22 06:29 | disposition critical access hospital (66) | LOC: EMS 06:28 | PROVIDERS: ATTEND Surgery | DX: R06.02 Shortness of breath (principal); R60.9 Edema, unspecified | CPT/HCPCS: A0425; A0427 ==

== ENCOUNTER 2018-07-22 06:32 | Inpatient (IN) | payer MEDICARE, OTHER ==
[2018-07-22 07:02] LABS: BASOPHILS # (AUTO) 0.1 10^3/uL (0.0-0.1); BASOPHILS % (AUTO) 0.8 %; EOSINOPHILS # (AUTO) 0.2 10^3/uL (0.0-0.7); EOSINOPHILS % (AUTO) 2.5 %; HGB - HEMOGLOBIN 10.5 g/dL (12.0-16.0); LYMPHOCYTES # (AUTO) 0.7 10^3/uL (1.5-3.5); LYMPHOCYTES % (AUTO) 7.2 %; MEAN CORPUSCULAR HEMOGLOBIN 29.6 pg (27.0-31.0); MEAN CORPUSCULAR HGB CONC 33.4 g/dL (32.0-36.0); MEAN CORPUSCULAR VOLUME 88.6 fL (81.0-99.0); MEAN PLATELET VOLUME 9.1 fL (7.9-10.8); MONOCYTES # (AUTO) 0.4 10^3/uL (0.0-1.0); MONOCYTES % (AUTO) 4.8 %; NEUTROPHILS # (AUTO) 7.9 10^3/uL (1.5-6.6); NEUTROPHILS % (AUTO) 84.7 %; PLT - PLATELET COUNT 154 10^3/uL (130-450); RED BLOOD COUNT 3.55 10^6/uL (4.20-5.40); RED CELL DISTRIBUTION WIDTH 15.4 % (12.0-15.0); WHITE BLOOD COUNT 9.3 x10^3/uL (4.8-10.8)
[2018-07-22 07:08] LABS: INR 1.2 (0.8-1.2); PT - PROTHROMBIN TIME 13.8 secs (9.9-12.6)
[2018-07-22 07:10] LABS: ALBUMIN 2.9 g/dL (3.2-5.5); ALBUMIN/GLOBULIN RATIO 0.9 (1.0-2.2); BILIRUBIN,TOTAL 0.7 mg/dL (0.2-1.0); CALCIUM 8.5 mg/dL (8.5-10.3); CREATININE 1.2 mg/dL (0.4-1.0); TOTAL PROTEIN 6.3 g/dL (6.7-8.2)
--- NOTE | 2018-07-22 07:39 | ED Physician Documentation ---
PD HPI DYSPNEA - Stated complaint Stated Complaint: SOA - Chief complaint Chief Complaint: Resp - History obtained from History obtained from: Patient, Family - History of Present Illness Timing - onset: How many days ago (2) Timing - onset during: Rest Timing - duration: Days (2) Timing - details: Gradual onset, Still present Inciting event(s): URI Improved by: O2, Rest, Sitting up Worsened by: Exertion, Laying flat, Coughing Associated symptoms: Fever, Cough, Bilateral edema Similar symptoms before: Diagnosis (pnemonia/CHF/COPD) Recently seen: Admitted - Additional information Additional information: 73-year-old female with a history of diastolic heart failure, pneumonia, COPD and stroke with hemiparesis has recently been admitted in the hospital with pneumonia. She has been discharged to [facility] and over the past 2 days she has developed increasing shortness of breath. This morning she has a fever as well. Patient has also recently been diagnosed with an ovarian tumor and she has had discussion with the palliative care team to consider hospice care. She is still hoping to recover some strength so that she can help at home with her own care with her . Review of Systems Constitutional: reports: Fever Eyes: denies: Decreased vision Ears: denies: Ear pain Nose: denies: Rhinorrhea / runny nose, Congestion Throat: denies: Sore throat Cardiac: reports: Pedal edema. 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: Ovarian cancer : Chronic bladder infection HEENT: Chronic vision loss Psych: Depression Musculoskeletal: Hemiplegia Derm: Psoriasis - Past Surgical History Past Surgical History: Yes HEENT: Tonsil/Adenoidectomy - Present Medications Home Medications: Ambulatory Orders Medication Instructions Recorded Confirmed Aspirin [Aspirin EC] 325 mg PO DAILY 08/22/13 07/21/18 Sucralfate [Carafate] 1 gm PO ACHS 08/22/13 07/21/18 guaiFENesin [Mucinex] 600 mg PO BID #10 tablet 07/06/18 07/21/18 Acetaminophen [Tylenol] 650 mg PO Q6H PRN #1 tab 07/09/18 07/21/18 Albuterol 2.5 mg INH RTQ4H PRN neb 07/09/18 Amlodipine Besylate 10 mg PO DAILY #0 07/09/18 07/21/18 Clopidogrel [Plavix] 75 mg PO DAILY #0 07/09/18 07/21/18 Fluticasone/Salmeterol [Advair 2 each IH BID #45 blst.w.dev 07/09/18 07/21/18 250-50 Diskus] Gabapentin [Neurontin] 600 mg PO TID #0 07/09/18 07/21/18 Isosorbide Mononitrate ER [Imdur] 30 mg PO DAILY tablet 07/09/18 07/21/18 Lisinopril 20 mg PO BID #0 07/09/18 07/21/18 Mirtazapine [Remeron] 15 mg PO QPM #0 07/09/18 07/21/18 Nicotine 21 mg Patch [Nicoderm] 1 patch TOP DAILY patch 07/09/18 07/21/18 Nystatin [Nystop] 1 applic TOP BID bottle 07/09/18 07/21/18 Oxybutynin [Ditropan] 2.5 mg PO DAILY #0 07/09/18 07/21/18 Pantoprazole Sodium [Protonix] 40 mg PO QDAC #0 07/09/18 07/21/18 Tiotropium Pool [Spiriva] 2 puffs IH BID #45 cap.w.dev 07/09/18 07/21/18 diltiaZEM CD [Cardizem Cd] 120 mg PO DAILY capsule 07/09/18 07/21/18 levETIRAcetam [Levetiracetam] 750 mg PO BID #0 07/09/18 07/21/18 Insulin Glargine [Lantus Solostar] 15 unit SQ QPM 07/21/18 07/21/18 Ipratropium/Albuterol [Duoneb] 1 vial INH QID 07/21/18 07/21/18 Azithromycin [Zithromax] 1 tab PO BID 07/22/18 07/22/18 Ciprofloxacin [Cipro] 250 mg PO Q12H 07/22/18 07/22/18 Pot Chloride/Pot Bicarb/Cit AC 1 tab PO DAILY 07/22/18 07/22/18 [Potassium Cl 25 Meq Tab Eff] Torsemide 1 tab PO DAILY 07/22/18 07/22/18 - Allergies Allergies/Adverse Reactions: Allergies Allergy/AdvReac Type Severity Reaction Status Date / Time coconut AdvReac Nausea Verified 07/22/18 06:53 - Social History Does the pt smoke?: Yes Smoking Status: Current every day smoker Does the pt drink ETOH?: No Does the pt have substance abuse?: No - Immunizations Immunizations are current?: Yes - POLST Patient has POLST: Yes POLST Status: Limited Interventions (does not want intubation, and I affirmed that with her and her verbally here in ER.) PD ED PE NORMAL - Vitals Vital signs reviewed: Yes (febrile and tachypneic) - General General: Well developed/nourished, Other (tachypneic at rest delay in execution of motor commands. ) - HEENT HEENT: Atraumatic, PERRL, EOMI, Other (dry mucous membranes ) - Neck Neck: Supple, no meningeal sign, No bony TTP - Cardiac Cardiac: RRR, Other (2/6 holosystolic murmer at LSB) - Respiratory Respiratory: Other (tachypneic at rest with diminished breath sounds on the right and rhonchi on the left base ) - Abdomen Abdomen: Soft, Non tender, Other (distended generally mild tenderness without garding. 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, Normal speech Eye Opening: Spontaneous Motor: Obeys Commands Verbal: Oriented GCS Score: 15 - Psych Psych: Normal mood, Normal affect Results - Vitals Vitals: Vital Signs - 24 hr 07/22/18 07/22/18 07/22/18 06:32 07:01 07:35 Temperature 37.7 C H 37.7 C H Heart Rate 88 86 82 Respiratory 28 H 31 H 22 Rate Blood Pressure 99/67 106/55 L 102/66 O2 Saturation 92 89 L 92 07/22/18 07/22/18 08:27 10:18 Temperature Heart Rate 81 76 Respiratory 24 20 Rate Blood Pressure 105/65 98/57 L O2 Saturation 93 95 Oxygen O2 Source [] Nasal cannula O2 Source Simple Mask Oxygen Flow Rate 5 - EKG (time done) 0654 Rate: Rate (enter#) (83) Rhythm: NSR Ischemia: Q waves, Non specific changes Compare to prior EKG: Unchanged from prior EKG (SPT 07-02-18 no sig change) Computer interpretation: Agree with computer - Labs Labs: Laboratory Tests 07/22/18 07/22/18 07/22/18 06:47 06:47 06:47 WBC 9.3 RBC 3.55 L Hgb 10.5 L Hct 31.5 L MCV 88.6 MCH 29.6 MCHC 33.4 RDW 15.4 H Plt Count 154 MPV 9.1 Neut # (Auto) 7.9 H Lymph # (Auto) 0.7 L Bartholomew # (Auto) 0.4 Eos # (Auto) 0.2 Baso # (Auto) 0.1 Absolute Nucleated RBC 0.00 Nucleated RBC % 0.0 PT 13.8 H INR 1.2 APTT 25.5 Bld Gas Analysis Time Sample Site ABG pH ABG pCO2 ABG pO2 ABG HCO3 ABG Total CO2 ABG O2 Saturation ABG Base Excess Navdeep Test Respiration Rate O2 Delivery Device O2 Liters/Min Sodium 138 Potassium 4.1 Chloride 105 Carbon Dioxide 26 Anion Gap 7.0 BUN 20 Creatinine 1.2 H Estimated GFR (MDRD) 44 L Glucose 137 H Lactic Acid Calcium 8.5 Total Bilirubin 0.7 AST 19 ALT 23 Alkaline Phosphatase 59 B-Natriuretic Peptide Total Protein 6.3 L Albumin 2.9 L Globulin 3.4 Albumin/Globulin Ratio 0.9 L Lipase 27 Urine Color Urine Clarity Urine pH Ur Specific Langley Urine Protein Urine Glucose (UA) Urine Ketones Urine Occult Blood Urine Nitrite Urine Bilirubin Urine Urobilinogen Ur Leukocyte Esterase Urine RBC Urine WBC Urine WBC Clumps Ur Squamous Epith Cells Urine Bacteria Urine Yeast Ur Microscopic Review Urine Culture Comments 07/22/18 07/22/18 07/22/18 06:47 06:47 08:04 WBC RBC Hgb Hct MCV MCH MCHC RDW Plt Count MPV Neut # (Auto) Lymph # (Auto) Bartholomew # (Auto) Eos # (Auto) Baso # (Auto) Absolute Nucleated RBC Nucleated RBC % PT INR APTT Bld Gas Analysis Time 0809 Sample Site RIGHT RADIAL ABG pH 7.41 ABG pCO2 44 ABG pO2 68 L ABG HCO3 27.2 H ABG Total CO2 28.5 ABG O2 Saturation 93 L ABG Base Excess 2.3 Navdeep Test POSITIVE Respiration Rate 26 O2 Delivery Device OXYMASK O2 Liters/Min 3.50 Sodium Potassium Chloride Carbon Dioxide Anion Gap BUN Creatinine Estimated GFR (MDRD) Glucose Lactic Acid 0.6 Calcium Total Bilirubin AST ALT Alkaline Phosphatase B-Natriuretic Peptide 112 H Total Protein Albumin Globulin Albumin/Globulin Ratio Lipase Urine Color Urine Clarity Urine pH Ur Specific Langley Urine Protein Urine Glucose (UA) Urine Ketones Urine Occult Blood Urine Nitrite Urine Bilirubin Urine Urobilinogen Ur Leukocyte Esterase Urine RBC Urine WBC Urine WBC Clumps Ur Squamous Epith Cells Urine Bacteria Urine Yeast Ur Microscopic Review Urine Culture Comments 07/22/18 08:50 WBC RBC Hgb Hct MCV MCH MCHC RDW Plt Count MPV Neut # (Auto) Lymph # (Auto) Bartholomew # (Auto) Eos # (Auto) Baso # (Auto) Absolute Nucleated RBC Nucleated RBC % PT INR APTT Bld Gas Analysis Time Sample Site ABG pH ABG pCO2 ABG pO2 ABG HCO3 ABG Total CO2 ABG O2 Saturation ABG Base Excess Navdeep Test Respiration Rate O2 Delivery Device O2 Liters/Min Sodium Potassium Chloride Carbon Dioxide Anion Gap BUN Creatinine Estimated GFR (MDRD) Glucose Lactic Acid Calcium Total Bilirubin AST ALT Alkaline Phosphatase B-Natriuretic Peptide Total Protein Albumin Globulin Albumin/Globulin Ratio Lipase Urine Color YELLOW Urine Clarity CLOUDY Urine pH 6.0 Ur Specific Langley 1.020 Urine Protein 30 H Urine Glucose (UA) NEGATIVE Urine Ketones NEGATIVE Urine Occult Blood SMALL H Urine Nitrite POSITIVE H Urine Bilirubin NEGATIVE Urine Urobilinogen 0.2 (NORMAL) Ur Leukocyte Esterase MODERATE H Urine RBC 0-5 Urine WBC >25 H Urine WBC Clumps PRESENT Ur Squamous Epith Cells FEW Squamous Urine Bacteria Many H Urine Yeast PRESENT Ur Microscopic Review INDICATED Urine Culture Comments INDICATED - Rads (name of study) 1 view chest Radiology: Prelim report reviewed (Impression: 1. Mild to moderate bilateral pleural effusions, worse compared with 07/08/2018. 2. Mild CHF/fluid overload.), EMP read indepedently, See rad report Procedures - Bedside sono Bedside sono by EMP: With use of bedside ultrasound the right lung is examined and there is evidence of pleural effusion about mcfp up the lung posteriorly. The examination of the abdomen reveals presence of ascites. - IVC sono (time) 4867 Bedside IVC sono: IVC measures (cm) (2.24), IVC collapsed c insp (cm) (1.58), Collapsibility index (0.29), Euvolemia PD MEDICAL DECISION MAKING - ED course Complexity details: reviewed old records, reviewed results, re-evaluated patient, considered differential, d/w patient, d/w family ED course: 73 y/o female with a complicated past medical history to include CHF, COPD, pneumonia and a prior stroke with left hemiparesis has had a recent hospitalization for pneumonia transferred [facility] and over the past 2 days has developed increasing shortness of breath and arrives to the emergency department with hypoxia on 2 L nasal cannula. On examination patient is found to have rhonchi in the left base diminished breath sounds on the right she appears to have pleural effusion on the right about mcfp up the lung and infiltrate on the left. I suspect she has a recurrence of her pneumonia. On interrogation of the IVC she appears to have a wide but collapsing IVC indicating a euvolumic state but with the collapsibility index 0f 0.29 (near failure) and she is given IV lasix. She does have diastolic failure according to her chart an IHSS. Her breathing does improve. She has UTI as well and she is given IV rocephin. Dr. Carter is consulted in the case and graciously agrees to care for the patient in the hospital. Departure - Departure Disposition: 66 [facility] DC/Xfer Clinical Impression: Weakness, Acute on chronic diastolic congestive heart failure UTI (urinary tract infection) Qualifiers: Urinary tract infection type: acute cystitis Hematuria presence: without hematuria Qualified Code(s): N30.00 - Acute cystitis without hematuria Condition: Fair
--- NOTE | 2018-07-22 08:00 | XRAY Report ---
Reason: pnuemonia Procedure Date: 07/22/2018 Accession Number: [id number] / [id number] Procedure: XR - Chest 1 View X-Ray CPT Code: 35871 FULL RESULT: EXAM: CHEST RADIOGRAPHY EXAM DATE: 07/22/2018 07:23 AM. CLINICAL HISTORY: Pneumonia. COMPARISON: CHEST 1 VIEW 07/09/2018 8:42 AM CHEST 1 VIEW 07/08/2018 12:50 AM. TECHNIQUE: 1 view. FINDINGS: Lungs/Pleura: There are at least mild bilateral pleural effusions present. Effusions appear increased compared with prior study. There is mild prominence of the pulmonary vasculature and interstitium. Mediastinum: Within exam limitations, the cardiomediastinal contour is normal. Other: Heart and mediastinal contours are notable for aortic calcification. IMPRESSION: 1. Mild to moderate bilateral pleural effusions, worse compared with 07/08/2018. 2. Mild CHF/fluid overload. RADIA
[2018-07-22 08:12] LABS: ABG BASE EXCESS 2.3 mmol/L (-2.0-3.0); ABG HCO3 27.2 mmol/L (22.0-26.0); ABG OXYGEN SATURATION 93 % (94-98); ABG PCO2 44 mmHg (34-45); ABG PH 7.41 (7.35-7.45); ABG PO2 68 mmHg (80-100); ABG TCO2 28.5 MMOL/L (21.0-29.0)
[2018-07-22 08:13] LABS: ALLEN TEST POSITIVE
[2018-07-22] MEDS ORDERED: FUROSEMIDE 40 MG/4 ML VIAL IVP STA (08:19)
[2018-07-22 08:58] LABS: BILIRUBIN,URINE NEGATIVE (NEGATIVE); GLUCOSE, URINE (UA) NEGATIVE (NEGATIVE); KETONES,URINE (UA) NEGATIVE (NEGATIVE); LEUKOCYTE ESTERASE, URINE MODERATE (NEGATIVE); NITRITE,URINE POSITIVE (NEGATIVE); OCCULT BLOOD,URINE SMALL (NEGATIVE); PROTEIN,URINE 30 mg/dL (NEGATIVE); UROBILINOGEN,URINE 0.2 (NORMAL) E.U./dL (NORMAL)
[2018-07-22 09:11] LABS: CLARITY,URINE CLOUDY (CLEAR)
[2018-07-22 09:12] LABS: BACTERIA,URINE Many /HPF (None Seen); RBC,URINE 0-5 /HPF (0-5); SQUAMOUS EPITHELIAL CELL,UR FEW Squamous (<= Few); WBC CLUMPS,URINE PRESENT
[2018-07-22 09:13] LABS: YEAST,URINE PRESENT
[2018-07-22] MEDS ORDERED: cefTRIAXone 1 GM in SODIUM CHLORIDE 0.9% MINIBAG 100 ML IV STA (09:48)
[2018-07-22] MEDS ORDERED: PROCHLORPERAZINE 10 MG/2 ML VIAL IVP PRN (13:35)
[2018-07-22] MEDS ORDERED: SODIUM CHLORIDE FLUSH 0.9% 10 ML SYRINGE IVP PRN (13:35)
[2018-07-22] MEDS ORDERED: FUROSEMIDE 40 MG/4 ML VIAL IVP SCH (14:00)
[2018-07-22] MEDS ORDERED: IOVERSOL 320 100 ML VIAL IVP ONE ×2 (14:21→14:45)
--- NOTE | 2018-07-22 15:57 | CT Report ---
Reason: Ascites and eval ovarian tumor Procedure Date: 07/22/2018 Accession Number: [id number] / [id number] Procedure: CT - Abdomen/Pelvis W/ CPT Code: FULL RESULT: EXAM: CT ABDOMEN AND PELVIS EXAM DATE: 07/22/2018 02:43 PM. CLINICAL HISTORY: Ascites and evaluate ovarian tumor. COMPARISONS: ABDOMEN/PELVIS W/ 04/18/2017 1:22 PM. TECHNIQUE: Routine helical CT imaging was performed through the abdomen and pelvis. IV contrast: [id number] 90ML. Enteric contrast: No. Reconstructions: Coronal and sagittal. In accordance with CT protocol optimization, one or more of the following dose reduction techniques were utilized for this exam: automated exposure control, adjustment of mA and/or KV based on patient size, or use of iterative reconstructive technique. FINDINGS: Lung Bases: At least moderate bilateral pleural effusions with basilar consolidation. Liver: Prior granulomatous disease. Gallbladder/Bile Ducts: Unremarkable. Spleen: Prior granulomatous disease. Pancreas: Partially atrophic. Adrenal Glands: Left adrenal gland has enlarged in individual now up to 3.2 cm, suspect metastasis. Kidneys: Mild bilateral hydroureteronephrosis. Peritoneal Cavity/Bowel: A small amount of free pelvic and abdominal fluid is seen. Pelvic Organs: There is a 26 x 15 x 15 cm partially cystic partially solid pelvic mass, slight interval enlargement. Vasculature: Severe atherosclerotic disease. Bones: No significant abnormality. Other: Anasarca. IVC filter in place. IMPRESSION: Interval enlargement of the pelvic mass with mild hydroureteronephrosis. 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 Small amount of ascites. Anasarca and at least moderate-sized pleural effusions bilaterally. CRITICAL RESULT: The findings were discussed in person with Dr. Gonsalez on 07/22/2018 at 3:59 PM. SHENG
[2018-07-22] MEDS: ACETAMINOPHEN 325 MG TABLET PO PRN (16:21)
[2018-07-22] MEDS ORDERED: ALBUTEROL NEB 2.5 MG/3 ML INH PRN (16:57)
[2018-07-22] MEDS ORDERED: LEVALBUTEROL 1.25 MG/3 ML NEB INH PRN (17:01)
[2018-07-22] MEDS ORDERED: A & D OINTMENT 5 GM PACKET TOP PRN (17:05)
[2018-07-22] MEDS: INSULIN ASPART 300 UNIT/3 ML PEN SUBQ SCH (20:29)
[2018-07-22] MEDS: MIRTAZAPINE 15 MG TABLET PO SCH (21:01)
[2018-07-22] MEDS: GABAPENTIN 300 MG CAPSULE PO SCH (21:01)
[2018-07-22] MEDS: SODIUM CHLORIDE FLUSH 0.9% 10 ML SYRINGE IVP SCH (21:02)
[2018-07-22] MEDS: guaiFENesin 600 MG TABLET PO SCH (21:02)
[2018-07-22] MEDS: INSULIN GLARGINE 300 UNIT/3 ML PEN SUBQ SCH (21:02)
--- NOTE | 2018-07-22 22:10 | HISTORY & PHYSICAL EXAMINATION ---
DATE OF SERVICE: 07/22/2018 Physician: Cyndi Gonsalez MD HISTORY OF PRESENT ILLNESS: This is a 73-year-old white female with a history of COPD, heavy smoking history (when she lived at home she asked for a cigarette so frequently that the and joanne mead allowed her to have one cigarette on the hour on a schedule), diabetes on insulin, obesity, inopera ble ovarian tumor, remote stroke which left her with severe left-sided weakness, she is mostly wheelc hair bound, history of diastolic heart failure. The patient was admitted here approximately 3 weeks ago for diastolic heart failure exacerbation, COPD exacerbation and pneumonia. She was discharged [facility], but did not have her new prescriptions filled and had worsening in her shortness of breath in the 12-20 hours that she was home, got readmitted, required repeat diuresis, institution of antibiotics, COPD management and the family agreed that they could not manage her and she was discharged to [facility] where she has been for these past 3 weeks. Over the past 2 weeks, she has gotten more short of breath and today had a fever. She has been seen there by Lisa Kovacs NP who noticed that yesterday she had increasing leg edema, right arm redness and swelling and increased abdominal girth and was about to start her on IV Lasix, she was getting p.o. torsemide. Today with more shortness of breath and the fever, she was transferred to the emergency room and now is being admitted for manage ment of her shortness of breath, pleural effusions, a UTI. PAST MEDICAL HISTORY: Obesity, COPD, diabetes, old stroke with left hemiparesis, heavy smoking histo ry, pneumonia with pleural effusion that required thoracentesis 3 weeks ago, nearly wheelchair bound, neurogenic bladder. ALLERGIES: ADHESIVE TAPE AND COCONUTS. MEDICATIONS 1. Levetiracetam 750 b.i.d. 2. Mucinex 600 b.i.d. 3. Cardizem CD 120 daily. 4. Amlodipine 10 mg daily. 5. Torsemide 20 mg daily. 6. Spiriva daily. 7. Carafate 1 gram before meals and at bedtime. 8. Potassium chloride 20 mEq daily. 9. Protonix 40 mg daily. 10. Ditropan 2.5 mg daily. 11. Nystatin topically. 12. Nicotine patch 21 mg daily. 13. Remeron 15 mg every night. 14. Lisinopril 20 mg b.i.d. 15. Imdur 30 mg daily. 16. DuoNeb q.i.d. 17. Humalog insulin. 18. Lispro as needed and Lantus 15 units subcutaneous every night. 19. Neurontin 600 mg t.i.d. 20. Advair Diskus b.i.d. 21. Plavix 75 mg daily. 22. Cipro 250 b.i.d. 23. Zithromax b.i.d. (these last two have probably been finished). 24. Adult-dose aspirin daily. 25. Albuterol inhaler p.r.n. 26. Tylenol p.r.n. FAMILY HISTORY: No inherited diseases. SOCIAL HISTORY: She was a heavy smoker, using 1 cigarette every hour until she has now been at [facility] for the last 3 weeks and only gets a nicotine patch, there is no alcohol abuse or drug abuse histo ry: The patient used to live with her , who was the caregiver until he was unable to manage h er after that last admission. The patient's desire is to return home and she actually verbalized carlos t she would like to have the strength to stand and help him with household activities. REVIEW OF SYSTEMS: A comprehensive review of system was performed and the pertinent positives are in the HPI, the rest are negative. PHYSICAL EXAMINATION GENERAL: Obese white female. She is in no distress. She is wearing an OxyMask over her forehead, i t is not over her nose and mouth. VITAL SIGNS: Blood pressure 153/60 down to 98/78 (after IV diuretic dose), heart rate 77, temperatur e in the ER was 37.7, respiratory rate 23, O2 saturation 97% on 3 liters supplemental oxygen. HEENT: Reveals moist oral mucosa, poor dentition. NECK: Obese. CHEST: Diminished breath sounds at both bases, but there are no wheezes or rales. HEART: Heart sounds are distant. No audible murmur. ABDOMEN: Obese, nontender. Positive bowel sounds. No hepatomegaly. EXTREMITIES: 1+ pretibial edema. No clubbing or cyanosis. NEUROLOGIC: Left-sided hemiparesis. LABORATORY DATA: Normal electrolytes, BUN 20, creatinine 1.2 (her baseline creatinine is 1.0), gluco se 137 and lactic acid 0.6. Normal liver tests. BNP 112. INR 1.2. White blood count 9.3 with a le ft shift, hemoglobin 10.5 (her baseline is 11 and 12). Platelet count normal at 154. Urinalysis tyrel wed high protein, small occult blood, positive nitrites, moderate leukocyte esterase, many white bloo d cells and many bacteria. Chest x-ray: Bilateral small to moderate pleural effusions and mild CHF. CT of the abdomen and pelv is were done that showed bilateral basal consolidations of the lungs, small amount of ascites and pel nicolas mass that has increased in size, causing mild hydroureteronephrosis. The impression is that of m alignancy because there is involvement of the adrenal glands. IMPRESSION/DIAGNOSES 1. Shortness of breath. 2. Healthcare-associated pneumonia. 3. Pleural effusion, recurrent (on the old thoracentesis this was a bloody effusion). 4. Ascites. 5. Peripheral edema including the right arm, which could be cellulitic or extravasation of IV flu id. 6. Urinary tract infection. 7. Inoperable ovarian tumor. 8. Cerebrovascular accident with hemiplegia on the left. 9. Chronic obstructive pulmonary disease, currently not in exacerbation. 10. Tobacco abuse history. 11. Diabetes mellitus. 12. Sacral wound, which is reported by the daughter. PLAN: Admit the patient to inpatient status. Begin diuresis with IV Lasix. Continue with a diabeti c diet with fluid and salt restrictions. Obtain a palliative care consult for further guidance regar ding management of the tumor and her overall plan, whether it is time to transition to hospice potent ially. Begin antibiotics to cover both UTI and HCAP. Follow I's and O's carefully therefore using a PureWick. Obtain a wound consult to evaluate the sacral wound as well as the area of the right arm, which could be cellulitis. CODE STATUS: DNR. DEEP VENOUS THROMBOSIS PROPHYLAXIS: SCDs. ATTESTATION: The patient is expected to be discharged or transferred to another facility within 96 h ours: Yes. cc: Belem Doe MD TD: 07/22/2018 19:06
[2018-07-23] MEDS: ACETAMINOPHEN 325 MG TABLET PO PRN ×2 (00:22→20:44)
[2018-07-23] MEDS: SODIUM CHLORIDE FLUSH 0.9% 10 ML SYRINGE IVP SCH ×4 (04:17→23:56)
[2018-07-23 06:11] LABS: HB2 TOTAL 10.8 g/dL; HEMOGLOBIN A1C 0.6 g/dL; HEMOGLOBIN A1C % 7.2 % (4.6-6.2)
[2018-07-23] MEDS: GABAPENTIN 300 MG CAPSULE PO SCH ×3 (06:42→21:24)
[2018-07-23] MEDS: FUROSEMIDE 40 MG/4 ML VIAL IVP SCH ×2 (06:43→07:06)
[2018-07-23] MEDS: PANTOPRAZOLE 40 MG TABLET PO SCH (06:43)
[2018-07-23] MEDS ORDERED: IPRATROPIUM 0.2 MG/ML NEB INH PRN (08:27)
[2018-07-23] MEDS ORDERED: IPRATROPIUM/ALBUTEROL 3 ML NEB INH PRN (08:44)
[2018-07-23] MEDS ORDERED: cefTRIAXone 1 GM in SODIUM CHLORIDE 0.9% MINIBAG 100 ML IV SCH (09:00)
[2018-07-23] MEDS ORDERED: FUROSEMIDE 40 MG TABLET PO SCH (09:00)
[2018-07-23 09:47] LABS: BASOPHILS # (AUTO) 0.1 10^3/uL (0.0-0.1); BASOPHILS % (AUTO) 0.9 %; EOSINOPHILS # (AUTO) 0.4 10^3/uL (0.0-0.7); EOSINOPHILS % (AUTO) 4.8 %; HGB - HEMOGLOBIN 10.2 g/dL (12.0-16.0); LYMPHOCYTES # (AUTO) 0.7 10^3/uL (1.5-3.5); MEAN CORPUSCULAR HEMOGLOBIN 29.7 pg (27.0-31.0); MEAN CORPUSCULAR VOLUME 87.4 fL (81.0-99.0); MEAN PLATELET VOLUME 8.5 fL (7.9-10.8); MONOCYTES # (AUTO) 0.4 10^3/uL (0.0-1.0); MONOCYTES % (AUTO) 5.1 %; NEUTROPHILS # (AUTO) 5.9 10^3/uL (1.5-6.6); NEUTROPHILS % (AUTO) 80.2 %; PLT - PLATELET COUNT 162 10^3/uL (130-450); RED BLOOD COUNT 3.42 10^6/uL (4.20-5.40); RED CELL DISTRIBUTION WIDTH 15.1 % (12.0-15.0); WHITE BLOOD COUNT 7.4 x10^3/uL (4.8-10.8)
[2018-07-23 10:03] LABS: ALBUMIN 2.8 g/dL (3.2-5.5); ALBUMIN/GLOBULIN RATIO 0.8 (1.0-2.2); BILIRUBIN,TOTAL 0.7 mg/dL (0.2-1.0); CALCIUM 8.4 mg/dL (8.5-10.3); CREATININE 1.2 mg/dL (0.4-1.0); TOTAL PROTEIN 6.1 g/dL (6.7-8.2)
[2018-07-23] MEDS: guaiFENesin 600 MG TABLET PO SCH ×2 (11:06→20:43)
[2018-07-23] MEDS: OXYBUTYNIN 5MG TABLET PO SCH (11:06)
[2018-07-23] MEDS: CLOPIDOGREL 75 MG TABLET PO SCH (11:06)
[2018-07-23] MEDS: ASPIRIN EC 325 MG TABLET PO SCH (11:07)
[2018-07-23] MEDS: NICOTINE 21 MG PATCH TOP SCH (11:08)
[2018-07-23] MEDS: POLYETHYLENE GLYCOL 3350 17 GM PACKET PO SCH (11:14)
[2018-07-23] MEDS: INSULIN ASPART 300 UNIT/3 ML PEN SUBQ SCH ×4 (11:14→21:22)
[2018-07-23] MEDS ORDERED: FUROSEMIDE 40 MG/4 ML VIAL IVP SCH (12:00)
--- NOTE | 2018-07-23 14:00 | PROVIDER PROGRESS NOTE ---
Subjective - Prog Note Date Prog Note Date: 07/23/18 - Subjective Pt reports feeling: Worse Subjective: pt report she is still feeling SOB, and feeling not good, no appetite. She also report she feel very tired. she denies chest pain, fever, chill. Consult palliative care pt and her family choose to transition to hospice on and plan at home, per palliative care report Current Medications - Current Medications Current Medications: Active Medications Acetaminophen (Tylenol) 650 mg PO Q4HR PRN PRN Reason: Pain or Fever > 38C (100.4F) Last Admin: 07/23/18 00:22 Dose: 650 mg Albuterol/Ipratropium (Duoneb) 3 ml INH Q4HR PRN PRN Reason: Wheezing Aspirin (Ecotrin) 325 mg PO DAILY [facility] Last Admin: 07/23/18 11:07 Dose: 325 mg Clopidogrel Bisulfate (Plavix) 75 mg PO DAILY [facility] Last Admin: 07/23/18 11:06 Dose: 75 mg Furosemide (Lasix Inj 40 Mg Vial) 40 mg IVP DAILY [facility] Last Admin: 07/23/18 11:47 Dose: 40 mg Gabapentin (Neurontin) 600 mg PO TID [facility] Last Admin: 07/23/18 06:42 Dose: 600 mg Guaifenesin (Mucinex) 600 mg PO BID [facility] Last Admin: 07/23/18 11:06 Dose: 600 mg Ceftriaxone Sodium 1 gm/ (Sodium Chloride) 100 mls @ 200 mls/hr IV DAILY [facility] Last Infusion: 07/23/18 11:46 Dose: Infused Insulin Aspart (Novolog) 1 - 5 unit SUBQ 0800,1200,1700,2100 [facility]; Protocol Last Admin: 07/23/18 11:48 Dose: Not Given Insulin Glargine (Lantus Solostar) 15 unit SUBQ QPM [facility] Last Admin: 07/22/18 21:02 Dose: 15 unit Levalbuterol HCl (Xopenex) 1.25 mg INH Q4H PRN PRN Reason: Shortness of Air/Wheezing Mirtazapine (Remeron) 15 mg PO QPM [facility] Last Admin: 07/22/18 21:01 Dose: 15 mg Nicotine (Nicoderm) 1 patch TOP DAILY [facility] Last Admin: 07/23/18 11:08 Dose: 1 patch Oxybutynin Chloride (Ditropan) 2.5 mg PO DAILY [facility] Last Admin: 07/23/18 11:06 Dose: 2.5 mg Pantoprazole Sodium (Protonix) 40 mg PO QDAC [facility] Last Admin: 07/23/18 06:43 Dose: 40 mg Polyethylene Glycol (Miralax) 17 gm PO DAILY [facility] Last Admin: 07/23/18 11:14 Dose: Not Given Prochlorperazine Edisylate (Compazine Inj) 10 mg IVP Q6HR PRN PRN Reason: Nausea / Vomiting Sodium Chloride (Normal Saline Flush 0.9%) 10 ml IVP PRN PRN PRN Reason: NEEDED PER PROVIDER ORDERS Sodium Chloride (Normal Saline Flush 0.9%) 10 ml IVP 0100,0900,1700 [facility] Last Admin: 07/23/18 11:09 Dose: 10 ml Vitamin A/Vitamin D (Vitamin A & D Ointment) 1 applic TOP PRN PRN PRN Reason: Skin Care Zinc Oxide (Desitin) 113 gm TOP PRN PRN PRN Reason: Skin Care Aspirin [Aspirin EC] 325 mg PO DAILY 08/22/13 Sucralfate [Carafate] 1 gm PO ACHS 08/22/13 Insulin Glargine [Lantus Solostar] 15 unit SQ QPM 07/21/18 Ipratropium/Albuterol [Duoneb] 1 vial INH QID 07/21/18 Albuterol 2.5 mg INH RTQ4H PRN 07/22/18 Azithromycin [Zithromax] 1 tab PO BID 07/22/18 Ciprofloxacin [Cipro] 250 mg PO Q12H 07/22/18 Insulin Lispro [Humalog] 0 unit SUBQ ONCE 07/22/18 Potassium Chloride 20 meq PO DAILY 07/22/18 Torsemide 20 mg PO DAILY 07/22/18 Objective - Vital Signs/Intake & Output Vital Signs: Vital Signs x48h Temp Pulse Resp BP BP Pulse Ox 07/23/18 08:00 36.6 C 73 18 152/56 H 95 07/23/18 06:41 37.1 C 76 24 171/66 H 92 Intake & Output: Intake & Output 07/20/18 07/21/18 07/22/18 07/23/18 23:59 23:59 23:59 23:59 Intake Total 600 220 Output Total 100 200 Balance 500 20 - Lab Results Fish Bones: 07/23/18 09:35 07/23/18 09:35 Other Labs: Lab Results x24hrs 07/23/18 07/23/18 07/23/18 Range/Units 11:06 09:35 09:35 WBC 7.4 (4.8-10.8) x10^3/uL RBC 3.42 L (4.20-5.40) 10^6/uL Hgb 10.2 L (12.0-16.0) g/dL Hct 29.9 L (37.0-47.0) % MCV 87.4 (81.0-99.0) fL MCH 29.7 (27.0-31.0) pg MCHC 34.0 (32.0-36.0) g/dL RDW 15.1 H (12.0-15.0) % Plt Count 162 (130-450) 10^3/uL MPV 8.5 (7.9-10.8) fL Neut # (Auto) 5.9 (1.5-6.6) 10^3/uL Lymph # (Auto) 0.7 L (1.5-3.5) 10^3/uL [place] # (Auto) 0.4 (0.0-1.0) 10^3/uL Eos # (Auto) 0.4 (0.0-0.7) 10^3/uL Baso # (Auto) 0.1 (0.0-0.1) 10^3/uL Absolute Nucleated RBC 0.00 x10^3/uL Nucleated RBC % 0.0 /100WBC Sodium 139 (135-145) mmol/L Potassium 3.6 (3.5-5.0) mmol/L Chloride 102 (101-111) mmol/L Carbon Dioxide 29 (21-32) mmol/L Anion Gap 8.0 (6-13) BUN 17 (6-20) mg/dL Creatinine 1.2 H (0.4-1.0) mg/dL Estimated GFR (MDRD) 44 L (>89) Glucose 89 (70-100) mg/dL POC Whole Bld Glucose 94 (70 - 100) mg/dL Glycated Hemoglobin (4.6-6.2) % Estim Average Glucose (70-100) Calcium 8.4 L (8.5-10.3) mg/dL Magnesium 2.0 (1.7-2.8) mg/dL Total Bilirubin 0.7 (0.2-1.0) mg/dL AST 17 (10-42) IU/L ALT 21 (10-60) IU/L Alkaline Phosphatase 58 (42-121) IU/L Total Protein 6.1 L (6.7-8.2) g/dL Albumin 2.8 L (3.2-5.5) g/dL Globulin 3.3 (2.1-4.2) g/dL Albumin/Globulin Ratio 0.8 L (1.0-2.2) CA 125 Antigen (0.0-35.0) U/mL 07/23/18 07/23/18 07/23/18 Range/Units 07:22 05:31 05:31 WBC (4.8-10.8) x10^3/uL RBC (4.20-5.40) 10^6/uL Hgb (12.0-16.0) g/dL Hct (37.0-47.0) % MCV (81.0-99.0) fL MCH (27.0-31.0) pg MCHC (32.0-36.0) g/dL RDW (12.0-15.0) % Plt Count (130-450) 10^3/uL MPV (7.9-10.8) fL Neut # (Auto) (1.5-6.6) 10^3/uL Lymph # (Auto) (1.5-3.5) 10^3/uL [place] # (Auto) (0.0-1.0) 10^3/uL Eos # (Auto) (0.0-0.7) 10^3/uL Baso # (Auto) (0.0-0.1) 10^3/uL Absolute Nucleated RBC x10^3/uL Nucleated RBC % /100WBC Sodium (135-145) mmol/L Potassium (3.5-5.0) mmol/L Chloride (101-111) mmol/L Carbon Dioxide (21-32) mmol/L Anion Gap (6-13) BUN (6-20) mg/dL Creatinine (0.4-1.0) mg/dL Estimated GFR (MDRD) (>89) Glucose (70-100) mg/dL POC Whole Bld Glucose 89 (70 - 100) mg/dL Glycated Hemoglobin 7.2 H (4.6-6.2) % Estim Average Glucose 160 H (70-100) Calcium (8.5-10.3) mg/dL Magnesium (1.7-2.8) mg/dL Total Bilirubin (0.2-1.0) mg/dL AST (10-42) IU/L ALT (10-60) IU/L Alkaline Phosphatase (42-121) IU/L Total Protein (6.7-8.2) g/dL Albumin (3.2-5.5) g/dL Globulin (2.1-4.2) g/dL Albumin/Globulin Ratio (1.0-2.2) CA 125 Antigen 463.3 H (0.0-35.0) U/mL 07/22/18 Range/Units 20:25 WBC (4.8-10.8) x10^3/uL RBC (4.20-5.40) 10^6/uL Hgb (12.0-16.0) g/dL Hct (37.0-47.0) % MCV (81.0-99.0) fL MCH (27.0-31.0) pg MCHC (32.0-36.0) g/dL RDW (12.0-15.0) % Plt Count (130-450) 10^3/uL MPV (7.9-10.8) fL Neut # (Auto) (1.5-6.6) 10^3/uL Lymph # (Auto) (1.5-3.5) 10^3/uL [place] # (Auto) (0.0-1.0) 10^3/uL Eos # (Auto) (0.0-0.7) 10^3/uL Baso # (Auto) (0.0-0.1) 10^3/uL Absolute Nucleated RBC x10^3/uL Nucleated RBC % /100WBC Sodium (135-145) mmol/L Potassium (3.5-5.0) mmol/L Chloride (101-111) mmol/L Carbon Dioxide (21-32) mmol/L Anion Gap (6-13) BUN (6-20) mg/dL Creatinine (0.4-1.0) mg/dL Estimated GFR (MDRD) (>89) Glucose (70-100) mg/dL POC Whole Bld Glucose 137 H (70 - 100) mg/dL Glycated Hemoglobin (4.6-6.2) % Estim Average Glucose (70-100) Calcium (8.5-10.3) mg/dL Magnesium (1.7-2.8) mg/dL Total Bilirubin (0.2-1.0) mg/dL AST (10-42) IU/L ALT (10-60) IU/L Alkaline Phosphatase (42-121) IU/L Total Protein (6.7-8.2) g/dL Albumin (3.2-5.5) g/dL Globulin (2.1-4.2) g/dL Albumin/Globulin Ratio (1.0-2.2) CA 125 Antigen (0.0-35.0) U/mL Assessment/Plan - Problem List (1) Dyspnea Impression: Patient presented with several days of increasing shortness of breath, coughing increasing lethargy and weakness. CXR reveals increase of pleural effusion. pt is on Aspirin and Plavix, it is less likely to have PE. CTA of 07/02/18 did not reveal PE when pt was admitted with similar symptoms. pt has 95% sat on 6 liter of O2 on mask IV antibiotics with ceftriaxone Supplemental oxygen DuoNeb's prn palliative care provider report she discussed with pt and her family, pt and her family choose for hospice and plan at home (2) Loculated pleural effusion Conclusion/Plan: The patient has a loculated left pleural effusion as is noted on the CT of her chest. CXR reveals increase of pleural effusion. For now will continue treatment as above and monitor patients respiratory status to determine need for thoracentesis. (3) UTI UA reveals UTI continue to treat with Rocephin followup UA culture (4) COPD Conclusion/Plan: The patient has a history of COPD secondary to tobacco abuse. Duo nebs [id number] and as needed Supplemental oxygen (5) UTI (urinary tract infection) Conclusion/Plan: The patient's urine analysis did reveal that she has a ongoing urinary tract infection. This may be partly why she has been lethargic for the last few days. Plan: IV ceftriaxone Urine cx growing E Coli with susceptibilities pending (6) adrenal grand mass CT of abdomen reveals adrenal mass which indicate metastasis palliative care consult palliative care provider report she discussed with pt and her family, pt and her family choose for hospice and plan at home (7) Thyroid nodule Conclusion/Plan: thyroid nodule concern metastasis pt choose to be transfer to hospice (8) Tobacco abuse The patient continues to smoke 1 pack/day. She likely has COPD. Patient counselled on need to quit smoking. We will place the patient on a nicotine patch while she is hospitalized. (9) Hypertension stable (10) Diabetes Conclusion/Plan: Patient on Lantus 10 units nightly at home which is controlled Placed patient on sliding scale insulin hemoglobin A1c is 7.2 Check blood glucose before meals at bedtime Diabetic diet (11) Ovarian mass Conclusion/Plan: The patient has an ovarian mass for which she has been evaluated by oncology. The mass continue to grow and she has an increased CA 125 of 465. The recommendation was for her to have surgical removal of this mass however the patient's neurologist did not clear her for the procedure as he felt that there was too high risk of the patient developing another stroke. At this point the patient is not a surgical candidate. It appears that the patient discussed chemotherapy options with the oncologist but is also not a candidate for systemic chemotherapy. She was recommended for palliative care only. Consulted palliative care pt and her family choose for hospice and plan at home (12) History of CVA (cerebrovascular accident) Conclusion/Plan: The patient has a history of a CVA about 5 years ago from which she has severe left-sided weakness and is wheelchair bound. Plan: Patient will be continued on her home doses of aspirin, Plavix and Lipitor. 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 Consulted palliative care pt and her family choose for hospice and plan at home (13) palliative care consult with palliative care pt and her family choose for hospice and plan at home on . Qualifiers: Dyspnea type: unspecified Qualified Code(s): R06.00 - Dyspnea, unspecified
[2018-07-23] MEDS: COD LIVER OIL/ZINC OXIDE 113 GM TUBE TOP PRN (17:32)
--- NOTE | 2018-07-23 19:18 | CONSULTATION NOTE ---
Palliative Care Follow Up - Referral Referring Provider: Imelda Gonsalez MD Time of Visit: 9918-5723 Referral setting: Hospitalized patient Referral Reason: Ovarian Cancer/Jag. pleural effusions/Anasarca/UTI - Information Sources Records reviewed: RN notes reviewed, Previous records reviewed History/Review of Systems obtained from: Patient, Family (Daughter Ericka and Luis present for visit) Exam limitations: Clinical condition (patient with cognitive deficits related to stroke) - History of Present Illness Update Brief HPI Update: This is a spunky 73-year-old woman whom I had recently consulted on 07/19 secondary to her ongoing complicated history. Patient and her and actually been managing fairly well over the last several years despite patient's significant deficits from a stroke with left hemiplegia, cognitive deficits, and her COPD and significant smoking history. She has a known ovarian mass, confirmed to be ovarian cancer clinically in the context her CA 125 was elevated at 365 03/2017. She was not felt to be a surgical candidate, but the masses continue to increase increasing pressure on her bladder, most likely adding to her risk of UTI, and last measurement done at 19 cm in size with an ultrasound 04/2017. Patient actually has been managing okay though with increasing diffuse abdominal tenderness, concern at appointment on 07/19 for ascites, patient has presented with anasarca, and though initially improved at her nursing home facility stay, had started to deteriorate. I had initiated a conversation regarding discharging home with hospice if patient continued to do poorly, hoping to confirm where her ovarian cancer was out as far as helping with prognostication. Patient has had increased difficulty with breathing, now confirmed most likely with the increase of her bilateral pleural effusions, she does have significant pressure from her abdomen related to her ovarian mass, though the scan did only show a small amount of ascites. She has been diuresed, her swelling is much down from when I saw her on Sunday, still has pooling in her particular right upper arm, and still presents with moderate anasarca but not as bad as last examination. On admit, did request follow-up as far as touch point where her ovarian masses, she did get a CT of the abdomen which showed it had increased to 26 x 15 x 15 cm, and it is quite tender mostly in her left lower quadrant on palpation. It did show a partially cystic mixed with solid pelvic mass. Also will follow up her CA 125 has increased to 463.3 from last known measurement on 03/2017 of 365.3. I suspect though her more life- threatening situation, is actually her COPD, she continues to have significant breathlessness, moist cough, and increased discomfort with breathing when sitting straight up related to her abdominal pressure. Palliative care to meet with patient and family to establish further goals of care, follow-up regarding transitioning possibly home with hospice is the intent of our visit today. Social History - Living Situation Living arrangement: At home Living Situation: With spouse/s.o. (Spouse has been independently caring for patient for the last 5 years, her transfers are difficult, but she was able at that point in time to stand and pivot. As her incontinence become more difficult, with more difficult change in the bed, this is a huge concern for him moving forward how this might look and how he might care for her. He does not cook nor does she like his cooking, they do eat fast food, patient does smoke heavily at home. She is currently on a nicotine patch here and had been at the nursing home facility as well, actually despite her heavy abuse she did tolerate the patch as well.) Support System: They do have a daughter Molly, she lives in [facility], she does work full-time. She is here at the visit, appropriately tearful, is very supportive of helping mother meet her goals to go home, she reports patient has been quite tired of her quality of life for a long period of time, particular with increasing pain, she plans to be present for the next few days to help with transition. She will help her father cleaning up the house so that they can get the hospital bed in the living room. Medications/Allergies - Medications Active Medication List: Active Medications Acetaminophen (Tylenol) 650 mg PO Q4HR PRN PRN Reason: Pain or Fever > 38C (100.4F) Last Admin: 07/23/18 00:22 Dose: 650 mg Albuterol/Ipratropium (Duoneb) 3 ml INH Q4HR PRN PRN Reason: Wheezing Aspirin (Ecotrin) 325 mg PO DAILY [facility] Last Admin: 07/23/18 11:07 Dose: 325 mg Clopidogrel Bisulfate (Plavix) 75 mg PO DAILY [facility] Last Admin: 07/23/18 11:06 Dose: 75 mg Furosemide (Lasix Inj 40 Mg Vial) 40 mg IVP DAILY [facility] Last Admin: 07/23/18 11:47 Dose: 40 mg Gabapentin (Neurontin) 600 mg PO TID [facility] Last Admin: 07/23/18 14:03 Dose: 600 mg Guaifenesin (Mucinex) 600 mg PO BID [facility] Last Admin: 07/23/18 11:06 Dose: 600 mg Ceftriaxone Sodium 1 gm/ (Sodium Chloride) 100 mls @ 200 mls/hr IV DAILY [facility] Last Infusion: 07/23/18 11:46 Dose: Infused Insulin Aspart (Novolog) 1 - 5 unit SUBQ 0800,1200,1700,2100 [facility]; Protocol Last Admin: 07/23/18 16:44 Dose: Not Given Insulin Glargine (Lantus Solostar) 15 unit SUBQ QPM [facility] Last Admin: 07/22/18 21:02 Dose: 15 unit Levalbuterol HCl (Xopenex) 1.25 mg INH Q4H PRN PRN Reason: Shortness of Air/Wheezing Mirtazapine (Remeron) 15 mg PO QPM [facility] Last Admin: 07/22/18 21:01 Dose: 15 mg Nicotine (Nicoderm) 1 patch TOP DAILY [facility] Last Admin: 07/23/18 11:08 Dose: 1 patch Oxybutynin Chloride (Ditropan) 2.5 mg PO DAILY [facility] Last Admin: 07/23/18 11:06 Dose: 2.5 mg Pantoprazole Sodium (Protonix) 40 mg PO QDAC [facility] Last Admin: 07/23/18 06:43 Dose: 40 mg Polyethylene Glycol (Miralax) 17 gm PO DAILY [facility] Last Admin: 07/23/18 11:14 Dose: Not Given Prochlorperazine Edisylate (Compazine Inj) 10 mg IVP Q6HR PRN PRN Reason: Nausea / Vomiting Sodium Chloride (Normal Saline Flush 0.9%) 10 ml IVP PRN PRN PRN Reason: NEEDED PER PROVIDER ORDERS Sodium Chloride (Normal Saline Flush 0.9%) 10 ml IVP 0100,0900,1700 [facility] Last Admin: 07/23/18 17:32 Dose: 10 ml Vitamin A/Vitamin D (Vitamin A & D Ointment) 1 applic TOP PRN PRN PRN Reason: Skin Care Zinc Oxide (Desitin) 113 gm TOP PRN PRN PRN Reason: Skin Care Last Admin: 12/11/18 17:32 Dose: 1 applic Aspirin [Aspirin EC] 325 mg PO DAILY 08/22/13 Sucralfate [Carafate] 1 gm PO ACHS 08/22/13 Insulin Glargine [Lantus Solostar] 15 unit SQ QPM 07/21/18 Ipratropium/Albuterol [Duoneb] 1 vial INH QID 07/21/18 Albuterol 2.5 mg INH RTQ4H PRN 07/22/18 Azithromycin [Zithromax] 1 tab PO BID 07/22/18 Ciprofloxacin [Cipro] 250 mg PO Q12H 07/22/18 Insulin Lispro [Humalog] 0 unit SUBQ ONCE 07/22/18 Potassium Chloride 20 meq PO DAILY 07/22/18 Torsemide 20 mg PO DAILY 07/22/18 - Allergies Allergies/Adverse Reactions: Allergies Allergy/AdvReac Type Severity Reaction Status Date / Time adhesive AdvReac Itching Verified 07/22/18 16:07 coconut AdvReac Nausea Verified 07/22/18 06:53 Review of Systems - Constitutional Constitutional: reports: Fatigue, Weight loss (fluid) - Eyes Eyes: reports: Vision loss - Ears, Nose & Throat Ears, Nose & Throat: reports: Dry mouth - Cardiovascular Cardiovascular: reports: Edema, Exertional dyspnea, Decr. exercise tolerance, Orthopnea - Respiratory Respiratory: reports: Cough, Wheezing, Orthopnea, SOB at rest, SOB with exertion - Gastrointestinal Gastrointestinal: reports: Abdominal distention, Nausea, Bloating, Early satiety (patient does like to eat fast food) - Genitourinary Genitourinary: reports: Dysuria, Frequency, Incontinence, Other (displayed s ymptoms of urinary retention at home) - Musculoskeletal Musculoskeletal: reports: Stiffness, Limited range of motion (left sided hemiplegia), Muscle weakness, Transfer issues (has been bedbound since hospitalization) - Integumentary Integumentary: reports: Rash (under pannus), Other (pressure fissure/wound coccyx) - Neurological Neurological: reports: General weakness, Memory problems - Psychiatric Psychiatric: reports: Depression, Anxiety - Hematologic/Lymphatic Hematologic/Lymphatic: reports: Anemia (hgb 10.2), Recurrent infections (pneumonia/UTI hx) - All Other Systems All Other Systems: reports: Other (limited ROS) Physical Exam - Vital Signs Vital Signs: Vital Signs x48h Temp Pulse Resp BP Pulse Ox 07/23/18 15:30 37.0 C 71 18 148/51 H 97 - Physical Exam General Appearance: positive: Mild distress, Anxious Eyes Bilateral: positive: Normal inspection ENT: positive: No signs of dehydration. negative: Pharyngeal erythema Neck: positive: No JVD, Trachea midline, Other (thickened neck) Cardiovascular: positive: Irregular Respiratory: positive: Diminished throughout, Wheezes (scattered insp.), Other (minimal air movement 1/4 up bilaterally right greater than left) Abdomen: positive: Nml bowel sounds, Tenderness, Guarding, Distended, Taut, Obese Skin: positive: Pressure wound (fissure coccyx; bilat. small open areas under pannus; excoriation right thigh near briefs) Extremities: positive: Pedal edema (much improved but still present; pitting LE; right arm with pooling forearm/elbow with thinned reddened area underneath; left arm with less swelling than last visit put present), Other (thickened fungal nails that wrap around end of toes) Neurologic/Psychiatric: positive: Disoriented to time, Weakness, Slurred/abnml speech, Depressed mood/affect, Flat affect Palliative Care - POLST Patient has POLST: Yes POLST Status: DNR, Selective Treatment Pain: Pain worsening, Location (abdominal pain and discomfort; worse with pressure of sitting upright; pain with palpation; reports uncomfortable; patient also with significant peripheral neuropathy lower extremities and 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 Both and daughter do recognize patient's impending decline, I would like to honor her wishes to be able to go home. Counseling provided regarding hospice, services provided, as well as limitations. 's concern is being able to manage her personal care, we did discuss having Alaniz placed, but would still need to deal with bowel movements. Patient has been in a bed with a large dense is been difficult to provide personal care, reassured would get training regarding being able to change patient in the bed, as well as home health aids would provide bathing. Both are quite aware patient will want to resume smoking, though patient is hav ing respiratory effort and demise, may not be so persistent and this goal on arrival home. Patient perceives herself is feeling quite miserable, and family in agreement her current quality of life his continue to deteriorate. Discussed option for hiring help, do not feel like they have the resources financially to be able to do this, daughter will at least initially take time off work for a few days to provide support for her father as well as get Maday settled. Much conversation regarding where bed should be placed, recommended bedbound status, patient has been always quite insistent in getting up into the chair, but this is been to get out of the bedroom. Will place a bedroom in the living room where the TV is, and she can be more interactive in her environment. Current goals are to continue with treatment of her UTI, move toward discharge home with hospice, getting appropriate equipment and support in place. Daughter had had further conversation with Maday regarding this, and in follow-up later Maday is able to express her understanding she will be going home with the intent to not return back to the hospital, with adequate pain and symptom management, if she were to have any kind of distress. The goal would be to have a comfortable respectful at home. They will need front loading for visits from hospice for training and support to make this a successful transition. Results - Lab Results Lab results reviewed: Yes Fish Bones: 07/23/18 09:35 07/23/18 09:35 Lab and Imaging Results: Lab Results x24hrs 07/23/18 07/23/18 07/23/18 Range/Units 16:25 11:06 09:35 WBC (4.8-10.8) x10^3/uL RBC (4.20-5.40) 10^6/uL Hgb (12.0-16.0) g/dL Hct (37.0-47.0) % MCV (81.0-99.0) fL MCH (27.0-31.0) pg MCHC (32.0-36.0) g/dL RDW (12.0-15.0) % Plt Count (130-450) 10^3/uL MPV (7.9-10.8) fL Neut # (Auto) (1.5-6.6) 10^3/uL Lymph # (Auto) (1.5-3.5) 10^3/uL [place] # (Auto) (0.0-1.0) 10^3/uL Eos # (Auto) (0.0-0.7) 10^3/uL Baso # (Auto) (0.0-0.1) 10^3/uL Absolute Nucleated RBC x10^3/uL Nucleated RBC % /100WBC Sodium 139 (135-145) mmol/L Potassium 3.6 (3.5-5.0) mmol/L Chloride 102 (101-111) mmol/L Carbon Dioxide 29 (21-32) mmol/L Anion Gap 8.0 (6-13) BUN 17 (6-20) mg/dL Creatinine 1.2 H (0.4-1.0) mg/dL Estimated GFR (MDRD) 44 L (>89) Glucose 89 (70-100) mg/dL POC Whole Bld Glucose 123 H 94 (70 - 100) mg/dL Glycated Hemoglobin (4.6-6.2) % Estim Average Glucose (70-100) Calcium 8.4 L (8.5-10.3) mg/dL Magnesium 2.0 (1.7-2.8) mg/dL Total Bilirubin 0.7 (0.2-1.0) mg/dL AST 17 (10-42) IU/L ALT 21 (10-60) IU/L Alkaline Phosphatase 58 (42-121) IU/L Total Protein 6.1 L (6.7-8.2) g/dL Albumin 2.8 L (3.2-5.5) g/dL Globulin 3.3 (2.1-4.2) g/dL Albumin/Globulin Ratio 0.8 L (1.0-2.2) CA 125 Antigen (0.0-35.0) U/mL 07/23/18 07/23/18 07/23/18 Range/Units 09:35 07:22 05:31 WBC 7.4 (4.8-10.8) x10^3/uL RBC 3.42 L (4.20-5.40) 10^6/uL Hgb 10.2 L (12.0-16.0) g/dL Hct 29.9 L (37.0-47.0) % MCV 87.4 (81.0-99.0) fL MCH 29.7 (27.0-31.0) pg MCHC 34.0 (32.0-36.0) g/dL RDW 15.1 H (12.0-15.0) % Plt Count 162 (130-450) 10^3/uL MPV 8.5 (7.9-10.8) fL Neut # (Auto) 5.9 (1.5-6.6) 10^3/uL Lymph # (Auto) 0.7 L (1.5-3.5) 10^3/uL [place] # (Auto) 0.4 (0.0-1.0) 10^3/uL Eos # (Auto) 0.4 (0.0-0.7) 10^3/uL Baso # (Auto) 0.1 (0.0-0.1) 10^3/uL Absolute Nucleated RBC 0.00 x10^3/uL Nucleated RBC % 0.0 /100WBC Sodium (135-145) mmol/L Potassium (3.5-5.0) mmol/L Chloride (101-111) mmol/L Carbon Dioxide (21-32) mmol/L Anion Gap (6-13) BUN (6-20) mg/dL Creatinine (0.4-1.0) mg/dL Estimated GFR (MDRD) (>89) Glucose (70-100) mg/dL POC Whole Bld Glucose 89 (70 - 100) mg/dL Glycated Hemoglobin 7.2 H (4.6-6.2) % Estim Average Glucose 160 H (70-100) Calcium (8.5-10.3) mg/dL Magnesium (1.7-2.8) mg/dL Total Bilirubin (0.2-1.0) mg/dL AST (10-42) IU/L ALT (10-60) IU/L Alkaline Phosphatase (42-121) IU/L Total Protein (6.7-8.2) g/dL Albumin (3.2-5.5) g/dL Globulin (2.1-4.2) g/dL Albumin/Globulin Ratio (1.0-2.2) CA 125 Antigen (0.0-35.0) U/mL 07/23/18 07/22/18 Range/Units 05:31 20:25 WBC (4.8-10.8) x10^3/uL RBC (4.20-5.40) 10^6/uL Hgb (12.0-16.0) g/dL Hct (37.0-47.0) % MCV (81.0-99.0) fL MCH (27.0-31.0) pg MCHC (32.0-36.0) g/dL RDW (12.0-15.0) % Plt Count (130-450) 10^3/uL MPV (7.9-10.8) fL Neut # (Auto) (1.5-6.6) 10^3/uL Lymph # (Auto) (1.5-3.5) 10^3/uL [place] # (Auto) (0.0-1.0) 10^3/uL Eos # (Auto) (0.0-0.7) 10^3/uL Baso # (Auto) (0.0-0.1) 10^3/uL Absolute Nucleated RBC x10^3/uL Nucleated RBC % /100WBC Sodium (135-145) mmol/L Potassium (3.5-5.0) mmol/L Chloride (101-111) mmol/L Carbon Dioxide (21-32) mmol/L Anion Gap (6-13) BUN (6-20) mg/dL Creatinine (0.4-1.0) mg/dL Estimated GFR (MDRD) (>89) Glucose (70-100) mg/dL POC Whole Bld Glucose 137 H (70 - 100) mg/dL Glycated Hemoglobin (4.6-6.2) % Estim Average Glucose (70-100) Calcium (8.5-10.3) mg/dL Magnesium (1.7-2.8) mg/dL Total Bilirubin (0.2-1.0) mg/dL AST (10-42) IU/L ALT (10-60) IU/L Alkaline Phosphatase (42-121) IU/L Total Protein (6.7-8.2) g/dL Albumin (3.2-5.5) g/dL Globulin (2.1-4.2) g/dL Albumin/Globulin Ratio (1.0-2.2) CA 125 Antigen 463.3 H (0.0-35.0) U/mL Impression and Recommendations - Palliative Care Impression: This is a 73-year-old woman with progressive ovarian cancer, increasing abdominal discomfort, anasarca, bilateral pleural effusions, COPD, and recurrent UTIs. Given patient's ongoing functional and cognitive decline, goal is to return patient home per her wishes. Palliative care providing support and counseling regarding goals of care and transition to hospice. Recommendations/Counseling Done: 1. Ovarian cancer. Patient with this increasing abdominal pain, has had intermittent acetaminophen without much success. Patient is on gabapentin for her long-term neuropathies, patient would benefit from some low-dose opioid on intermittent dosing. Would go ahead and initiate morphine 20 mg per/ml, 5 mg every 2 hours for symptoms of pain and/or respiratory distress.Family's goals are to have patient comfortable, and to minimize any pain, distress or suffering. 2. Bilateral pleural effusions. Patient is having increased respiratory effort and discomfort, multifactorial in origin including bilateral pleural effusions, abdominal pressure, and underlying COPD. Patient currently on oxygen, patient prefers mask to nasal prongs for comfort. and daughter are aware patient should be discouraged from smoking, though want to honor patient's wishes for having her last few days as comfortable as possible. For the patient this is a long-term pleasure for her. 3. Urinary incontinence. Patient currently on awake, patient will need Alaniz catheter placed prior to discharge, would recommend placement tomorrow so patient can get used to it. will need to personal care issues alleviated as much as possible. If present, nursing please include him in any training for changing, skin care, and positioning. 4. Advanced care planning. Will update [facility] tomorrow, but did discuss goals of care are to focus on comfort, no further transfer to the hospital, and transition to hospice. Counseling provided to daughter and regarding hospice benefit both what is included and not included. They will benefit from a volunteer, as soon as possible as patient does shop frequently for fast food meals. He is aware he is not to leave her alone, though she does have a [employer], and if she is aware and awake has been able to access help if needed. Contact to [facility] hospice, will be able to accommodate admission on , will need hospital bed, oxygen, over the bed table, and bed pads. Terminal Dx will be Ovarian Cancer, though most likely her demise will be respiratory. PRIOR to discharge: 1) Alaniz catheter placed to gravity drainage 2) RX: for morphine 20/mg ml; 5-10 mg (0.25-0.5 ml) every two hours for pain/respiratory distress 30 mls lorazepam 2 mg/ml; 0.5 mg every 4 hours as needed for anxiety # 30 mls Equipment to be delivered tomorrow Will need BLS transfer Time Spent: 60 minutes was given 50% of this done in counseling regarding goals of care, hospice benefit, coordination of care with hospice team and hospitalist.
[2018-07-23] MEDS: MIRTAZAPINE 15 MG TABLET PO SCH (20:43)
[2018-07-23] MEDS: INSULIN GLARGINE 300 UNIT/3 ML PEN SUBQ SCH (21:23)
[2018-07-24] MEDS: ACETAMINOPHEN 325 MG TABLET PO PRN ×2 (04:27→19:25)
[2018-07-24 05:59] LABS: BASOPHILS % (AUTO) 0.8 %; EOSINOPHILS # (AUTO) 0.3 10^3/uL (0.0-0.7); EOSINOPHILS % (AUTO) 4.7 %; HGB - HEMOGLOBIN 11.3 g/dL (12.0-16.0); LYMPHOCYTES # (AUTO) 0.7 10^3/uL (1.5-3.5); LYMPHOCYTES % (AUTO) 10.6 %; MEAN CORPUSCULAR HEMOGLOBIN 28.8 pg (27.0-31.0); MEAN CORPUSCULAR HGB CONC 31.8 g/dL (32.0-36.0); MEAN CORPUSCULAR VOLUME 90.4 fL (81.0-99.0); MONOCYTES # (AUTO) 0.4 10^3/uL (0.0-1.0); MONOCYTES % (AUTO) 5.9 %; NEUTROPHILS # (AUTO) 4.9 10^3/uL (1.5-6.6); PLT - PLATELET COUNT 165 10^3/uL (130-450); RED BLOOD COUNT 3.91 10^6/uL (4.20-5.40); RED CELL DISTRIBUTION WIDTH 15.3 % (12.0-15.0); WHITE BLOOD COUNT 6.3 x10^3/uL (4.8-10.8)
[2018-07-24 06:09] LABS: ALBUMIN 2.8 g/dL (3.2-5.5); ALBUMIN/GLOBULIN RATIO 0.8 (1.0-2.2); BILIRUBIN,TOTAL 0.3 mg/dL (0.2-1.0); CALCIUM 8.4 mg/dL (8.5-10.3); CREATININE 1.1 mg/dL (0.4-1.0); TOTAL PROTEIN 6.4 g/dL (6.7-8.2)
[2018-07-24] MEDS: PANTOPRAZOLE 40 MG TABLET PO SCH (06:12)
[2018-07-24] MEDS: GABAPENTIN 300 MG CAPSULE PO SCH ×3 (06:12→21:09)
[2018-07-24] MEDS: IPRATROPIUM/ALBUTEROL 3 ML NEB INH SCH ×4 (07:50→20:23)
[2018-07-24] MEDS: BUDESONIDE 0.5 MG/2 ML NEB INH SCH ×2 (07:51→20:23)
[2018-07-24] MEDS ORDERED: POTASSIUM CHLORIDE 20 MEQ TABLET PO SCH (08:14)
[2018-07-24] MEDS: NICOTINE 21 MG PATCH TOP SCH (08:49)
[2018-07-24] MEDS: INSULIN ASPART 300 UNIT/3 ML PEN SUBQ SCH ×4 (08:49→21:08)
[2018-07-24] MEDS: OXYBUTYNIN 5MG TABLET PO SCH (08:50)
[2018-07-24] MEDS: guaiFENesin 600 MG TABLET PO SCH ×2 (08:50→20:38)
[2018-07-24] MEDS: ASPIRIN EC 325 MG TABLET PO SCH (08:50)
[2018-07-24] MEDS: CLOPIDOGREL 75 MG TABLET PO SCH (08:50)
[2018-07-24] MEDS: POLYETHYLENE GLYCOL 3350 17 GM PACKET PO SCH (08:51)
[2018-07-24] MEDS: SODIUM CHLORIDE FLUSH 0.9% 10 ML SYRINGE IVP SCH ×2 (08:51→15:25)
--- NOTE | 2018-07-24 10:14 | ADVANCE CARE PLANNING NOTE ---
Advance Care Planning - Date/Time Date: 07/24/18 Time: 10:14 - Purpose of encounter Text: advance care for pt - Parties in attendance Parties in attendance: pt, pt's , and me - Decisional capacity Decisional capacity of: pt is some kind of confusion. pt's make the decision for pt - Subjective/Patient's story Subjective/Patient's story: pt and pt's to seek palliative care and further advance care, hospice care - Objective/Medical story Objective/Medical Story: pt has hx of severe CVA with left total paralysis, and with hx of ovarian mass, and continue to grow to the size about 26 cm. Per previous hospitalization, pt is not candidate for operation, pt's neurologist think pt is not candidate for operation. pt continue to have heavy cigarette smoker. Pt also has quite large adrenal mass and thyroid mass as well. pt has recurrent UTI, pleural effusion, and severe COPD. Now pt is O2 dependent at 6 liter of O2 - Goals of Care Goals of care determinations: pt, and her request transition to home for hospice care. - Plan Plan: will d/c to tomorrow for hospice care on her home. Palliative and hospice care were consulted. - Time Spent on Advance Care Planning Time spent on advance care plannin
[2018-07-24] MEDS ORDERED: LORazepam 0.5 MG TABLET SL PRN (11:17)
[2018-07-24] MEDS ORDERED: FUROSEMIDE 40 MG TABLET PO ONE (13:00)
[2018-07-24] MEDS: levoFLOXacin 250 MG TABLET PO SCH (13:07)
--- NOTE | 2018-07-24 15:14 | PROVIDER PROGRESS NOTE ---
Subjective - Prog Note Date Prog Note Date: 07/24/18 - Subjective Pt reports feeling: No change Subjective: pt state she still feel tired, and state no appetite. She denies fever, chill, chest pain. I discussed with pt and pt's daughter, and updated pt's medical conditions. Again pt and her daughter agreed to have hospice care at her home. Daughter reported her mother's hospice care team will see pt on tomorrow 2-3pm. Current Medications - Current Medications Current Medications: Active Medications Acetaminophen (Tylenol) 650 mg PO Q4HR PRN PRN Reason: Pain or Fever > 38C (100.4F) Last Admin: 07/24/18 04:27 Dose: 650 mg Albuterol/Ipratropium (Duoneb) 3 ml INH Q4HR PRN PRN Reason: Wheezing Last Admin: 07/24/18 04:35 Dose: 3 ml Albuterol/Ipratropium (Duoneb) 3 ml INH RTQID [facility] Last Admin: 07/24/18 12:21 Dose: 3 ml Aspirin (Ecotrin) 325 mg PO DAILY [facility] Last Admin: 07/24/18 08:50 Dose: 325 mg Budesonide (Pulmicort) 0.5 mg INH RTBID [facility] Last Admin: 07/24/18 07:51 Dose: 0.5 mg Clopidogrel Bisulfate (Plavix) 75 mg PO DAILY [facility] Last Admin: 07/24/18 08:50 Dose: 75 mg Furosemide (Lasix) 40 mg PO DAILY [facility] Gabapentin (Neurontin) 600 mg PO TID [facility] Last Admin: 07/24/18 13:07 Dose: 600 mg Guaifenesin (Mucinex) 600 mg PO BID [facility] Last Admin: 07/24/18 08:50 Dose: 600 mg Insulin Aspart (Novolog) 1 - 5 unit SUBQ 0800,1200,1700,2100 [facility]; Protocol Last Admin: 07/24/18 11:55 Dose: Not Given Insulin Glargine (Lantus Solostar) 15 unit SUBQ QPM [facility] Last Admin: 07/23/18 21:23 Dose: 15 unit Levalbuterol HCl (Xopenex) 1.25 mg INH Q4H PRN PRN Reason: Shortness of Air/Wheezing Levofloxacin (Levaquin) 500 mg PO DAILY [facility] Last Admin: 07/24/18 13:07 Dose: 500 mg Lorazepam (Ativan) 0.5 mg SL Q6H PRN PRN Reason: Anxiety Mirtazapine (Remeron) 15 mg PO QPM [facility] Last Admin: 07/23/18 20:43 Dose: 15 mg Morphine Sulfate (Roxanol) 5 mg PO Q2HR PRN PRN Reason: PAIN Nicotine (Nicoderm) 1 patch TOP DAILY [facility] Last Admin: 07/24/18 08:49 Dose: 1 patch Oxybutynin Chloride (Ditropan) 2.5 mg PO DAILY [facility] Last Admin: 07/24/18 08:50 Dose: 2.5 mg Pantoprazole Sodium (Protonix) 40 mg PO QDAC [facility] Last Admin: 07/24/18 06:12 Dose: 40 mg Polyethylene Glycol (Miralax) 17 gm PO DAILY [facility] Last Admin: 07/24/18 08:51 Dose: Not Given Prochlorperazine Edisylate (Compazine Inj) 10 mg IVP Q6HR PRN PRN Reason: Nausea / Vomiting Sodium Chloride (Normal Saline Flush 0.9%) 10 ml IVP PRN PRN PRN Reason: NEEDED PER PROVIDER ORDERS Sodium Chloride (Normal Saline Flush 0.9%) 10 ml IVP 0100,0900,1700 [facility] Last Admin: 07/24/18 15:25 Dose: Not Given Vitamin A/Vitamin D (Vitamin A & D Ointment) 1 applic TOP PRN PRN PRN Reason: Skin Care Zinc Oxide (Desitin) 113 gm TOP PRN PRN PRN Reason: Skin Care Last Admin: 07/23/18 17:32 Dose: 1 applic Aspirin [Aspirin EC] 325 mg PO DAILY 08/22/13 Sucralfate [Carafate] 1 gm PO ACHS 08/22/13 Insulin Glargine [Lantus Solostar] 15 unit SQ QPM 07/21/18 Ipratropium/Albuterol [Duoneb] 1 vial INH QID 07/21/18 Albuterol 2.5 mg INH RTQ4H PRN 07/22/18 Azithromycin [Zithromax] 1 tab PO BID 07/22/18 Ciprofloxacin [Cipro] 250 mg PO Q12H 07/22/18 Insulin Lispro [Humalog] 0 unit SUBQ ONCE 07/22/18 Potassium Chloride 20 meq PO DAILY 07/22/18 Torsemide 20 mg PO DAILY 07/22/18 Objective - Vital Signs/Intake & Output Reviewed Vital Signs: Yes Vital Signs: Vital Signs x48h Temp Pulse Pulse Resp BP Pulse Ox 07/24/18 12:22 78 18 07/24/18 08:00 36.6 C 66 20 148/51 H 93 07/24/18 07:44 80 20 Intake & Output: Intake & Output 07/21/18 07/22/18 07/23/18 07/24/18 23:59 23:59 23:59 23:59 Intake Total 600 1247 555 Output Total 100 400 650 Balance 500 847 -95 - Objective General Appearance: positive: No acute distress, Alert. negative: Lethargic Eyes Bilateral: positive: Normal inspection, PERRL, No lid inflammation, Conjunctivae nml ENT: positive: ENT inspection nml, Pharynx nml, No signs of dehydration. negative: Purulent nasal drainage, Pharyngeal erythema, Oral lesions Neck: positive: Nml inspection, Thyroid nml, No JVD, Trachea midline. negative: Thyromegaly, Lymphadenopathy (R), Lymphadenopathy (L), Stiff neck, Swelling/bruising, Tracheal deviation Respiratory: positive: Chest non-tender. negative: No respiratory distress, Breath sounds nml, Wheezes, Rales Cardiovascular: positive: Regular rate & rhythm, No murmur, No gallop. negative: Irregularly irregular, Tachycardia, Bradycardia, Systolic murmur, Diastolic murmur Peripheral Pulses: 2+ Radial (R), 2+ Radial (L), 2+ Dorsalis pedis (R), 2+ Do rsalis pedis (L) Abdomen: positive: Non-tender, Nml bowel sounds. negative: Tenderness, Guarding, Rebound Back: positive: Nml inspection Skin: positive: Color nml, No rash, Warm, Dry. negative: Cyanosis, Diaphoresis, Pallor Extremities: positive: Non-tender. negative: Full ROM, Calf tenderness, Dayne's sign/cords Neurologic/Psychiatric: negative: Facial droop, Slurred/abnml speech - Lab Results Fish Bones: 07/24/18 05:18 07/24/18 05:18 Other Labs: Lab Results x24hrs 07/24/18 07/24/18 07/24/18 Range/Units 11:23 07:29 05:18 WBC (4.8-10.8) x10^3/uL RBC (4.20-5.40) 10^6/uL Hgb (12.0-16.0) g/dL Hct (37.0-47.0) % MCV (81.0-99.0) fL MCH (27.0-31.0) pg MCHC (32.0-36.0) g/dL RDW (12.0-15.0) % Plt Count (130-450) 10^3/uL MPV (7.9-10.8) fL Neut # (Auto) (1.5-6.6) 10^3/uL Lymph # (Auto) (1.5-3.5) 10^3/uL Mccormick # (Auto) (0.0-1.0) 10^3/uL Eos # (Auto) (0.0-0.7) 10^3/uL Baso # (Auto) (0.0-0.1) 10^3/uL Absolute Nucleated RBC x10^3/uL Nucleated RBC % /100WBC Sodium 138 (135-145) mmol/L Potassium 3.4 L (3.5-5.0) mmol/L Chloride 102 (101-111) mmol/L Carbon Dioxide 28 (21-32) mmol/L Anion Gap 8.0 (6-13) BUN 17 (6-20) mg/dL Creatinine 1.1 H (0.4-1.0) mg/dL Estimated GFR (MDRD) 49 L (>89) Glucose 109 H (70-100) mg/dL POC Whole Bld Glucose 135 H 110 H (70 - 100) mg/dL Calcium 8.4 L (8.5-10.3) mg/dL Total Bilirubin 0.3 (0.2-1.0) mg/dL AST 18 (10-42) IU/L ALT 21 (10-60) IU/L Alkaline Phosphatase 63 (42-121) IU/L Total Protein 6.4 L (6.7-8.2) g/dL Albumin 2.8 L (3.2-5.5) g/dL Globulin 3.6 (2.1-4.2) g/dL Albumin/Globulin Ratio 0.8 L (1.0-2.2) 07/24/18 07/23/18 07/23/18 Range/Units 05:18 20:55 16:25 WBC 6.3 (4.8-10.8) x10^3/uL RBC 3.91 L (4.20-5.40) 10^6/uL Hgb 11.3 L (12.0-16.0) g/dL Hct 35.4 L (37.0-47.0) % MCV 90.4 (81.0-99.0) fL MCH 28.8 (27.0-31.0) pg MCHC 31.8 L (32.0-36.0) g/dL RDW 15.3 H (12.0-15.0) % Plt Count 165 (130-450) 10^3/uL MPV 9.0 (7.9-10.8) fL Neut # (Auto) 4.9 (1.5-6.6) 10^3/uL Lymph # (Auto) 0.7 L (1.5-3.5) 10^3/uL Mccormick # (Auto) 0.4 (0.0-1.0) 10^3/uL Eos # (Auto) 0.3 (0.0-0.7) 10^3/uL Baso # (Auto) 0.0 (0.0-0.1) 10^3/uL Absolute Nucleated RBC 0.00 x10^3/uL Nucleated RBC % 0.0 /100WBC Sodium (135-145) mmol/L Potassium (3.5-5.0) mmol/L Chloride (101-111) mmol/L Carbon Dioxide (21-32) mmol/L Anion Gap (6-13) BUN (6-20) mg/dL Creatinine (0.4-1.0) mg/dL Estimated GFR (MDRD) (>89) Glucose (70-100) mg/dL POC Whole Bld Glucose 158 H 123 H (70 - 100) mg/dL Calcium (8.5-10.3) mg/dL Total Bilirubin (0.2-1.0) mg/dL AST (10-42) IU/L ALT (10-60) IU/L Alkaline Phosphatase (42-121) IU/L Total Protein (6.7-8.2) g/dL Albumin (3.2-5.5) g/dL Globulin (2.1-4.2) g/dL Albumin/Globulin Ratio (1.0-2.2) ABX Reporting Has patient been on IV antibiotics over the past 48 hours?: Yes Sepsis Event Note (H) - Evaluation Current Stage of Sepsis: Ruled out Assessment/Plan - Problem List (1) Weakness Impression: (1) Dyspnea Impression: 07/24 pt still present mild to moderate SOB, pt has mild to moderate pleural effusion, severe COPD, and current cigarette smoker will followup pt's wish for hospice care, comfortable care in hospital per palliative care's recommendation, start with Morphine and Ativan, and Alaniz, and with Alaniz to go home continue Supplemental oxygen, DuoNeb prn Patient presented with several days of increasing shortness of breath, coughing increasing lethargy and weakness. CXR reveals increase of pleural effusion. pt is on Aspirin and Plavix, it is less likely to have PE. CTA of 07/02/18 did not reveal PE when pt was admitted with similar symptoms. pt has 95% sat on 6 liter of O2 on mask IV antibiotics with ceftriaxone Supplemental oxygen DuoNeb's prn palliative care provider report she discussed with pt and her family, pt and her family choose for hospice and plan at home (2) Loculated pleural effusion Conclusion/Plan: The patient has a loculated left pleural effusion as is noted on the CT of her chest. CXR reveals increase of pleural effusion. For now will continue treatment as above and monitor patients respiratory status to determine need for thoracentesis. (3) UTI 07/24 UA culture reveals pt has multiple antibiotic resistance bacteria ESBL, now pt is on Levaquin untill to tomorrow for hospice care. UA reveals UTI continue to treat with Rocephin followup UA culture (4) COPD Conclusion/Plan: 07/24 continue Supplemental oxygen, Duoneb as needed The patient has a history of COPD secondary to tobacco abuse. Duo nebs [id number] and as needed Supplemental oxygen (5) adrenal grand mass CT of abdomen reveals adrenal mass which indicate metastasis palliative care consult palliative care provider report she discussed with pt and her family, pt and her family choose for hospice and plan at home (6) Thyroid nodule Conclusion/Plan: thyroid nodule concern metastasis pt choose to be transfer to hospice (7) Tobacco abuse The patient continues to smoke 1 pack/day. She likely has COPD. Patient counselled on need to quit smoking. We will place the patient on a nicotine patch while she is hospitalized. (8) Hypertension stable (9) Diabetes Conclusion/Plan: Patient on Lantus 10 units nightly at home which is controlled Placed patient on sliding scale insulin hemoglobin A1c is 7.2 Check blood glucose before meals at bedtime Diabetic diet (10) Ovarian mass Conclusion/Plan: The patient has an ovarian mass for which she has been evaluated by oncology. The mass continue to grow and she has an increased CA 125 of 465. The recommendation was for her to have surgical removal of this mass however the patient's neurologist did not clear her for the procedure as he felt that there was too high risk of the patient developing another stroke. At this point the patient is not a surgical candidate. It appears that the patient discussed chemotherapy options with the oncologist but is also not a candidate for systemic chemotherapy. She was recommended for palliative care only. Consulted palliative care pt and her family choose for hospice and plan at home (11) History of CVA (cerebrovascular accident) Conclusion/Plan: The patient has a history of a CVA about 5 years ago from which she has severe left-sided weakness and is wheelchair bound. Plan: Patient will be continued on her home doses of aspirin, Plavix and Lipitor. 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 Consulted palliative care pt and her family choose for hospice and plan at home (12) hospice care/palliative care 07/24 plan d/c pt to home with hospice care tomorrow referral to hospice care insert [place], per palliative care recommendation.
[2018-07-24] MEDS: MIRTAZAPINE 15 MG TABLET PO SCH (20:38)
[2018-07-24] MEDS: COD LIVER OIL/ZINC OXIDE 113 GM TUBE TOP PRN (20:43)
[2018-07-24] MEDS: INSULIN GLARGINE 300 UNIT/3 ML PEN SUBQ SCH (21:08)
[2018-07-25] MEDS: SODIUM CHLORIDE FLUSH 0.9% 10 ML SYRINGE IVP SCH ×2 (02:02→10:09)
[2018-07-25 05:03] LABS: BASOPHILS % (AUTO) 0.9 %; EOSINOPHILS # (AUTO) 0.3 10^3/uL (0.0-0.7); EOSINOPHILS % (AUTO) 5.7 %; HGB - HEMOGLOBIN 9.8 g/dL (12.0-16.0); LYMPHOCYTES # (AUTO) 0.6 10^3/uL (1.5-3.5); LYMPHOCYTES % (AUTO) 12.8 %; MEAN CORPUSCULAR HEMOGLOBIN 29.1 pg (27.0-31.0); MEAN CORPUSCULAR HGB CONC 32.5 g/dL (32.0-36.0); MEAN CORPUSCULAR VOLUME 89.5 fL (81.0-99.0); MEAN PLATELET VOLUME 8.4 fL (7.9-10.8); MONOCYTES # (AUTO) 0.4 10^3/uL (0.0-1.0); MONOCYTES % (AUTO) 7.2 %; NEUTROPHILS # (AUTO) 3.6 10^3/uL (1.5-6.6); NEUTROPHILS % (AUTO) 73.4 %; PLT - PLATELET COUNT 185 10^3/uL (130-450); RED BLOOD COUNT 3.38 10^6/uL (4.20-5.40); RED CELL DISTRIBUTION WIDTH 15.1 % (12.0-15.0); WHITE BLOOD COUNT 4.9 x10^3/uL (4.8-10.8)
[2018-07-25 05:09] LABS: ALBUMIN 2.3 g/dL (3.2-5.5); ALBUMIN/GLOBULIN RATIO 0.6 (1.0-2.2); BILIRUBIN,TOTAL 0.3 mg/dL (0.2-1.0); CALCIUM 8.3 mg/dL (8.5-10.3); CREATININE 1.2 mg/dL (0.4-1.0); TOTAL PROTEIN 5.9 g/dL (6.7-8.2)
[2018-07-25] MEDS: MORPHINE SOL 10 MG/0.5 ML SYRINGE PO PRN ×3 (06:55→12:34)
[2018-07-25] MEDS: GABAPENTIN 300 MG CAPSULE PO SCH (06:57)
[2018-07-25] MEDS: PANTOPRAZOLE 40 MG TABLET PO SCH (06:59)
[2018-07-25 07:33] VITALS: BP 106/48
[2018-07-25] MEDS: IPRATROPIUM/ALBUTEROL 3 ML NEB INH SCH ×2 (07:42→13:20)
[2018-07-25] MEDS: BUDESONIDE 0.5 MG/2 ML NEB INH SCH (07:42)
[2018-07-25] MEDS: INSULIN ASPART 300 UNIT/3 ML PEN SUBQ SCH ×2 (07:56→11:25)
[2018-07-25] MEDS ORDERED: FUROSEMIDE 40 MG TABLET PO SCH (09:00)
[2018-07-25] MEDS: levoFLOXacin 250 MG TABLET PO SCH (10:08)
[2018-07-25] MEDS: ASPIRIN EC 325 MG TABLET PO SCH (10:08)
[2018-07-25] MEDS: CLOPIDOGREL 75 MG TABLET PO SCH (10:08)
[2018-07-25] MEDS: OXYBUTYNIN 5MG TABLET PO SCH (10:08)
[2018-07-25] MEDS: guaiFENesin 600 MG TABLET PO SCH (10:08)
[2018-07-25] MEDS: POLYETHYLENE GLYCOL 3350 17 GM PACKET PO SCH (10:08)
[2018-07-25] MEDS: NICOTINE 21 MG PATCH TOP SCH (10:08)
[2018-07-25] MEDS: COD LIVER OIL/ZINC OXIDE 113 GM TUBE TOP PRN (10:15)
--- NOTE | 2018-07-25 11:38 | Discharge Plan ---
Discharge Plan Disposition: 50 Hospice/Home DC/Xfer Condition: Serious Prescriptions: LORazepam [Ativan] 0.5 mg PO Q4H PRN #15 tablet PRN Reason: Anxiety Morphine Sulfate [Morphine Sulf Oral (Roxanol)] 5 mg PO Q2H PRN #30 ml PRN Reason: Pain/Dyspnea Diet: Diabetic Activity Restrictions: Activity as Tolerated Instruction Topics: Hospice Pain Management Additional Instructions or Follow Up instructions: you may followup hospice care when you are arrival to your home. No Smoking: If you smoke, Please STOP! Call for help. Follow-up with: Belem Doe MD [Primary Care Provider] -
--- NOTE | 2018-07-25 11:42 | DISCHARGE SUMMARY ---
"Discharge Summary Discharge Date: 07/25/18 Discharging Provider: MONET Primary Care Provider: Dr. Doe Condition at Discharge: Serious Discharge Disposition: 50 Hospice/Home DC/Xfer Discharge Facility Name: home - DIAGNOSES Admission Diagnoses: (1) Dyspnea (2) Loculated pleural effusion (3) COPD (4) UTI (urinary tract infection) (5) adrenal grand mass (6) Thyroid nodule (7) Tobacco abuse (8) Hypertension (9) Diabetes (10) Ovarian mass (11) History of CVA (cerebrovascular accident) (12) palliative care Discharge Diagnoses with Status of Each Condition: (1) Dyspnea limited improved. today 95% sats on 4 liter of O2. pt and family request transition to hospice care at home (2) Loculated pleural effusion pt and family request transition to hospice care (3) COPD O2 supplement request now. pt and family request transition to hospice care (4) UTI (urinary tract infection) pt is prescribed Levaquin per family request for hospice care (5) adrenal grand mass pt and family request transition to hospice care (6) Thyroid nodule pt and family request transition to hospice care (7) Tobacco abuse pt continue cigarette smoker (8) Hypertension pt and family request transition to hospice care (9) Diabetes pt and family request transition to hospice care (10) Ovarian mass pt and family request transition to hospice care (11) History of CVA (cerebrovascular accident) pt and family request transition to hospice care (12) hospice care pt and family request transition to hospice care. hospice care team will go to pt's home at this afternoon - HPI History of Present Illness: refer from Dr. Cyndi Carter's HPI on 07/22/18 for pt. pt was admitted for SOB, UTI, and subject fever. CT of abdomen study reveals large abdominal mass likely ovarian mass, adrenal mass,pleural effusion. Pt has hx of CVA with left side paralysis, severe COPD request high O2 supplement. pt and her family request palliative care and transfer to hospice care. - CONSULTS | PROCEDURES Consultations: palliative care and hospice care Procedures: pt and her family request palliative care and transfer to hospice care. - HOSPITAL COURSE Hospital Course: pt was admitted for SOB, UTI, and subject fever. CT of abdomen study reveals large abdominal mass likely ovarian mass, adrenal mass,pleural effusion. Pt has hx of CVA with left side paralysis, severe COPD request high O2 supplement. pt and her family request palliative care and transfer to hospice care. - ALLERGIES Allergies/Adverse Reactions: Allergies Allergy/AdvReac Type Severity Reaction Status Date / Time adhesive AdvReac Itching Verified 07/22/18 16:07 coconut AdvReac Nausea Verified 07/22/18 06:53 - MEDICATIONS Home Medications: Ambulatory Orders Medication Instructions Recorded Confirmed Aspirin [Aspirin EC] 325 mg PO DAILY 08/22/13 07/22/18 Sucralfate [Carafate] 1 gm PO ACHS 08/22/13 07/22/18 guaiFENesin [Mucinex] 600 mg PO BID #10 tablet 07/06/18 07/22/18 Acetaminophen [Tylenol] 650 mg PO Q6H PRN #1 tab 07/09/18 07/22/18 Amlodipine Besylate 10 mg PO DAILY #0 07/09/18 07/22/18 Clopidogrel [Plavix] 75 mg PO DAILY #0 07/09/18 07/22/18 Fluticasone/Salmeterol [Advair 2 each IH BID #45 blst.w.dev 07/09/18 07/22/18 250-50 Diskus] Gabapentin [Neurontin] 600 mg PO TID #0 07/09/18 07/22/18 Isosorbide Mononitrate ER [Imdur] 30 mg PO DAILY tablet 07/09/18 07/22/18 Lisinopril 20 mg PO BID #0 07/09/18 07/22/18 Mirtazapine [Remeron] 15 mg PO QPM #0 07/09/18 07/22/18 Nicotine 21 mg Patch [Nicoderm] 1 patch TOP DAILY patch 07/09/18 07/22/18 Nystatin [Nystop] 1 applic TOP BID bottle 07/09/18 07/22/18 Oxybutynin [Ditropan] 2.5 mg PO DAILY #0 07/09/18 07/22/18 Pantoprazole Sodium [Protonix] 40 mg PO QDAC #0 07/09/18 07/22/18 Tiotropium [place] [Spiriva] 2 puffs IH BID #45 cap.w.dev 07/09/18 07/22/18 diltiaZEM CD [Cardizem Cd] 120 mg PO DAILY capsule 07/09/18 07/22/18 levETIRAcetam [Levetiracetam] 750 mg PO BID #0 07/09/18 07/22/18 Insulin Glargine [Lantus Solostar] 15 unit SQ QPM 07/21/18 07/22/18 Ipratropium/Albuterol [Duoneb] 1 vial INH QID 07/21/18 07/22/18 Albuterol 2.5 mg INH RTQ4H PRN 07/22/18 07/22/18 Azithromycin [Zithromax] 1 tab PO BID 07/22/18 07/22/18 Ciprofloxacin [Cipro] 250 mg PO Q12H 07/22/18 07/22/18 Insulin Lispro [Humalog] 0 unit SUBQ ONCE 07/22/18 07/22/18 Potassium Chloride 20 meq PO DAILY 07/22/18 07/22/18 Torsemide 20 mg PO DAILY 07/22/18 07/22/18 LORazepam [Ativan] 0.5 mg PO Q4H PRN #15 tablet 07/25/18 Levofloxacin [Levaquin] 500 mg PO DAILY #5 tablet 07/25/18 Morphine Sulfate [Morphine Sulf 5 mg PO Q2H PRN #30 ml 07/25/18 Oral (Roxanol)] - PHYSICAL EXAM AT DISCHARGE General Appearance: positive: No acute distress, Alert, Lethargic Eyes Bilateral: positive: Normal inspection, PERRL, No lid inflammation ENT: positive: ENT inspection nml, Pharynx nml, No signs of dehydration. negative: Oral lesions Neck: positive: Nml inspection, Thyroid nml, No JVD, Trachea midline. negative: Tracheal deviation Respiratory: positive: Chest non-tender, Rales. negative: No respiratory distress Cardiovascular: positive: Regular rate & rhythm, No murmur, No gallop. neg ative: Tachycardia, Bradycardia, Systolic murmur, Diastolic murmur Peripheral Pulses: positive: 2+ Abdomen: positive: Non-tender. negative: No organomegaly, Tenderness, Guarding, Rebound Back: positive: Nml inspection Skin: positive: Color nml, No rash, Warm. negative: Cyanosis, Diaphoresis, Pallor Extremities: negative: Calf tenderness, Dayne's sign/cords Neurologic/Psychiatric: negative: Sensory loss, Facial droop - LABS Result Diagrams: 07/25/18 04:40 07/25/18 04:40 - SEPSIS Current Stage of Sepsis: Ruled out - FOLLOW UP Follow Up: you may followup the hospice care when you are arrival to your home - TIME SPENT Time Spent in Discharge (Minutes): 50"
--- NOTE | 2018-07-25 12:56 | CONSULTATION NOTE ---
Palliative Care Follow Up - Referral Referring Provider: Cyndi Gonsalez MD Time of Visit: [id number] Referral setting: Hospitalized patient Referral Reason: Ovarian Cancer/COPD/EBSL UTI - Information Sources Records reviewed: RN notes reviewed, Previous records reviewed History/Review of Systems obtained from: Patient, Family (daughter Ericka and Luis at bedside) Exam limitations: Clinical condition (patient with cognitive deficits related to stroke; but can particpate in conversations) - History of Present Illness Update Brief HPI Update: Please see 07/23 for expanded HPI. This is a spunky 73-year-old woman who has a very complicated history, is have been acutely hospitalized at [facility] for her progressive ovarian cancer with increasing abdominal pain, bilateral pleural effusions, COPD, and anasarca, and now has had confirmed EBS L UTI. Given patient's ongoing decline, and consistent with goals of care both for patient and family, patient to be transitioned home with hospice today. Social History - Living Situation Living arrangement: At home Living Situation: With spouse/s.o. Support System: Patient lives at home with her Luis, he is quite concerned about how he is going to manage her personal care. He has been taking care of her for the last 5 years, her physical care has become more challenging, and most acutely challenging with her recent pneumonia and functional decline. His daughter Molly will be staying with him till tomorrow, he will benefit from hospice support, but may need to hire some penitentiary care. Medications/Allergies - Medications Active Medication List: Active Medications Acetaminophen (Tylenol) 650 mg PO Q4HR PRN PRN Reason: Pain or Fever > 38C (100.4F) Last Admin: 07/24/18 19:25 Dose: 650 mg Albuterol/Ipratropium (Duoneb) 3 ml INH Q4HR PRN PRN Reason: Wheezing Last Admin: 07/24/18 04:35 Dose: 3 ml Albuterol/Ipratropium (Duoneb) 3 ml INH RTQID [facility] Last Admin: 07/25/18 07:42 Dose: 3 ml Aspirin (Ecotrin) 325 mg PO DAILY [facility] Last Admin: 07/25/18 10:08 Dose: 325 mg Budesonide (Pulmicort) 0.5 mg INH RTBID [facility] Last Admin: 07/25/18 07:42 Dose: 0.5 mg Clopidogrel Bisulfate (Plavix) 75 mg PO DAILY [facility] Last Admin: 07/25/18 10:08 Dose: 75 mg Furosemide (Lasix) 40 mg PO DAILY [facility] Last Admin: 07/25/18 10:08 Dose: 40 mg Gabapentin (Neurontin) 600 mg PO TID [facility] Last Admin: 07/25/18 06:57 Dose: 600 mg Guaifenesin (Mucinex) 600 mg PO BID [facility] Last Admin: 07/25/18 10:08 Dose: 600 mg Insulin Aspart (Novolog) 1 - 5 unit SUBQ 0800,1200,1700,2100 [facility]; Protocol Last Admin: 07/25/18 11:25 Dose: Not Given Insulin Glargine (Lantus Solostar) 15 unit SUBQ QPM [facility] Last Admin: 07/24/18 21:08 Dose: 15 unit Levalbuterol HCl (Xopenex) 1.25 mg INH Q4H PRN PRN Reason: Shortness of Air/Wheezing Levofloxacin (Levaquin) 500 mg PO DAILY [facility] Last Admin: 07/25/18 10:08 Dose: 500 mg Lorazepam (Ativan) 0.5 mg SL Q6H PRN PRN Reason: Anxiety Mirtazapine (Remeron) 15 mg PO QPM [facility] Last Admin: 07/24/18 20:38 Dose: 15 mg Morphine Sulfate (Roxanol) 5 mg PO Q2HR PRN PRN Reason: PAIN Last Admin: 07/25/18 12:34 Dose: 5 mg Nicotine (Nicoderm) 1 patch TOP DAILY [facility] Last Admin: 07/25/18 10:08 Dose: 1 patch Oxybutynin Chloride (Ditropan) 2.5 mg PO DAILY [facility] Last Admin: 07/25/18 10:08 Dose: 2.5 mg Pantoprazole Sodium (Protonix) 40 mg PO QDAC [facility] Last Admin: 07/25/18 06:59 Dose: 40 mg Polyethylene Glycol (Miralax) 17 gm PO DAILY [facility] Last Admin: 07/25/18 10:08 Dose: 17 gm Prochlorperazine Edisylate (Compazine Inj) 10 mg IVP Q6HR PRN PRN Reason: Nausea / Vomiting Sodium Chloride (Normal Saline Flush 0.9%) 10 ml IVP PRN PRN PRN Reason: NEEDED PER PROVIDER ORDERS Sodium Chloride (Normal Saline Flush 0.9%) 10 ml IVP 0100,0900,1700 [facility] Last Admin: 07/25/18 10:09 Dose: Not Given Vitamin A/Vitamin D (Vitamin A & D Ointment) 1 applic TOP PRN PRN PRN Reason: Skin Care Zinc Oxide (Desitin) 113 gm TOP PRN PRN PRN Reason: Skin Care Last Admin: 07/25/18 10:15 Dose: 1 applic Aspirin [Aspirin EC] 325 mg PO DAILY 08/22/13 Sucralfate [Carafate] 1 gm PO ACHS 08/22/13 Insulin Glargine [Lantus Solostar] 15 unit SQ QPM 07/21/18 Ipratropium/Albuterol [Duoneb] 1 vial INH QID 07/21/18 Albuterol 2.5 mg INH RTQ4H PRN 07/22/18 Azithromycin [Zithromax] 1 tab PO BID 07/22/18 Ciprofloxacin [Cipro] 250 mg PO Q12H 07/22/18 Insulin Lispro [Humalog] 0 unit SUBQ ONCE 07/22/18 Potassium Chloride 20 meq PO DAILY 07/22/18 Torsemide 20 mg PO DAILY 07/22/18 - Allergies Allergies/Adverse Reactions: Allergies Allergy/AdvReac Type Severity Reaction Status Date / Time adhesive AdvReac Itching Verified 07/22/18 16:07 coconut AdvReac Nausea Verified 07/22/18 06:53 Review of Systems - Constitutional Constitutional: reports: Fatigue - Eyes Eyes: reports: Vision loss - Ears, Nose & Throat Ears, Nose & Throat: reports: Hearing loss, Dry mouth - Respiratory Respiratory: reports: Other ( reports patient has not asked further about smoking; is hoping will be content at home) - Gastrointestinal Gastrointestinal: reports: Other (still eating moderate amounts, needing assistance with eating) - Genitourinary Genitourinary: reports: Other (manzanares cathether) - Musculoskeletal Musculoskeletal: reports: Limited range of motion (left sided hemiplegia), Muscle weakness, Other (has been bedbound since admit;) - Integumentary Integumentary: reports: Pruritis, Dryness, Other (thickened curled toe nails) - Neurological Neurological: reports: General weakness, Memory problems - Psychiatric Psychiatric: reports: Anxiety - Endocrine Endocrine: reports: Diabetes type 2 - Hematologic/Lymphatic Hematologic/Lymphatic: reports: Recurrent infections (dx with EBSL UTI, family would like to complete treatment with AB as comfort measure; this was communicated to hospitalist/hospice team) - All Other Systems All Other Systems: reports: Reviewed and negative Physical Exam - Vital Signs Vital Signs: Vital Signs x48h Temp Pulse Pulse Resp BP Pulse Ox 07/25/18 07:43 70 20 07/25/18 07:27 36.2 C L 69 20 106/48 L 95 - Physical Exam General Appearance: positive: No acute distress Neck: positive: Trachea midline Respiratory: positive: No respiratory distress (likes oxygen mask) Abdomen: positive: Tenderness, Distended, Obese Skin: positive: Pallor, Dryness, Pruritis Extremities: positive: Pedal edema (improving), Other (left and right arm swelling improving) Neurologic/Psychiatric: positive: Mood/affect nml, Disoriented to time, Weakness, Flat affect Palliative Care - POLST Patient has POLST: Yes POLST Status: DNR, Comfort Measures (update POLST to reflect current goals of comfort focused treatmetn) Pain: Pain improved, Location (Patient getting relief with small doses of morphine at 5 mg, for abdominal pain and discomfort. Would recommend continuing the gabapentin 600 mg 3 times daily secondary to known severe neuropathies.) Tiredness/Fatigue: Moderate (4-6) Drowsiness/Sedation: Moderate (4-6) Nausea: None Depression: Mild (1-3) Anxiety: Mild (1-3) Dyspnea: Mild (1-3) Anorexia: Mild (1-3) Sleep: Variable sleep pattern - Palliative Care Discussion: Has been remains somewhat anxious about bringing her home, this is mostly related to the focus on how best to manage her in bed and be able to change her. Reviewed role of hospice team as well as teaching to be provided by RN for her patient's care. Will receive bathing assistance from home health aide. Daughter concerned patient get adequate medications for uncontrolled pain, she will be able to stay through the evening to settle them both in. 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 Verbal report given to hospice nurse regarding family's concerns and high anxiety. Did complete the D[facility]G [facility] with reflection of new goals, and discussing weighing benefits and burdens of treatment for UTI, family would like to continue to treat as long as patient able to swallow as a comfort measure. I believe this is quite reasonable given patient's distress in the past. Results - Lab Results Lab results reviewed: Yes Fish Bones: 07/25/18 04:40 07/25/18 04:40 Lab and Imaging Results: Lab Results x24hrs 07/25/18 07/25/18 07/25/18 Range/Units 11:13 07:26 04:40 WBC (4.8-10.8) x10^3/uL RBC (4.20-5.40) 10^6/uL Hgb (12.0-16.0) g/dL Hct (37.0-47.0) % MCV (81.0-99.0) fL MCH (27.0-31.0) pg MCHC (32.0-36.0) g/dL RDW (12.0-15.0) % Plt Count (130-450) 10^3/uL MPV (7.9-10.8) fL Neut # (Auto) (1.5-6.6) 10^3/uL Lymph # (Auto) (1.5-3.5) 10^3/uL Banner # (Auto) (0.0-1.0) 10^3/uL Eos # (Auto) (0.0-0.7) 10^3/uL Baso # (Auto) (0.0-0.1) 10^3/uL Absolute Nucleated RBC x10^3/uL Nucleated RBC % /100WBC Sodium 138 (135-145) mmol/L Potassium 3.8 (3.5-5.0) mmol/L Chloride 103 (101-111) mmol/L Carbon Dioxide 29 (21-32) mmol/L Anion Gap 6.0 (6-13) BUN 15 (6-20) mg/dL Creatinine 1.2 H (0.4-1.0) mg/dL Estimated GFR (MDRD) 44 L (>89) Glucose 108 H (70-100) mg/dL POC Whole Bld Glucose 108 H 91 (70 - 100) mg/dL Calcium 8.3 L (8.5-10.3) mg/dL Total Bilirubin 0.3 (0.2-1.0) mg/dL AST 15 (10-42) IU/L ALT 17 (10-60) IU/L Alkaline Phosphatase 56 (42-121) IU/L Total Protein 5.9 L (6.7-8.2) g/dL Albumin 2.3 L (3.2-5.5) g/dL Globulin 3.6 (2.1-4.2) g/dL Albumin/Globulin Ratio 0.6 L (1.0-2.2) 07/25/18 07/24/18 07/24/18 Range/Units 04:40 20:54 16:40 WBC 4.9 (4.8-10.8) x10^3/uL RBC 3.38 L (4.20-5.40) 10^6/uL Hgb 9.8 L (12.0-16.0) g/dL Hct 30.2 L (37.0-47.0) % MCV 89.5 (81.0-99.0) fL MCH 29.1 (27.0-31.0) pg MCHC 32.5 (32.0-36.0) g/dL RDW 15.1 H (12.0-15.0) % Plt Count 185 (130-450) 10^3/uL MPV 8.4 (7.9-10.8) fL Neut # (Auto) 3.6 (1.5-6.6) 10^3/uL Lymph # (Auto) 0.6 L (1.5-3.5) 10^3/uL Banner # (Auto) 0.4 (0.0-1.0) 10^3/uL Eos # (Auto) 0.3 (0.0-0.7) 10^3/uL Baso # (Auto) 0.0 (0.0-0.1) 10^3/uL Absolute Nucleated RBC 0.00 x10^3/uL Nucleated RBC % 0.0 /100WBC Sodium (135-145) mmol/L Potassium (3.5-5.0) mmol/L Chloride (101-111) mmol/L Carbon Dioxide (21-32) mmol/L Anion Gap (6-13) BUN (6-20) mg/dL Creatinine (0.4-1.0) mg/dL Estimated GFR (MDRD) (>89) Glucose (70-100) mg/dL POC Whole Bld Glucose 125 H 140 H (70 - 100) mg/dL Calcium (8.5-10.3) mg/dL Total Bilirubin (0.2-1.0) mg/dL AST (10-42) IU/L ALT (10-60) IU/L Alkaline Phosphatase (42-121) IU/L Total Protein (6.7-8.2) g/dL Albumin (3.2-5.5) g/dL Globulin (2.1-4.2) g/dL Albumin/Globulin Ratio (1.0-2.2) Impression and Recommendations - Palliative Care Impression: This is a 73-year-old woman with progressive ovarian cancer, increasing abdominal discomfort, anasarca, bilateral pleural effusions, COPD, and EBS L UTI. Goal is to transition patient home with hospice, pending discharge today. Recommendations/Counseling Done: 1. Pain of neoplastic origin. Patient is getting relief from morphine 5 mg, this is of relief to her family that this is going to be an effective tool. They do have prescription, have been given instructions up hospice medications prior to discharge to allow hospice nurse for teaching. Call the hospice to coordinate picking up at [facility]. Would continue gabapentin 600 mg 3 times daily secondary to patient's significant neuropathies. 2. EBS L UTI. Patient's culture and sensitivities have finally come back, did start Levaquin, follow up with hospitalist, RX provided for 5 more days. Patient does have a Manzanares for ease of care, also suspect will be of benefit as patient has been having urinary retention. 3. Advanced care planning. Family conference with and daughter, reviewed goals of care, completed the DOUG [facility], report given to hospice team. Counseling and psychosocial support given and anticipatory guidance. Time Spent: 20 minutes with greater than 50% of this done in counseling regarding goals of care, hospice benefit, coordination of care with hospice team and discharge transitioning.
== END 2018-07-25 13:40 | disposition home or self-care (01) | DRG 690 ==
LOC: EDUNIT# → ED 06:32 → MS2 13:35
PROVIDERS: ADMIT Internal Medicine; ATTEND Nurse Practitioner Gerontology
DX: N30.00 Acute cystitis without hematuria (principal); N39.0 Urinary tract infection, site not specified; I50.30 Unspecified diastolic (congestive) heart failure; I69.954 Hemiplegia and hemiparesis following unspecified cerebrovascular disease affecting left non-dominant side; I69.959 Hemiplegia and hemiparesis following unspecified cerebrovascular disease affecting unspecified side; D49.59 Neoplasm of unspecified behavior of other genitourinary organ; E78.00 Pure hypercholesterolemia, unspecified; F17.200 Nicotine dependence, unspecified, uncomplicated; J44.9 Chronic obstructive pulmonary disease, unspecified; D35.00 Benign neoplasm of unspecified adrenal gland; E04.1 Nontoxic single thyroid nodule; F17.210 Nicotine dependence, cigarettes, uncomplicated; I10 Essential (primary) hypertension; R19.09 Other intra-abdominal and pelvic swelling, mass and lump; Z16.12 Extended spectrum beta lactamase (ESBL) resistance; I11.0 Hypertensive heart disease with heart failure; S31.000A Unspecified open wound of lower back and pelvis without penetration into retroperitoneum, initial encounter; G89.3 Neoplasm related pain (acute) (chronic); Z66 Do not resuscitate; Z51.5 Encounter for palliative care
CPT/HCPCS: 36415; 36600; 51701; 71045; 74177; 80053; 81001; 81003; 82803; 83036; 83605; 83690; 83735; 83880; 85025; 85610; 85730; 86304; 87040; 87077; 87086; 87181; 93005; 94640; 96365; 96375; 99231; 99233; 99284; 99285

== ENCOUNTER 2018-07-25 13:22 | Outpatient (CLI) | payer MEDICARE, OTHER | END 2018-07-25 13:23 | disposition home or self-care (01) | LOC: EMS 13:22 | PROVIDERS: ATTEND Surgery | DX: J44.9 Chronic obstructive pulmonary disease, unspecified (principal); Z74.01 Bed confinement status | CPT/HCPCS: A0425; A0428 ==